=== PATIENT | male | born 1945 | race Caucasian/White ===

== ENCOUNTER 2017-08-26 08:45 | Outpatient (CLI) | payer MEDICARE, OTHER, SELFPAY | END 2017-08-26 09:45 | disposition home or self-care (01) | PROVIDERS: Visit Provider Allergy & Immunology | DX: J45.998 Other asthma (principal) | CPT/HCPCS: 96372; J2357 ==

== ENCOUNTER 2017-09-09 09:11 | Outpatient (CLI) | payer MEDICARE, OTHER, SELFPAY ==
[2017-09-09 09:30] VITALS: BMI 37.5
[2017-09-09 10:47] VITALS: BP 134/73; PULSE 78; RESP 18; TEMP 36.8; O2SAT 91
--- NOTE | 2017-09-09 10:51 | PC.NURSE ---
xolair injection given subcutaneous injection to right arm and left arm. dose divided into 2 doses.
--- NOTE | 2017-09-09 10:55 | PC.NURSE ---
xolair given as 2 subcutaneous injections, i injection to right arm and 1 to left arm.
== END 2017-09-09 10:15 | disposition home or self-care (01) ==
LOC: INF 09:13
PROVIDERS: Visit Provider Allergy & Immunology
DX: J45.998 Other asthma (principal)
CPT/HCPCS: 96372; J2357

== ENCOUNTER 2017-09-23 09:00 | Outpatient (CLI) | payer MEDICARE, OTHER, SELFPAY ==
[2017-09-23 09:24] VITALS: BMI 36.5
[2017-09-23 09:40] VITALS: BP 159/86; PULSE 77; RESP 18; O2SAT 95
== END 2017-09-23 09:55 | disposition home or self-care (01) ==
LOC: INF 09:11
PROVIDERS: Family Provider Allergy & Immunology; Visit Provider Allergy & Immunology
DX: J45.998 Other asthma (principal)
CPT/HCPCS: 96372; J2357

== ENCOUNTER 2017-10-07 10:00 | Outpatient (CLI) | payer MEDICARE, OTHER, SELFPAY ==
[2017-10-07 10:45] VITALS: BP 122/70; PULSE 66; RESP 20; TEMP 36.4; O2SAT 96
[2017-10-07 14:05] VITALS: BP 122/70; PULSE 68; RESP 20; TEMP 36.4; O2SAT 96
== END 2017-10-07 10:55 | disposition home or self-care (01) ==
LOC: INF 10:27
PROVIDERS: Family Provider Allergy & Immunology; Visit Provider Allergy & Immunology
DX: J45.998 Other asthma (principal)
CPT/HCPCS: 96372; J2357

== ENCOUNTER 2017-10-21 08:45 | Outpatient (CLI) | payer MEDICARE, SELFPAY ==
[2017-10-21 09:10] VITALS: BMI 36.5
[2017-10-21 09:30] VITALS: BP 130/78; PULSE 73; RESP 18; TEMP 36.9
[2017-10-21 09:48] VITALS: BP 130/78; PULSE 73; RESP 18; TEMP 36.9
== END 2017-10-21 09:48 | disposition home or self-care (01) ==
LOC: INF 08:52
PROVIDERS: Family Provider Allergy & Immunology; Visit Provider Allergy & Immunology
DX: J45.998 Other asthma (principal)
CPT/HCPCS: 96372; J2357

== ENCOUNTER 2017-12-09 09:15 | Outpatient (CLI) | payer MEDICARE, OTHER, SELFPAY ==
[2017-12-09 09:20] VITALS: BP 136/77; PULSE 76; RESP 18; TEMP 36.9; O2SAT 98
[2017-12-09 10:22] VITALS: BP 136/78; PULSE 76; RESP 18; TEMP 36.6; O2SAT 98
== END 2017-12-09 10:22 | disposition home or self-care (01) ==
LOC: INF 09:27
PROVIDERS: Family Provider Allergy & Immunology; Visit Provider Allergy & Immunology
DX: J45.998 Other asthma (principal)
CPT/HCPCS: 96372; J2357

== ENCOUNTER → 2017-12-21 13:03 | Outpatient (POV) | payer MEDICARE, SELFPAY ==
[2017-12-21 19:48] LABS: T4 (Thyroxine) 8.7 ug/dl (4.7-13.3); Thyroid Stimulating Hormone 1.52 uIU/ml (0.358-3.740); Triiodothryronine (T3) Uptake 34 % (31-39)
[2017-12-22 15:35] LABS: Free T4 (Free Thyroxine) 0.92 ng/dl (0.76-1.46)
[2017-12-23 12:58] LABS: Triiodothyronine (T3) Total 127 ng/dL (71-180)
[2017-12-28 06:16] LABS: AChR Binding Abs <0.03 nmol/L (0.00-0.24)
[2018-01-06 13:45] LABS: AChR Modulating Ab <12 % (0-20)
== END ==
PROVIDERS: Family Provider Allergy & Immunology
DX: D43.2 Neoplasm of uncertain behavior of brain, unspecified (principal); E05.00 Thyrotoxicosis with diffuse goiter without thyrotoxic crisis or storm
CPT/HCPCS: 36415; 84238; 84436; 84439; 84443; 84479; 84480

== ENCOUNTER 2017-12-23 09:22 | Outpatient (CLI) | payer MEDICARE, OTHER, SELFPAY ==
[2017-12-23 10:00] VITALS: BP 137/78; PULSE 81; RESP 18; TEMP 36.4; O2SAT 95
== END 2017-12-23 10:00 | disposition home or self-care (01) ==
LOC: INF 09:22
PROVIDERS: Family Provider Allergy & Immunology; Visit Provider Allergy & Immunology
DX: J45.998 Other asthma (principal)
CPT/HCPCS: 96372; J2357

== ENCOUNTER → 2017-12-26 08:38 | Outpatient (CLI) | payer MEDICARE, SELFPAY ==
[2017-12-26 09:01] LABS: Blood Urea Nitrogen 17 mg/dL (7-18); Creatinine,Serum 1.18 mg/dL (0.70-1.30); Estimated Glomerular Filt Rate 61 ml/min (>60); GFR (African American) 74 ML/MIN (>60)
== END ==
PROVIDERS: Family Provider Allergy & Immunology
DX: D49.6 Neoplasm of unspecified behavior of brain (principal); E05.00 Thyrotoxicosis with diffuse goiter without thyrotoxic crisis or storm
CPT/HCPCS: 36415; 82565; 84520

== ENCOUNTER 2018-01-06 09:00 | Outpatient (CLI) | payer MEDICARE, OTHER, SELFPAY ==
[2018-01-06 09:05] VITALS: BP 139/64; PULSE 86; RESP 18; TEMP 36.8; O2SAT 92
[2018-01-06 09:30] VITALS: BMI 36.5
[2018-01-06 09:50] VITALS: BP 139/64; PULSE 86; RESP 18; TEMP 36.8; O2SAT 92
--- NOTE | 2018-01-06 10:32 | PC.NURSE ---
injection given bilateral upper arm, bandaid applied
== END 2018-01-06 09:50 | disposition home or self-care (01) ==
LOC: INF 09:12
PROVIDERS: Family Provider Allergy & Immunology; Visit Provider Allergy & Immunology
DX: J45.998 Other asthma (principal)
CPT/HCPCS: 96372; J2357

== ENCOUNTER 2018-01-20 08:20 | Outpatient (CLI) | payer MEDICARE, OTHER, SELFPAY ==
[2018-01-20 08:55] VITALS: BP 124/73; PULSE 73; RESP 18; O2SAT 95
== END 2018-01-20 09:15 | disposition home or self-care (01) ==
LOC: INF 08:29
PROVIDERS: Family Provider Allergy & Immunology; Visit Provider Allergy & Immunology
DX: J45.998 Other asthma (principal)
CPT/HCPCS: 96372; J2357

== ENCOUNTER 2018-02-03 08:20 | Outpatient (CLI) | payer MEDICARE, OTHER, SELFPAY ==
[2018-02-03 09:00] VITALS: BP 130/76; PULSE 84; RESP 18; O2SAT 97
== END 2018-02-03 09:20 | disposition home or self-care (01) ==
LOC: INF 08:26
PROVIDERS: Family Provider Allergy & Immunology; Visit Provider Allergy & Immunology
DX: J45.998 Other asthma (principal)
CPT/HCPCS: 96372; J2357

== ENCOUNTER 2018-02-24 08:39 | Outpatient (CLI) | payer MEDICARE, OTHER, SELFPAY ==
[2018-02-24 08:57] VITALS: BP 146/80; PULSE 74; RESP 18; TEMP 36.7; O2SAT 98
== END 2018-02-24 09:16 | disposition home or self-care (01) ==
LOC: INF 08:39
PROVIDERS: Family Provider Allergy & Immunology; Visit Provider Allergy & Immunology
DX: J45.998 Other asthma (principal)
CPT/HCPCS: 96372; J2357

== ENCOUNTER → 2018-03-02 08:02 | Outpatient (CLI) | payer MEDICARE, OTHER, SELFPAY ==
--- NOTE | 2018-03-02 08:29 | CI_ITS ---
Cerebrovascular Exam Indications: Transient vision loss 368.12. 780.4 Dizziness and giddiness. IMPRESSIONS 1. Study suggests 20-49% stenosis involving the right internal carotid artery and the left internal carotid artery. 2. Unable to visualize bilateral veterbrals Carotid duplex study. Complete study and Doppler flow study including spectral analysis, color and hollis scale imaging. Height: Height: 172.7cm. Height: 68in. Weight: Weight: 108.9kg. Weight: 239.5lb. Body mass index: BMI: 36.5kg/m^2. Body surface area: BSA: 2.33m^2. Location: Vascular laboratory. Patient status: Outpatient. Tables: Arterial flow: + +--------+--------+ Location V sys V ed + +--------+--------+ Right CCA - proximal 99.3cm/s 17cm/s + +--------+--------+ Right CCA - distal 80.5cm/s 23.3cm/s + +--------+--------+ Right ECA 114cm/s -------- + +--------+--------+ Right ICA - proximal 106cm/s 23.9cm/s + +--------+--------+ Right ICA - mid 77.3cm/s 28.3cm/s + +--------+--------+ Right ICA - distal 62.9cm/s 22.6cm/s + +--------+--------+ Left CCA - proximal 98.7cm/s 21.4cm/s + +--------+--------+ Left CCA - distal 91.1cm/s 24.5cm/s + +--------+--------+ Left ECA 98.7cm/s -------- + +--------+--------+ Left ICA - proximal 63.8cm/s 26cm/s + +--------+--------+ Left ICA - mid 64.8cm/s 27cm/s + +--------+--------+ Left ICA - distal 78.1cm/s 27cm/s + +--------+--------+ Velocity ratios: + + + + + + Right, V sys Right, V ed Left, V sys Left, V ed + + + + + + Max ICA/dist CCA 1.32 1.21 0.86 1.1 + + + + + + (Report amended ) Electronically signed by: Moises Perkins [id number]
--- NOTE | 2018-03-02 09:07 | CT_ITS ---
CT head/brain wo/w con HISTORY: ITS.REASON: MONOCULAR DIPLOPIA OF LEFT EYE ORDERING PHYSICIAN: Rukhsana Egan MD PATIENT AGE: 72 years COMPARISON: None TECHNIQUE: Axial images obtained without and with 100 mL of 300. Brain and bone windows reviewed. All CT scans at the facility use one or more dose reduction, viz: automated exposure control; ma/kV adjustment per patient size (including targeted exams where dose is matched to indication; i.e. head); or iterative reconstruction technique. FINDINGS: No midline shift, mass effect, intracranial hemorrhage, hydrocephalus, or extra-axial fluid collection is evident. No enhancing lesions are evident. The occipital horn of the right ventricle is slightly prominent compared to the small occipital horn of the left lateral ventricle. This is a question clinical significance. No enhancing lesion or areas of encephalomalacia are evident. The calvarium has an unremarkable appearance. No mastoid effusion. No sinus air-fluid levels.. There is mild mucosal thickening of the left maxillary sinus with small air-fluid level and mild mucosal thickening of the ethmoid sinuses as well as the sphenoid sinuses. IMPRESSION: 1. No acute intracranial findings. 2. Asymmetry in the occipital horns of the lateral ventricles with the right being slightly prominent. This is of questionable clinical significance. MRI may further evaluate if clinically warranted. 3. Mild sinus disease
== END ==
PROVIDERS: Family Provider Allergy & Immunology; PCP Family Medicine; Visit Provider Family Medicine
DX: H53.2 Diplopia (principal)
CPT/HCPCS: 70470; 93880; Q9967

== ENCOUNTER 2018-03-10 09:00 | Outpatient (CLI) | payer MEDICARE, OTHER, SELFPAY ==
[2018-03-10 09:35] VITALS: BP 143/74; PULSE 78; RESP 18; TEMP 36.5; O2SAT 96
== END 2018-03-10 10:00 | disposition home or self-care (01) ==
LOC: INF 09:06
PROVIDERS: Family Provider Allergy & Immunology; PCP Family Medicine; Visit Provider Allergy & Immunology
DX: J45.998 Other asthma (principal)
CPT/HCPCS: 96372; J2357

== ENCOUNTER → 2018-03-15 14:04 | Outpatient (POV) | payer MEDICARE, SELFPAY | PROVIDERS: Family Provider Allergy & Immunology; PCP Family Medicine | DX: Z00.00 Encounter for general adult medical examination without abnormal findings (principal) ==

== ENCOUNTER 2018-03-24 09:15 | Outpatient (CLI) | payer MEDICARE, OTHER, SELFPAY ==
[2018-03-24 09:35] VITALS: BP 135/82; PULSE 83; RESP 18; O2SAT 95
== END 2018-03-24 09:55 | disposition home or self-care (01) ==
LOC: INF 09:25
PROVIDERS: Family Provider Allergy & Immunology; PCP Family Medicine; Visit Provider Allergy & Immunology
DX: J45.998 Other asthma (principal)
CPT/HCPCS: 96372; J2357

== ENCOUNTER 2018-04-07 08:45 | Outpatient (CLI) | payer MEDICARE, OTHER, SELFPAY ==
[2018-04-07 09:25] VITALS: BP 123/77; PULSE 78; RESP 18; O2SAT 96
== END 2018-04-07 09:25 | disposition home or self-care (01) ==
LOC: INF 08:45
PROVIDERS: Family Provider Allergy & Immunology; PCP Family Medicine; Visit Provider Allergy & Immunology
DX: J45.998 Other asthma (principal)
CPT/HCPCS: 96372; J2357

== ENCOUNTER 2018-04-21 08:46 | Outpatient (CLI) | payer MEDICARE, OTHER, SELFPAY ==
[2018-04-21 09:10] VITALS: BP 151/91; PULSE 77; RESP 18; TEMP 36.6; O2SAT 96
== END 2018-04-21 09:40 | disposition home or self-care (01) ==
LOC: INF 08:46
PROVIDERS: Family Provider Allergy & Immunology; PCP Family Medicine; Visit Provider Allergy & Immunology
DX: J45.998 Other asthma (principal)
CPT/HCPCS: 96372; J2357

== ENCOUNTER 2018-05-05 09:05 | Outpatient (CLI) | payer MEDICARE, OTHER, SELFPAY ==
[2018-05-05 09:40] VITALS: BP 156/82; PULSE 82; RESP 20; O2SAT 96
== END 2018-05-05 10:00 | disposition home or self-care (01) ==
LOC: INF 09:18
PROVIDERS: Family Provider Allergy & Immunology; PCP Family Medicine; Visit Provider Allergy & Immunology
DX: J45.998 Other asthma (principal)
CPT/HCPCS: 96372; J2357

== ENCOUNTER 2018-05-19 08:55 | Outpatient (CLI) | payer MEDICARE, OTHER, SELFPAY ==
[2018-05-19 09:20] VITALS: BP 140/90; PULSE 81; RESP 18; O2SAT 96
== END 2018-05-19 09:40 | disposition home or self-care (01) ==
LOC: INF 09:05
PROVIDERS: PCP Family Medicine; Visit Provider Allergy & Immunology
DX: J45.998 Other asthma (principal)
CPT/HCPCS: 96372; J2357

== ENCOUNTER 2018-06-02 09:00 | Outpatient (CLI) | payer MEDICARE, OTHER, SELFPAY ==
[2018-06-02 09:35] VITALS: BP 119/78; PULSE 80; RESP 18; TEMP 36.6; O2SAT 96
--- NOTE | 2018-06-02 13:53 | PC.NURSE ---
given in both arms
== END 2018-06-02 09:45 | disposition home or self-care (01) ==
LOC: INF 09:16
PROVIDERS: Family Provider Allergy & Immunology; PCP Family Medicine; Visit Provider Allergy & Immunology
DX: J45.998 Other asthma (principal)
CPT/HCPCS: 96372; J2357

== ENCOUNTER 2018-06-23 09:16 | Outpatient (CLI) | payer MEDICARE, OTHER, SELFPAY ==
[2018-06-23 09:18] VITALS: BP 117/72; PULSE 80; RESP 20; TEMP 36.9; O2SAT 96
--- NOTE | 2018-06-23 09:35 | PC.NURSE ---
given in both arms;
== END 2018-06-23 09:39 | disposition home or self-care (01) ==
LOC: INF 09:16
PROVIDERS: Visit Provider Allergy & Immunology
DX: J45.998 Other asthma (principal)
CPT/HCPCS: 96372; J2357

== ENCOUNTER 2018-07-07 09:00 | Outpatient (CLI) | payer MEDICARE, OTHER, SELFPAY ==
[2018-07-07 09:00] VITALS: BP 128/77; PULSE 68; RESP 20; TEMP 36.9; O2SAT 95
--- NOTE | 2018-07-07 12:05 | PC.NURSE ---
injection given in both arms
== END 2018-07-07 09:30 | disposition home or self-care (01) ==
LOC: INF 09:34
PROVIDERS: Visit Provider Allergy & Immunology
DX: J45.998 Other asthma (principal)
CPT/HCPCS: 96372; J2357

== ENCOUNTER 2018-07-19 08:53 | Outpatient (CLI) | payer MEDICARE, OTHER, SELFPAY ==
[2018-07-19 09:18] VITALS: BP 128/71; PULSE 86; RESP 18; TEMP 36.6; O2SAT 97
== END 2018-07-19 09:29 | disposition home or self-care (01) ==
LOC: INF 08:53
PROVIDERS: Visit Provider Allergy & Immunology
DX: J45.998 Other asthma (principal)
CPT/HCPCS: 96372; J2357

== ENCOUNTER 2018-08-04 09:25 | Outpatient (CLI) | payer MEDICARE, OTHER, SELFPAY ==
[2018-08-04 09:42] VITALS: BP 126/73; PULSE 83; RESP 18; TEMP 36.5
== END 2018-08-04 10:00 | disposition home or self-care (01) ==
LOC: INF 09:33
PROVIDERS: Visit Provider Allergy & Immunology
DX: J45.998 Other asthma (principal)
CPT/HCPCS: 96372; J2357

== ENCOUNTER 2018-10-06 09:00 | Outpatient (CLI) | payer MEDICARE, OTHER, SELFPAY ==
[2018-10-06 09:25] VITALS: BP 136/74; PULSE 89; RESP 18; TEMP 36.9; O2SAT 94
[2018-10-06 09:40] VITALS: BP 136/74; PULSE 89; RESP 18; TEMP 36.9; O2SAT 94
== END 2018-10-06 09:40 | disposition home or self-care (01) ==
LOC: INF 09:40
PROVIDERS: Visit Provider Allergy & Immunology
DX: J45.998 Other asthma (principal)
CPT/HCPCS: 96372; J2357

== ENCOUNTER 2018-10-17 09:18 | Outpatient (CLI) | payer MEDICARE, OTHER, SELFPAY ==
[2018-10-17 09:21] VITALS: BP 134/77; PULSE 69; RESP 18; TEMP 36.7; O2SAT 95; BMI 35.7
== END 2018-10-17 09:40 | disposition home or self-care (01) ==
LOC: INF 09:18
PROVIDERS: Visit Provider Allergy & Immunology
DX: J45.998 Other asthma (principal)
CPT/HCPCS: 96372; J2357

== ENCOUNTER 2018-11-03 09:00 | Outpatient (CLI) | payer MEDICARE, OTHER, SELFPAY ==
[2018-11-03 09:30] VITALS: BP 137/72; PULSE 95; RESP 18; O2SAT 96
== END 2018-11-03 09:45 | disposition home or self-care (01) ==
LOC: INF 09:07
PROVIDERS: Visit Provider Allergy & Immunology
DX: J45.998 Other asthma (principal)
CPT/HCPCS: 96372; J2357

== ENCOUNTER 2018-11-17 09:23 | Outpatient (CLI) | payer MEDICARE, OTHER, SELFPAY ==
[2018-11-17 10:00] VITALS: BP 137/73; PULSE 77; RESP 18; O2SAT 96
== END 2018-11-17 10:00 | disposition home or self-care (01) ==
LOC: INF 09:23
PROVIDERS: Visit Provider Allergy & Immunology
DX: J45.998 Other asthma (principal)
CPT/HCPCS: 96372; J2357

== ENCOUNTER 2018-12-01 09:29 | Outpatient (CLI) | payer MEDICARE, OTHER, SELFPAY ==
[2018-12-01 09:50] VITALS: BP 141/75; PULSE 83; RESP 18; TEMP 36.9; O2SAT 91
== END 2018-12-01 10:05 | disposition home or self-care (01) ==
LOC: INF 09:29
PROVIDERS: Visit Provider Allergy & Immunology
DX: J45.998 Other asthma (principal)
CPT/HCPCS: 96372; J2357

== ENCOUNTER 2018-12-29 08:40 | Outpatient (CLI) | payer MEDICARE, OTHER, SELFPAY ==
[2018-12-29 09:10] VITALS: BP 155/76; PULSE 79; RESP 18; TEMP 36.6; O2SAT 95
== END 2018-12-29 09:20 | disposition home or self-care (01) ==
LOC: INF 08:47
PROVIDERS: Visit Provider Allergy & Immunology
DX: J45.998 Other asthma (principal)
CPT/HCPCS: 96372; J2357

== ENCOUNTER 2019-01-12 08:55 | Outpatient (CLI) | payer MEDICARE, OTHER, SELFPAY ==
[2019-01-12 09:10] VITALS: BP 151/84; PULSE 77; RESP 18; TEMP 36.6; O2SAT 95
== END 2019-01-12 09:30 | disposition home or self-care (01) ==
LOC: INF 08:55
PROVIDERS: Visit Provider Allergy & Immunology
DX: J45.998 Other asthma (principal)
CPT/HCPCS: 96372; J2357

== ENCOUNTER 2019-01-26 09:13 | Outpatient (CLI) | payer MEDICARE, OTHER, SELFPAY ==
[2019-01-26 09:20] VITALS: BP 128/74; PULSE 68; RESP 20; TEMP 36.9; O2SAT 95
[2019-01-26 09:40] VITALS: BP 112/74; PULSE 68; RESP 20; TEMP 36.9; O2SAT 95
== END 2019-01-26 09:40 | disposition home or self-care (01) ==
LOC: INF 09:13
PROVIDERS: Visit Provider Allergy & Immunology
DX: J45.998 Other asthma (principal)
CPT/HCPCS: 96372; J2357

== ENCOUNTER 2019-02-09 09:29 | Outpatient (CLI) | payer MEDICARE, OTHER, SELFPAY ==
--- NOTE | 2019-02-09 09:31 | PC.NURSE ---
given in both arms xolair
[2019-02-09 09:33] VITALS: BP 145/75; PULSE 76; RESP 20; TEMP 36.7; O2SAT 95
== END 2019-02-09 09:36 | disposition home or self-care (01) ==
LOC: INF 09:29
PROVIDERS: Visit Provider Allergy & Immunology
DX: J45.998 Other asthma (principal)
CPT/HCPCS: 96372; J2357

== ENCOUNTER → 2019-02-21 14:21 | Outpatient (POV) | payer MEDICARE, OTHER, SELFPAY | DX: Z00.00 Encounter for general adult medical examination without abnormal findings (principal) ==

== ENCOUNTER 2019-03-09 09:00 | Outpatient (CLI) | payer MEDICARE, OTHER, SELFPAY ==
[2019-03-09 09:19] VITALS: BP 141/79; PULSE 80; RESP 20; TEMP 36.7; O2SAT 96
== END 2019-03-09 09:30 | disposition home or self-care (01) ==
LOC: INF 09:00
PROVIDERS: Visit Provider Allergy & Immunology
DX: J45.998 Other asthma (principal)
CPT/HCPCS: 96372; J2357

== ENCOUNTER 2019-03-23 09:05 | Outpatient (CLI) | payer MEDICARE, OTHER, SELFPAY ==
[2019-03-23 09:32] VITALS: BP 154/84; PULSE 83; RESP 18; O2SAT 97
== END 2019-03-23 09:32 | disposition home or self-care (01) ==
LOC: INF 09:05
PROVIDERS: Visit Provider Allergy & Immunology
DX: J45.998 Other asthma (principal)
CPT/HCPCS: 96372; J2357

== ENCOUNTER 2019-04-06 09:00 | Outpatient (CLI) | payer MEDICARE, OTHER, SELFPAY ==
[2019-04-06 09:15] VITALS: BP 157/77; PULSE 67; RESP 18; O2SAT 96
== END 2019-04-06 09:30 | disposition home or self-care (01) ==
LOC: INF 09:03
PROVIDERS: Visit Provider Allergy & Immunology
DX: J45.998 Other asthma (principal)
CPT/HCPCS: 96372; J2357

== ENCOUNTER 2019-04-20 08:58 | Outpatient (CLI) | payer MEDICARE, OTHER, SELFPAY ==
[2019-04-20 09:16] VITALS: BP 124/75; PULSE 74; RESP 18; O2SAT 96
== END 2019-04-20 09:30 | disposition home or self-care (01) ==
LOC: INF 09:04
PROVIDERS: Visit Provider Allergy & Immunology
DX: J45.998 Other asthma (principal)
CPT/HCPCS: 96372; J2357

== ENCOUNTER 2019-05-04 09:26 | Outpatient (CLI) | payer MEDICARE, OTHER, SELFPAY ==
[2019-05-04 09:34] VITALS: BP 132/76; PULSE 77; RESP 18; O2SAT 96
== END 2019-05-04 09:39 | disposition home or self-care (01) ==
LOC: INF 09:26
PROVIDERS: Visit Provider Allergy & Immunology
DX: J45.998 Other asthma (principal)
CPT/HCPCS: 96372; J2357

== ENCOUNTER 2019-05-18 09:20 | Outpatient (CLI) | payer MEDICARE, OTHER, SELFPAY ==
[2019-05-18 09:45] VITALS: BP 140/76; PULSE 81; RESP 20; O2SAT 95
== END 2019-05-18 10:05 | disposition home or self-care (01) ==
LOC: INF 09:34
PROVIDERS: Visit Provider Allergy & Immunology
DX: J45.998 Other asthma (principal)
CPT/HCPCS: 96372; J2357

== ENCOUNTER 2019-06-15 09:16 | Outpatient (CLI) | payer MEDICARE, OTHER, SELFPAY ==
[2019-06-15 09:35] VITALS: BP 159/80; PULSE 85; RESP 18; O2SAT 93
== END 2019-06-15 09:35 | disposition home or self-care (01) ==
LOC: INF 09:16
PROVIDERS: Visit Provider Allergy & Immunology
DX: J45.998 Other asthma (principal)
CPT/HCPCS: 96372; J2357

== ENCOUNTER 2019-06-29 09:15 | Outpatient (CLI) | payer MEDICARE, OTHER, SELFPAY ==
[2019-06-29 09:31] VITALS: BP 129/70; PULSE 73; RESP 18; TEMP 36.6; O2SAT 96
== END 2019-06-29 10:00 | disposition home or self-care (01) ==
LOC: INF 09:15
PROVIDERS: Visit Provider Allergy & Immunology
DX: J45.998 Other asthma (principal)
CPT/HCPCS: 96372; J2357

== ENCOUNTER 2019-07-13 09:00 | Outpatient (CLI) | payer MEDICARE, OTHER, SELFPAY ==
[2019-07-13 09:25] VITALS: BP 140/79; PULSE 79; RESP 18; O2SAT 98
== END 2019-07-13 09:40 | disposition home or self-care (01) ==
LOC: INF 09:08
PROVIDERS: Visit Provider Allergy & Immunology
DX: J45.998 Other asthma (principal)
CPT/HCPCS: 96372; J2357

== ENCOUNTER → 2019-07-18 14:15 | Outpatient (POV) | payer MEDICARE, OTHER, SELFPAY | DX: Z00.00 Encounter for general adult medical examination without abnormal findings (principal) ==

== ENCOUNTER 2019-08-03 09:10 | Outpatient (CLI) | payer MEDICARE, OTHER, SELFPAY ==
[2019-08-03 09:10] VITALS: BP 144/89; PULSE 89; RESP 20; TEMP 36.9; O2SAT 95
== END 2019-08-03 09:30 | disposition home health service (06) ==
LOC: INF 09:11
PROVIDERS: Visit Provider Nurse Practitioner
DX: J45.998 Other asthma (principal)
CPT/HCPCS: 96372; J2357

== ENCOUNTER 2019-08-17 09:02 | Outpatient (CLI) | payer MEDICARE, OTHER, SELFPAY ==
[2019-08-17 08:20] VITALS: BP 155/84; PULSE 82; RESP 20; TEMP 36.9; O2SAT 95
== END 2019-08-17 09:25 | disposition home or self-care (01) ==
LOC: INF 09:02
PROVIDERS: Visit Provider Allergy & Immunology
DX: J45.998 Other asthma (principal)
CPT/HCPCS: 96372; J2357

== ENCOUNTER 2019-08-31 08:55 | Outpatient (CLI) | payer MEDICARE, OTHER, SELFPAY ==
[2019-08-31 09:15] VITALS: BP 153/86; PULSE 80; RESP 20; O2SAT 94
== END 2019-08-31 09:28 | disposition home or self-care (01) ==
LOC: INF 09:03
PROVIDERS: Visit Provider Allergy & Immunology
DX: J45.998 Other asthma (principal)
CPT/HCPCS: 96372; J2357

== ENCOUNTER → 2019-09-14 09:00 | Outpatient (CLI) | payer MEDICARE, OTHER, SELFPAY ==
[2019-09-14 09:25] VITALS: BP 144/76; PULSE 77; RESP 18; O2SAT 95
== END ==
PROVIDERS: Visit Provider Nurse Practitioner
DX: J45.998 Other asthma (principal)
CPT/HCPCS: 96372; J2357

== ENCOUNTER 2019-09-27 09:06 | Outpatient (CLI) | payer MEDICARE, OTHER, SELFPAY ==
[2019-09-27 09:15] VITALS: BP 139/81; PULSE 70; RESP 20; TEMP 37.1; O2SAT 95
== END 2019-09-27 09:40 | disposition home or self-care (01) ==
LOC: INF 09:06
PROVIDERS: Visit Provider Allergy & Immunology
DX: J45.998 Other asthma (principal)
CPT/HCPCS: 96372; J2357

== ENCOUNTER 2019-10-12 09:18 | Outpatient (CLI) | payer MEDICARE, OTHER, SELFPAY ==
[2019-10-12 09:40] VITALS: BP 136/85; PULSE 75; RESP 20; TEMP 36.9; O2SAT 95
== END 2019-10-12 10:10 | disposition home or self-care (01) ==
LOC: INF 09:18
PROVIDERS: Visit Provider Allergy & Immunology
DX: J45.998 Other asthma (principal)
CPT/HCPCS: 96372; J2357

== ENCOUNTER 2019-10-26 09:26 | Outpatient (CLI) | payer MEDICARE, OTHER, SELFPAY ==
[2019-10-26 09:37] VITALS: BP 155/81; PULSE 84; RESP 18; TEMP 36.3; O2SAT 98
== END 2019-10-26 10:00 | disposition home or self-care (01) ==
LOC: INF 09:26
PROVIDERS: Visit Provider Allergy & Immunology
DX: J45.998 Other asthma (principal)
CPT/HCPCS: 96372; J2357

== ENCOUNTER 2019-11-09 09:05 | Outpatient (CLI) | payer MEDICARE, OTHER, SELFPAY ==
[2019-11-09 09:48] VITALS: BP 165/88; PULSE 74; RESP 20; O2SAT 98
== END 2019-11-09 09:48 | disposition home or self-care (01) ==
LOC: INF 09:05
PROVIDERS: Visit Provider Allergy & Immunology
DX: J45.998 Other asthma (principal)
CPT/HCPCS: 96372; J2357

== ENCOUNTER 2019-11-23 08:58 | Outpatient (CLI) | payer MEDICARE, OTHER, SELFPAY ==
[2019-11-23 09:30] VITALS: BP 125/78; PULSE 73; RESP 20; TEMP 37
== END 2019-11-23 09:30 | disposition home or self-care (01) ==
LOC: INF 08:58
PROVIDERS: Visit Provider Nurse Practitioner
DX: J45.998 Other asthma (principal)
CPT/HCPCS: 96372; J2357

== ENCOUNTER 2019-12-07 08:53 | Outpatient (CLI) | payer MEDICARE, OTHER, SELFPAY ==
[2019-12-07 08:53] VITALS: BP 162/96; PULSE 80; RESP 20; TEMP 36.9; O2SAT 95
== END 2019-12-07 09:23 | disposition home or self-care (01) ==
LOC: INF 08:54
PROVIDERS: Visit Provider Allergy & Immunology
DX: J45.998 Other asthma (principal)
CPT/HCPCS: 96372; J2357

== ENCOUNTER 2019-12-21 11:25 | Outpatient (CLI) | payer MEDICARE, OTHER, SELFPAY ==
[2019-12-21 11:45] VITALS: BP 147/84; PULSE 79; RESP 18; TEMP 36.6; O2SAT 97
== END 2019-12-21 11:55 | disposition home or self-care (01) ==
LOC: INF 11:30
PROVIDERS: Visit Provider Allergy & Immunology
DX: J45.998 Other asthma (principal)
CPT/HCPCS: 96372; J2357

== ENCOUNTER 2020-01-04 08:55 | Outpatient (CLI) | payer MEDICARE, OTHER, SELFPAY ==
[2020-01-04 08:58] VITALS: BP 148/88; PULSE 80; RESP 20; TEMP 36.9; O2SAT 95
--- NOTE | 2020-01-04 09:05 | PC.NURSE ---
GIVEN IN BOTH ARMS
== END 2020-01-04 09:30 | disposition home or self-care (01) ==
LOC: INF 08:55
PROVIDERS: Visit Provider Allergy & Immunology
DX: J45.998 Other asthma (principal)
CPT/HCPCS: 96372; 96374; J2357

== ENCOUNTER → 2020-01-09 13:34 | Outpatient (POV) | payer MEDICARE, OTHER, SELFPAY | DX: Z00.00 Encounter for general adult medical examination without abnormal findings (principal) ==

== ENCOUNTER 2020-01-18 08:45 | Outpatient (CLI) | payer MEDICARE, OTHER, SELFPAY ==
[2020-01-18 08:45] VITALS: BP 126/80; PULSE 68; RESP 20; TEMP 36.9; O2SAT 95
== END 2020-01-18 09:30 | disposition home or self-care (01) ==
LOC: INF 08:55
PROVIDERS: Visit Provider Allergy & Immunology
DX: J45.998 Other asthma (principal)
CPT/HCPCS: 96372; J2357

== ENCOUNTER 2020-02-01 08:45 | Outpatient (CLI) | payer MEDICARE, OTHER, SELFPAY ==
[2020-02-01 09:15] VITALS: BP 150/76; PULSE 80; RESP 20; TEMP 36.8
== END 2020-02-01 09:25 | disposition home or self-care (01) ==
LOC: INF 08:55
PROVIDERS: Visit Provider Allergy & Immunology
DX: J45.998 Other asthma (principal)
CPT/HCPCS: 96372; J2357

== ENCOUNTER 2020-02-15 08:10 | Outpatient (CLI) | payer MEDICARE, OTHER, SELFPAY ==
[2020-02-15 08:45] VITALS: BP 139/77; PULSE 83; RESP 20; TEMP 36.9; O2SAT 95
[2020-02-15 09:00] VITALS: BP 135/74; PULSE 77; RESP 20; TEMP 36.9; O2SAT 95
== END 2020-02-15 09:10 | disposition home or self-care (01) ==
LOC: INF 08:19
PROVIDERS: Visit Provider Allergy & Immunology
DX: J45.998 Other asthma (principal)
CPT/HCPCS: 96372; J2357

== ENCOUNTER 2020-02-29 08:00 | Outpatient (CLI) | payer MEDICARE, OTHER, SELFPAY ==
[2020-02-29 08:20] VITALS: BP 121/67; PULSE 80; RESP 18; TEMP 36.7
== END 2020-02-29 08:35 | disposition home or self-care (01) ==
LOC: INF 08:09
PROVIDERS: Visit Provider Allergy & Immunology
DX: J45.998 Other asthma (principal)
CPT/HCPCS: 96372; J2357

== ENCOUNTER 2020-03-14 09:20 | Outpatient (CLI) | payer MEDICARE, OTHER, SELFPAY ==
[2020-03-14 09:44] VITALS: BP 150/83; PULSE 88; RESP 18; TEMP 36.2; O2SAT 98
== END 2020-03-14 09:44 | disposition home or self-care (01) ==
LOC: INF 09:20
PROVIDERS: Visit Provider Allergy & Immunology
DX: J45.998 Other asthma (principal)
CPT/HCPCS: 96372; J2357

== ENCOUNTER → 2020-03-28 09:01 | Outpatient (CLI) | payer MEDICARE, OTHER, SELFPAY ==
[2020-03-28 09:20] VITALS: BP 112/78; PULSE 87; RESP 18; TEMP 36.6; O2SAT 96
== END ==
PROVIDERS: Visit Provider Allergy & Immunology
DX: J45.998 Other asthma (principal)
CPT/HCPCS: 96372; J2357

== ENCOUNTER 2020-04-10 08:46 | Outpatient (CLI) | payer MEDICARE, OTHER, SELFPAY ==
[2020-04-10 09:00] VITALS: BP 153/82; PULSE 74; RESP 18; TEMP 36.4; O2SAT 96
== END 2020-04-10 09:13 | disposition home or self-care (01) ==
LOC: INF 08:47
PROVIDERS: Visit Provider Allergy & Immunology
DX: J45.998 Other asthma (principal)
CPT/HCPCS: 96372; J2357

== ENCOUNTER → 2020-04-23 13:30 | Outpatient (CLI) | payer MEDICARE, OTHER, SELFPAY ==
--- NOTE | 2020-04-23 13:37 | CA_ITS ---
APPROVED REPORT EXAM: Comprehensive 2D, Doppler, and color-flow Echocardiogram Lip And Gate Builder: Luz Gentile RVT Ht: 5 ft 7 in Wt: 250lbs BSA: 2.22 BP: 132/67 mmHg Indications: EDEMA,HTN,HLD TDS 2D Dimensions LVOT 2.11 cm (M/F) 1.5-2.5 M-Mode Dimensions RVDd 3.71 cm (0.9-2.6) LVDd 4.70 cm (3.5-5.7) LVDs 2.33 cm (3.5-5.7) IVSd 0.80 cm (0.6-1.1) PWd 0.58 cm (0.6-1.1) EF (Teich) 81.70% FS 50.40% EDV (Teich) 102.40 mL ESV (Teich) 18.70 mL LV Diastology E/A Ratio 0.83 Mitral Valve MV A Velocity 79.00 (40-130 cm/s) Left Ventricle Left atrium is mildly enlarged, left ventricle is normal size, mild concentric left ventricular hypertrophy, visually estimated ejection fraction 55% with no regional wall motion abnormality, grade 1 diastolic dysfunction seen with tissue Doppler evidence of raise left atrial pressure. Right Ventricle Right atrium and right ventricular mildly enlarged with normal contractility. Aortic Valve Aortic valve is minimally thickened and fibrosed, there is no aortic stenosis or aortic insufficiency. Mitral Valve Mitral valve is minimally thickened, there is mild mitral regurgitation. Tricuspid Valve Tricuspid valve is grossly normal, there is mild tricuspid regurgitation, tricuspid regurgitation jet velocity is inadequate for calculation of the right ventricular systolic pressure. Pulmonic Valve Pulmonic valve is poorly visualized. Great Vessels Aortic root is normal size. Pericardium No significant pericardial effusion noted. Conclusion 1. Mild biatrial enlargement, normal left ventricular size, mild concentric left ventricular hypertrophy, visually estimated ejection fraction 55% with no regional wall motion abnormality, grade 1 diastolic dysfunction seen with tissue Doppler evidence of raise left atrial pressure. 2. Mildly enlarged right ventricle with normal contractility. 3. Mild mitral and tricuspid regurgitation. 4. No significant pericardial effusion noted. Electronically signed by : Willian Robbins, 04/24/2020 15:02:44
--- NOTE | 2020-04-23 14:11 | US_ITS ---
PROCEDURE: US KIDNEY CLINICAL INDICATION: EDEMA,PROTEINURIA COMPARISON: No exams were available for comparison FINDINGS: The right kidney is [id number]. No hydronephrosis, cortical thinning, or renal mass or perinephric fluid collection is evident. There is a small cyst along the upper pole of the right kidney at 1 cm by 1.5 cm The left kidney is [id number]. There is a small amount fluid along the lower pole of the left kidney anteriorly. There is some minimal cortical thinning of the left kidney. IMPRESSION: No hydronephrosis. Small right renal cyst. Small amount fluid is noted along the anterior aspect of the left kidney inferiorly with mild left renal cortical thinning. Dictated by: Moises Perkins MD 04/23/2020 15:50 Moises Perkins MD in [place] 04/23/2020 15:50
== END ==
PROVIDERS: PCP Family Medicine; Visit Provider Family Medicine
DX: R60.0 Localized edema (principal); R80.9 Proteinuria, unspecified
CPT/HCPCS: 76770; 93306

== ENCOUNTER 2020-04-25 08:50 | Outpatient (CLI) | payer MEDICARE, OTHER, SELFPAY ==
[2020-04-25 09:00] VITALS: BP 126/80; PULSE 84; RESP 20; TEMP 36.9; O2SAT 98
== END 2020-04-25 09:30 | disposition home or self-care (01) ==
LOC: INF 08:51
PROVIDERS: Visit Provider Allergy & Immunology
DX: J45.998 Other asthma (principal)
CPT/HCPCS: 96372; J2357

== ENCOUNTER 2020-05-09 08:51 | Outpatient (CLI) | payer MEDICARE, OTHER, SELFPAY ==
[2020-05-09 09:05] VITALS: BP 127/75; PULSE 80; RESP 18; TEMP 36.3; O2SAT 96
== END 2020-05-09 09:25 | disposition home or self-care (01) ==
LOC: INF 08:51
PROVIDERS: Visit Provider Allergy & Immunology
DX: J45.998 Other asthma (principal)
CPT/HCPCS: 96372; J2357

== ENCOUNTER 2020-05-23 08:50 | Outpatient (CLI) | payer MEDICARE, OTHER, SELFPAY ==
[2020-05-23 09:20] VITALS: BP 138/73; PULSE 77; RESP 18; TEMP 36.6; O2SAT 95
== END 2020-05-23 09:35 | disposition home or self-care (01) ==
LOC: INF 08:54
PROVIDERS: Visit Provider Allergy & Immunology
DX: J45.998 Other asthma (principal)
CPT/HCPCS: 96372; J2357

== ENCOUNTER 2020-06-06 08:35 | Outpatient (CLI) | payer MEDICARE, OTHER, SELFPAY ==
[2020-06-06 09:00] VITALS: BP 148/73; PULSE 85; RESP 18; TEMP 36.3; O2SAT 96
== END 2020-06-06 09:15 | disposition home or self-care (01) ==
LOC: INF 08:42
PROVIDERS: Visit Provider Allergy & Immunology
DX: J45.998 Other asthma (principal)
CPT/HCPCS: 96372; J2357

== ENCOUNTER 2020-06-19 09:30 | Outpatient (CLI) | payer MEDICARE, OTHER, SELFPAY ==
[2020-06-19 10:00] VITALS: BP 139/82; PULSE 78; RESP 18; TEMP 36.5
== END 2020-06-19 10:00 | disposition home or self-care (01) ==
LOC: INF 09:36
PROVIDERS: Visit Provider Allergy & Immunology
DX: J45.998 Other asthma (principal)
CPT/HCPCS: 96372; J2357

== ENCOUNTER 2020-07-04 08:45 | Outpatient (CLI) | payer MEDICARE, OTHER, SELFPAY ==
[2020-07-04 09:15] VITALS: BP 146/74; PULSE 82; RESP 20; TEMP 36.4; O2SAT 97
== END 2020-07-04 09:30 | disposition home or self-care (01) ==
LOC: INF 08:54
PROVIDERS: Visit Provider Allergy & Immunology
DX: J45.998 Other asthma (principal)
CPT/HCPCS: 96372; J2357

== ENCOUNTER 2020-07-21 08:40 | Outpatient (CLI) | payer MEDICARE, OTHER, SELFPAY ==
[2020-07-21 09:11] VITALS: BP 133/86; PULSE 74; RESP 20; TEMP 36.4; O2SAT 97
== END 2020-07-21 09:11 | disposition home or self-care (01) ==
LOC: INF 08:43
PROVIDERS: Visit Provider Allergy & Immunology
DX: J45.998 Other asthma (principal)
CPT/HCPCS: 96372; J2357

== ENCOUNTER 2020-08-08 08:58 | Outpatient (CLI) | payer MEDICARE, OTHER, SELFPAY ==
[2020-08-08 09:00] VITALS: BP 163/79; PULSE 68; RESP 20; TEMP 36.9; O2SAT 95
[2020-08-08 09:35] VITALS: BP 111/73; PULSE 68; RESP 20; TEMP 37.1; O2SAT 95
== END 2020-08-08 09:45 | disposition home or self-care (01) ==
LOC: INF 08:58
PROVIDERS: Visit Provider Allergy & Immunology
DX: J45.998 Other asthma (principal)
CPT/HCPCS: 96372; J2357

== ENCOUNTER 2020-08-20 08:40 | Outpatient (CLI) | payer MEDICARE, OTHER, SELFPAY ==
[2020-08-20 08:55] VITALS: BP 139/85; PULSE 79; RESP 20; TEMP 35.9; O2SAT 97
== END 2020-08-20 09:15 | disposition home or self-care (01) ==
LOC: INF 08:43
PROVIDERS: Visit Provider Allergy & Immunology
DX: J45.998 Other asthma (principal)
CPT/HCPCS: 96372; J2357

== ENCOUNTER 2020-09-05 08:35 | Outpatient (CLI) | payer MEDICARE, OTHER, SELFPAY ==
[2020-09-05 08:35] VITALS: BP 136/76; PULSE 87; RESP 20; TEMP 36.9; O2SAT 95
[2020-09-05 09:15] VITALS: BP 136/79; PULSE 87; RESP 20; TEMP 36.9; O2SAT 97
== END 2020-09-05 09:10 | disposition home or self-care (01) ==
LOC: INF 08:40
PROVIDERS: Visit Provider Allergy & Immunology
DX: J45.998 Other asthma (principal)
CPT/HCPCS: 96372; J2357

== ENCOUNTER 2020-09-19 08:54 | Outpatient (CLI) | payer MEDICARE, OTHER, SELFPAY ==
[2020-09-19 09:22] VITALS: BP 153/73; PULSE 74; RESP 18; TEMP 36.4; O2SAT 98
== END 2020-09-19 09:42 | disposition home or self-care (01) ==
LOC: INF 08:54
PROVIDERS: Visit Provider Allergy & Immunology
DX: J45.998 Other asthma (principal)
CPT/HCPCS: 96372; J2357

== ENCOUNTER → 2020-09-29 10:12 | Outpatient (CLI) | payer MEDICARE, OTHER, SELFPAY ==
[2020-09-29 10:16] LABS: Microscopic, Urine URINE MICROSCOPIC (MICROSCOPIC)
[2020-09-29 10:45] LABS: Appearance,Urine CLEAR (Clear); Bilirubin,Urine Negative (Negative); Blood, Urine Negative (Negative); Color,Urine YELLOW (Yellow); Glucose,Urine (UA) Negative (Negative); Ketones,Urine Negative (Negative); Leukocyte Esterase,Urine TRACE (Negative); Nitrate,Urine POSITIVE (Negative); Protein,Urine TRACE (Negative); Urobilinogen,Urine 0.2 EU/dl (0.2)
[2020-09-29 10:52] LABS: Creatinine,Urine Random 89 mg/dL (Not Estab.)
[2020-09-29 11:03] LABS: Basophils # 0.1 K/mm3 (0-0.2); Basophils % 1.1 % (0.1-2.0); Eosinophils # 0.2 K/mm3 (0.0-0.4); Eosinophils % 3.2 % (0.1-12.0); Hematocrit 45.9 % (42.0-52.0); Hemoglobin 15.7 g/dL (14.1-18.0); Lymphocytes # 2.9 K/mm3 (0.7-4.5); Lymphocytes % 42.4 % (10-50); Mean Corpuscular HGB Conc 34.1 g/dL (31.8-35.4); Mean Corpuscular Hemoglobin 30.6 pg (27.0-31.2); Mean Corpuscular Volume 89.7 fl (80-94); Mean Platelet Volume 7.8 fl (7.4-10.4); Monocytes # 0.3 K/mm3 (0.1-1.0); Monocytes % 3.9 % (1.7-9.3); Neutrophils # 3.4 K/mm3 (1.8-7.8); Neutrophils % 49.5 % (37.0-80.0); Platelet Count 261 K/mm3 (142-424); Red Blood Count 5.12 M/mm3 (4.60-6.20); White Blood Count 6.8 K/mm3 (4.8-10.8)
[2020-09-29 11:06] LABS: Albumin Level 4.6 g/dl (3.5-5.0); Anion Gap 13.4 mEq/L (5-15); Blood Urea Nitrogen 17 mg/dl (9-20); Calcium 9.7 mg/dl (8.4-10.2); Carbon Dioxide 24 mmol/L (22.0-30.0); Chloride 105 mmol/L (98-107); Estimated Glomerular Filt Rate 83 ml/min (>60); GFR (African American) 100 ML/MIN (>60); Glucose 155 mg/dl (74-100); Phosphorous 3.3 mg/dl (2.5-4.5); Potassium 4.4 mmoL/L (3.5-5.1); Sodium 138 mmol/L (136-145)
[2020-09-29 11:18] LABS: Intact Parathyroid Hormone 60.5 pg/mL (7.5-53.5)
[2020-09-29 11:24] LABS: 25-OH Vitamin D, Total 22.3 ng/mL (30-100)
[2020-09-29 11:34] LABS: Bacteria,Urine 2+ /lpf; RBC,Urine Occasional #/hpf (0-3)
== END ==
PROVIDERS: Visit Provider Internal Medicine Nephrology
DX: R80.9 Proteinuria, unspecified (principal); E55.9 Vitamin D deficiency, unspecified
CPT/HCPCS: 36415; 80069; 81001; 82306; 82570; 83970; 84155; 85025; 87086

== ENCOUNTER 2020-10-03 08:52 | Outpatient (CLI) | payer MEDICARE, OTHER, SELFPAY ==
[2020-10-03 09:18] VITALS: BP 144/70; PULSE 81; RESP 18; TEMP 36.4
== END 2020-10-03 09:18 | disposition home or self-care (01) ==
LOC: INF 08:52
PROVIDERS: Visit Provider Allergy & Immunology
DX: J45.998 Other asthma (principal)
CPT/HCPCS: 96372; J2357

== ENCOUNTER → 2020-10-06 13:20 | Outpatient (POV) | payer MEDICARE, OTHER, SELFPAY | PROVIDERS: Visit Provider Internal Medicine Nephrology | DX: Z00.00 Encounter for general adult medical examination without abnormal findings (principal) ==

== ENCOUNTER 2020-10-23 09:33 | Outpatient (CLI) | payer MEDICARE, OTHER, SELFPAY ==
[2020-10-23 09:45] VITALS: BP 142/78; PULSE 78; RESP 20; TEMP 36.9; O2SAT 95
--- NOTE | 2020-10-23 10:00 | PC.NURSE ---
given injections in both arms
== END 2020-10-23 10:00 | disposition home or self-care (01) ==
LOC: INF 09:33
PROVIDERS: Visit Provider Allergy & Immunology
DX: J45.998 Other asthma (principal)
CPT/HCPCS: 96372; J2357

== ENCOUNTER 2020-11-07 08:53 | Outpatient (CLI) | payer MEDICARE, OTHER, SELFPAY ==
[2020-11-07 09:06] VITALS: BP 137/86; PULSE 80; RESP 18; TEMP 36.6; O2SAT 97
== END 2020-11-07 09:20 | disposition home or self-care (01) ==
LOC: INF 08:53
PROVIDERS: Visit Provider Allergy & Immunology
DX: J45.40 Moderate persistent asthma, uncomplicated (principal)
CPT/HCPCS: 96372; J2357

== ENCOUNTER 2020-11-20 08:56 | Outpatient (CLI) | payer MEDICARE, OTHER, SELFPAY ==
[2020-11-20 09:15] VITALS: BP 139/72; PULSE 74; RESP 18; TEMP 36.6; O2SAT 100
== END 2020-11-20 09:30 | disposition home or self-care (01) ==
LOC: INF 08:56
PROVIDERS: Visit Provider Allergy & Immunology
DX: J45.40 Moderate persistent asthma, uncomplicated (principal)
CPT/HCPCS: 96372; J2357

== ENCOUNTER 2020-12-05 09:48 | Outpatient (CLI) | payer MEDICARE, OTHER, SELFPAY ==
[2020-12-05 10:05] VITALS: BP 155/86; PULSE 70; RESP 18; TEMP 36.4; O2SAT 98
== END 2020-12-05 10:20 | disposition home or self-care (01) ==
LOC: INF 09:48
PROVIDERS: Visit Provider Nurse Practitioner
DX: J45.40 Moderate persistent asthma, uncomplicated (principal)
CPT/HCPCS: 96372; J2357

== ENCOUNTER 2020-12-19 09:40 | Outpatient (CLI) | payer MEDICARE, OTHER, SELFPAY ==
[2020-12-19 09:49] VITALS: BP 165/94; PULSE 78; RESP 17; TEMP 36.8; O2SAT 97
== END 2020-12-19 10:14 | disposition home or self-care (01) ==
LOC: INF 09:47
PROVIDERS: Visit Provider Allergy & Immunology
DX: J45.40 Moderate persistent asthma, uncomplicated (principal)
CPT/HCPCS: 96372; J2357

== ENCOUNTER 2021-01-02 08:51 | Outpatient (CLI) | payer MEDICARE, OTHER, SELFPAY ==
[2021-01-02 09:20] VITALS: BP 141/68; PULSE 84; RESP 17; TEMP 36.8; O2SAT 95
[2021-01-02 09:25] VITALS: BP 141/68; PULSE 84; RESP 17; TEMP 36.8; O2SAT 95
== END 2021-01-02 09:27 | disposition home or self-care (01) ==
LOC: INF 08:51
PROVIDERS: Visit Provider Allergy & Immunology
DX: J45.40 Moderate persistent asthma, uncomplicated (principal)
CPT/HCPCS: 96372; J2357

== ENCOUNTER 2021-01-16 08:36 | Outpatient (CLI) | payer MEDICARE, OTHER, SELFPAY ==
[2021-01-16 08:46] VITALS: BP 146/78; PULSE 82; RESP 20; TEMP 36.9; O2SAT 94
[2021-01-16 09:10] VITALS: BP 151/79; PULSE 84; RESP 17; TEMP 36.9; O2SAT 96
== END 2021-01-16 09:12 | disposition home or self-care (01) ==
LOC: INF 08:36
PROVIDERS: Visit Provider Allergy & Immunology
DX: J45.40 Moderate persistent asthma, uncomplicated (principal)
CPT/HCPCS: 96372; J2357

== ENCOUNTER 2021-01-30 09:05 | Outpatient (CLI) | payer MEDICARE, OTHER, SELFPAY ==
[2021-01-30 08:55] VITALS: BP 166/76; PULSE 79; RESP 20; TEMP 36.9; O2SAT 95
== END 2021-01-30 09:30 | disposition home or self-care (01) ==
LOC: INF 09:21
PROVIDERS: Visit Provider Allergy & Immunology
DX: J45.40 Moderate persistent asthma, uncomplicated (principal)
CPT/HCPCS: 96372; J2357

== ENCOUNTER 2021-02-12 08:59 | Outpatient (CLI) | payer MEDICARE, OTHER, SELFPAY ==
[2021-02-12 09:24] VITALS: BP 160/85; PULSE 68; RESP 20; TEMP 36.9; O2SAT 95
--- NOTE | 2021-02-12 09:27 | PC.NURSE ---
injections given in each arm
== END 2021-02-12 09:28 | disposition home or self-care (01) ==
LOC: INF 08:59
PROVIDERS: Visit Provider Nurse Practitioner
DX: J45.40 Moderate persistent asthma, uncomplicated (principal)
CPT/HCPCS: 96372; J2357

== ENCOUNTER 2021-02-27 08:59 | Outpatient (CLI) | payer MEDICARE, OTHER, SELFPAY ==
[2021-02-27 09:20] VITALS: BP 147/80; PULSE 79; RESP 18; TEMP 36.7; O2SAT 97
== END 2021-02-27 09:30 | disposition home or self-care (01) ==
LOC: INF 08:59
PROVIDERS: Visit Provider Nurse Practitioner
DX: J45.40 Moderate persistent asthma, uncomplicated (principal)
CPT/HCPCS: 96372

== ENCOUNTER 2021-04-03 08:57 | Outpatient (CLI) | payer MEDICARE, OTHER, SELFPAY ==
[2021-04-03 08:57] VITALS: BP 156/74; PULSE 85; RESP 20; TEMP 36.9; O2SAT 95
[2021-04-03 10:20] VITALS: BP 155/74; PULSE 68; RESP 20; TEMP 36.9; O2SAT 95
== END 2021-04-03 09:15 | disposition home or self-care (01) ==
LOC: INF 08:57
PROVIDERS: Visit Provider Allergy & Immunology
DX: J45.40 Moderate persistent asthma, uncomplicated (principal)
CPT/HCPCS: 96372; J2357

== ENCOUNTER 2021-04-20 08:53 | Outpatient (CLI) | payer MEDICARE, OTHER, SELFPAY ==
--- NOTE | 2021-04-20 09:30 | PC.NURSE ---
given in both arms
[2021-04-20 09:35] VITALS: BP 133/74; PULSE 76; RESP 18; TEMP 36.6; O2SAT 96
== END 2021-04-20 09:55 | disposition home or self-care (01) ==
PROVIDERS: PCP Family Medicine; Visit Provider Allergy & Immunology
DX: J45.40 Moderate persistent asthma, uncomplicated (principal)
CPT/HCPCS: 96372; J2357

== ENCOUNTER 2021-05-01 08:45 | Outpatient (CLI) | payer MEDICARE, OTHER, SELFPAY ==
[2021-05-01 09:32] VITALS: BP 149/80; PULSE 76; RESP 17; TEMP 36.6; O2SAT 96
== END 2021-05-01 09:36 | disposition home or self-care (01) ==
LOC: INF 08:47
PROVIDERS: PCP Family Medicine; Visit Provider Allergy & Immunology
DX: J45.40 Moderate persistent asthma, uncomplicated (principal)
CPT/HCPCS: 96372; J2357

== ENCOUNTER 2021-05-15 08:48 | Outpatient (CLI) | payer MEDICARE, OTHER, SELFPAY ==
[2021-05-15 09:26] VITALS: BP 147/82; PULSE 82; RESP 17; TEMP 36.4; O2SAT 96
== END 2021-05-15 09:30 | disposition home or self-care (01) ==
LOC: INF 08:50
PROVIDERS: PCP Family Medicine; Visit Provider Allergy & Immunology
DX: J45.40 Moderate persistent asthma, uncomplicated (principal)
CPT/HCPCS: 96372; J2357

== ENCOUNTER → 2021-05-20 11:21 | Outpatient (CLI) | payer MEDICARE, OTHER, SELFPAY ==
--- NOTE | 2021-05-20 11:26 | XR_ITS ---
PROCEDURE: XR KNEE LT 3V CLINICAL INDICATION: LT KNEE PAIN COMPARISON: CR KNEE3L KNEE-3 VIEWS-LT from 12/27/2013 CR KNEE3R KNEE-3 VIEWS-RT from 12/27/2013 FINDINGS: No fracture or dislocation. No lytic or blastic change. There is normal mineralization. The may be a small suprapatellar effusion. Generalized vascular calcification is present. Minimal osteoarthritic changes are present at the medial compartment and patellofemoral joint. The upper shaft of the fibula is bowed medially. This is of uncertain etiology. Tib fib films may provide further evaluation. Please correlate with history of remote trauma Other findings:None. IMPRESSION: No acute finding. Mild osteoarthritic change with possible small knee joint effusion. Bowing of the fibular shaft medially of unknown clinical significance Dictated by: Moises Perkins MD 05/20/2021 11:52 Moises Perkins MD in [place] 05/20/2021 11:52
== END ==
PROVIDERS: PCP Family Medicine; Visit Provider Family Medicine
DX: M25.562 Pain in left knee (principal)
CPT/HCPCS: 73562

== ENCOUNTER 2021-05-29 11:15 | Outpatient (CLI) | payer MEDICARE, OTHER, SELFPAY ==
[2021-05-29 12:35] VITALS: BP 154/75; PULSE 89; RESP 17; TEMP 36.3; O2SAT 98
== END 2021-05-29 12:37 | disposition home or self-care (01) ==
LOC: INF 11:16
PROVIDERS: PCP Family Medicine; Visit Provider Allergy & Immunology
DX: J45.40 Moderate persistent asthma, uncomplicated (principal)
CPT/HCPCS: 96372; J2357

== ENCOUNTER 2021-06-12 08:41 | Outpatient (CLI) | payer MEDICARE, OTHER, SELFPAY ==
[2021-06-12 09:08] VITALS: BP 158/97; PULSE 88; RESP 18; TEMP 36.4; O2SAT 96
== END 2021-06-12 09:20 | disposition home or self-care (01) ==
LOC: INF 08:42
PROVIDERS: PCP Family Medicine; Visit Provider Allergy & Immunology
DX: J45.40 Moderate persistent asthma, uncomplicated (principal)
CPT/HCPCS: 96372; J2357

== ENCOUNTER 2021-06-26 09:30 | Outpatient (CLI) | payer MEDICARE, OTHER, SELFPAY ==
[2021-06-26 10:00] VITALS: BP 139/84; PULSE 87; RESP 18; TEMP 36.5; O2SAT 94
== END 2021-06-26 10:15 | disposition home or self-care (01) ==
LOC: INF 09:31
PROVIDERS: PCP Family Medicine; Visit Provider Allergy & Immunology
DX: J45.40 Moderate persistent asthma, uncomplicated (principal)
CPT/HCPCS: 96372; J2357

== ENCOUNTER 2021-07-10 08:56 | Outpatient (CLI) | payer MEDICARE, OTHER, SELFPAY ==
[2021-07-10 09:45] VITALS: BP 165/82; PULSE 85; RESP 17; TEMP 36.5; O2SAT 96
== END 2021-07-10 09:46 | disposition home or self-care (01) ==
LOC: INF 08:57
PROVIDERS: PCP Family Medicine; Visit Provider Nurse Practitioner
DX: J45.40 Moderate persistent asthma, uncomplicated (principal)
CPT/HCPCS: 96372; J2357

== ENCOUNTER 2021-07-27 09:11 | Outpatient (CLI) | payer MEDICARE, OTHER, SELFPAY ==
--- NOTE | 2021-07-27 09:44 | PC.NURSE ---
bilateral injections in arm
[2021-07-27 09:55] VITALS: BP 168/75; PULSE 83; RESP 20; TEMP 36.3; O2SAT 95
== END 2021-07-27 09:55 | disposition home or self-care (01) ==
LOC: INF 09:12
PROVIDERS: PCP Family Medicine; Visit Provider Allergy & Immunology
DX: J45.40 Moderate persistent asthma, uncomplicated (principal)
CPT/HCPCS: 96372; J2357

== ENCOUNTER 2021-08-07 08:57 | Outpatient (CLI) | payer MEDICARE, OTHER, SELFPAY ==
[2021-08-07 09:32] VITALS: BP 150/77; PULSE 84; RESP 18; TEMP 36.1; O2SAT 95
== END 2021-08-07 09:45 | disposition home or self-care (01) ==
LOC: INF 08:58
PROVIDERS: PCP Family Medicine; Visit Provider Allergy & Immunology
DX: J45.40 Moderate persistent asthma, uncomplicated (principal)
CPT/HCPCS: 96372; J2357

== ENCOUNTER → 2021-08-24 10:35 | Outpatient (CLI) | payer MEDICARE, OTHER, SELFPAY ==
[2021-08-24 10:38] VITALS: BP 150/78; PULSE 88; RESP 16; TEMP 36.6; O2SAT 100
== END ==
PROVIDERS: PCP Family Medicine; Visit Provider Allergy & Immunology
DX: J45.40 Moderate persistent asthma, uncomplicated (principal)
CPT/HCPCS: 96372; J2357

== ENCOUNTER → 2021-09-09 12:56 | Outpatient (CLI) | payer MEDICARE, OTHER, SELFPAY | PROVIDERS: PCP Family Medicine; Visit Provider Urology | DX: R97.20 Elevated prostate specific antigen [PSA] (principal); Z01.812 Encounter for preprocedural laboratory examination; Z11.52 Encounter for screening for COVID-19 | CPT/HCPCS: C9803; U0003; U0005 ==

== ENCOUNTER → 2021-09-10 13:42 | Outpatient (CLI) | payer MEDICARE, OTHER, SELFPAY ==
--- NOTE | 2021-09-10 13:56 | CT_ITS ---
FINAL REPORT CLINICAL HISTORY: bph/incomplete bladder empty FINDINGS: Axial CT images of the abdomen and pelvis were obtained without intravenous contrast. Coronal reformatted images were also obtained.This study was performed with techniques to keep radiation doses as low as reasonably achievable (ALARA). Individualized dose reduction techniques using automated exposure control or adjustment of mA and/or kV according to the patient's size were employed. Abdomen: There is mild scarring in the lung bases. There is scarring in the lower pole of the left kidney. There are 2 small posterior right renal masses with the largest measuring 13 mm. They cannot be accurately characterized without contrast but favor cysts. The liver, spleen and pancreas have an unremarkable, unenhanced appearance. No inflammatory process is identified. There is a small umbilical hernia containing fat. Pelvis: Images of the pelvis reveal no evidence of ureteral dilation or ureteral stone. The urinary bladder is lobular and significantly distended. Could be due to bladder outlet obstruction. The prostate is moderately enlarged. The appendix is normal. No abnormal fluid collection is identified. There are small bilateral inguinal hernias containing fat. There is a chronic calcification anterior to the right hip. IMPRESSION: Moderately enlarged prostate. Two small right renal masses as described. If indicated a renal mass protocol CT may be helpful. Reviewed, Interpreted and Dictated by Jordan Layton III, MD Transcribed by Ana Bey Authenticated by Jordan Layton III, MD on 09/10/2021 03:51:17 PM [facility]
== END ==
PROVIDERS: PCP Family Medicine; Visit Provider Urology
DX: N40.1 Benign prostatic hyperplasia with lower urinary tract symptoms (principal); R33.9 Retention of urine, unspecified
CPT/HCPCS: 74176

== ENCOUNTER 2021-09-11 08:05 | Day surgery (SDC) | payer MEDICARE, OTHER, SELFPAY ==
[2021-09-11 08:18] VITALS: BMI 38.8
[2021-09-11 08:20] VITALS: BP 166/82; PULSE 91; RESP 18; TEMP 36.9; O2SAT 97
[2021-09-11 09:45] VITALS: BP 150/96; PULSE 86; RESP 18; TEMP 36.6; O2SAT 97
[2021-09-11 10:00] VITALS: BP 150/96; PULSE 86; RESP 18; TEMP 36.6; O2SAT 97
--- NOTE | 2021-09-11 10:07 | US_ITS ---
FINAL REPORT TECHNIQUE: Ultrasound images of the kidneys and bladder were obtained. CLINICAL HISTORY: cyst vs mass on right kidney seen on recent CT FINDINGS: The right kidney measures 12.8 cm in length. There is no hydronephrosis. There are 2 small renal masses measuring 1.4 cm and 1.2 cm which are likely small cysts. There is no hydronephrosis. The left kidney measures 10.6 cm in length. It is normal in echogenicity. There is no hydronephrosis. The urinary bladder is unremarkable. IMPRESSION: 2 small right renal masses, likely small cysts. No hydronephrosis. Reviewed, Interpreted and Dictated by Jordan Layton III, MD Transcribed by Ana Bey Authenticated by Jordan Layton III, MD on 09/11/2021 12:01:58 PM [facility]
--- NOTE | 2021-09-11 11:30 | HMH.OPNOTE ---
Date of procedure: 09/11/21 Pre-op Diagnosis:: BPH, incomplete bladder emptying, Post-op Diagnosis:: BPH with incomplete bladder emptying Procedure performed:: Cystoscopy Surgeon:: Flex Hutchinson MD Anesthesia: local Estimated blood loss (mL): 0 Clinical Note:: 75-year-old white male referred for lower urinary tract symptoms. Bladder scan in the office showed a residual of [address] scan and cystoscopy were recommended. His CT shows a couple of small right-sided renal masses for which further evaluation is recommended. He presents for cystoscopy today. Operative findings:: Patient with trilobar hyperplasia but no evidence of a median lobe. There is severe trabeculation of the bladder base and a high capacity bladder. Operative note:: Patient taken to the cystoscopy suite after informed consent was obtained. On the stretcher he was prepped and draped in the standard surgical fashion and 2% lidocaine placed into the urethra and clamped. After 5 minutes the flexible cystoscope introduced into the urethral meatus. Passed to the prostatic urethra where there was bilobar hyperplasia present. The bladder was entered and examined in a systematic fashion. There is noted to be of high capacity and there was severe trabeculation along the bladder base. Ureteral orifices were in their normal anatomic position with clear efflux of urine. They were well away from the bladder neck. Retroflexion of the scope showed no evidence of a median lobe. The scope removed and patient tolerated the procedure well. We discussed the findings today which include BPH with possible bladder decompensation. We briefly discussed UroLift implant which may help with emptying but is not guaranteed. I am going to send him for renal ultrasound today to follow-up on the 2 small right renal masses noted on the CT scan and we will see him back next week for discussion of the ultrasound and UroLift. Condition: stable Disposition: same day Specimens:: None Complications:: None
[2022-05-27 10:56] LABS: POC Glucose,Bedside 202 (70-110)
== END 2021-09-11 10:00 | disposition home or self-care (01) ==
LOC: OUTP 08:06
PROVIDERS: PCP Family Medicine; Visit Provider Urology
DX: N40.1 Benign prostatic hyperplasia with lower urinary tract symptoms (principal); N13.8 Other obstructive and reflux uropathy; R97.20 Elevated prostate specific antigen [PSA]; N28.89 Other specified disorders of kidney and ureter; J45.909 Unspecified asthma, uncomplicated; E11.9 Type 2 diabetes mellitus without complications; E78.5 Hyperlipidemia, unspecified; I10 Essential (primary) hypertension; Z88.1 Allergy status to other antibiotic agents; Z79.84 Long term (current) use of oral hypoglycemic drugs; Z79.899 Other long term (current) drug therapy
CPT/HCPCS: 52000; 76770; 82962

== ENCOUNTER 2021-09-14 09:22 | Outpatient (CLI) | payer MEDICARE, OTHER, SELFPAY ==
[2021-09-14 09:49] VITALS: BP 164/79; PULSE 79; RESP 18; TEMP 36.5; O2SAT 96
== END 2021-09-14 10:10 | disposition home or self-care (01) ==
LOC: INF 09:23
PROVIDERS: PCP Family Medicine; Visit Provider Allergy & Immunology
DX: J45.40 Moderate persistent asthma, uncomplicated (principal)
CPT/HCPCS: 96372; J2357

== ENCOUNTER 2021-09-25 08:34 | Outpatient (CLI) | payer MEDICARE, OTHER, SELFPAY ==
[2021-09-25 09:00] VITALS: BP 125/82; PULSE 77; RESP 18; TEMP 36.2; O2SAT 99
== END 2021-09-25 09:15 | disposition home or self-care (01) ==
LOC: INF 08:35
PROVIDERS: PCP Family Medicine; Visit Provider Allergy & Immunology
DX: J45.40 Moderate persistent asthma, uncomplicated (principal)
CPT/HCPCS: 96372; J2357

== ENCOUNTER 2021-10-09 08:55 | Outpatient (CLI) | payer MEDICARE, OTHER, SELFPAY ==
[2021-10-09 09:15] VITALS: BP 157/97; PULSE 89; RESP 20; TEMP 36.4; O2SAT 95
== END 2021-10-09 09:15 | disposition home or self-care (01) ==
LOC: INF 08:57
PROVIDERS: PCP Family Medicine; Visit Provider Allergy & Immunology
DX: J45.40 Moderate persistent asthma, uncomplicated (principal)
CPT/HCPCS: 96372; J2357

== ENCOUNTER → 2021-10-14 09:26 | Outpatient (CLI) | payer MEDICARE, OTHER, SELFPAY | PROVIDERS: PCP Family Medicine; Visit Provider Urology | DX: N40.0 Benign prostatic hyperplasia without lower urinary tract symptoms (principal); Z01.812 Encounter for preprocedural laboratory examination; Z11.52 Encounter for screening for COVID-19 | CPT/HCPCS: C9803; U0003; U0005 ==

== ENCOUNTER 2021-10-16 08:31 | Day surgery (SDC) | payer MEDICARE, OTHER, SELFPAY ==
[2021-10-13 16:36] VITALS: BMI 39.1
[2021-10-16] VITALS (13 sets, daily range): BP systolic 111–171; BP diastolic 62–90; PULSE 69–89; RESP 14–20; TEMP 36.2–37.3; O2SAT 93–96
--- NOTE | 2021-10-16 09:50 | HMH.ANESCL ---
[facility] Anesthesia Checklist - Patient Identification Patient Identification: Arm Band - Structural Data Admitted From: Home Planned Operative Procedure/s: Urolift Consent for Planned Operative Procedure(s) Verified: Yes - NPO Status Verified Time NPO: 00:00 - Additional verifications Anesthesia Reactions: No Hx Blood Transfusions: No Blood Transfusion Reaction: No - Airway Assessment C-Spine Mobility Assessed: Yes TMJ Mobility Assessed: Yes Dentition: Edentulous - Neurological Assessment Level of Consciousness: Awake Hx Seizures: No Numbness or tingling in extremities: No - Anesthesia Plan Anesthesia Risk discussed: Yes Anesthesia Plan: Verified ASA Class: III Anesthesia Type: General [facility] History I have reviewed the patient's past medical history: Yes Medical History: Reports:: Asthma, Diabetes Mellitus Type 2, Hyperlipidemia, Hypertension Denies:: Cancer, Diabetes Mellitus Type 1, Internal Pacemaker, MRSA, Seizures *Have you ever received a pneumonia vaccine?: Yes *Have you received a flu vaccine this season?: Yes Other Medical History: Reports: Cataracts, Glaucoma. Denies: Blood Transfusion Reaction Anesthesia experience/problems:: None Other Surgeries: Yes: No Previous Surgery, Colonoscopy, EGD, Other. No: Pacemaker Amputation: No Fractures: No - *Social History Last grade of school completed: High school graduate Smoking Status: Never smoker Tobacco Type: pipe # Packs/Day (cigarettes): 0 Alcohol Intake: never Alcohol Intake Frequency:: holidays/special occasions only Substance Use Type: denies use *Occupational Status:: employed Housing: house Household Members: significant other *Travel in the last 8 weeks: None Family Hx:: Diabetes
--- NOTE | 2021-10-16 11:00 | P.PN_ITS ---
[facility] Anesthesia Record Part I Intake, IV Amount: 250 Estimated blood loss (mL): 0 Urine output (mL): 0 Blood Pressure: 111/62 SaO2: 93 Pulse Rate: 70 Respiratory Rate: 14 Temperature: 97.1 F Patient is:: Drowsy, Oral/Nasal airway Stable to PACU at:: 11:00
[2021-10-16 11:10] LABS: POC Glucose,Bedside 148 (70-110)
--- NOTE | 2021-10-16 11:33 | SUR.PHASEI ---
1129- detailed report called to nigel patton in post op.
--- NOTE | 2021-10-16 15:22 | HMH.OPNOTE ---
Date of procedure: 10/16/21 Pre-op Diagnosis:: BPH with obstruction Post-op Diagnosis:: BPH with obstruction Procedure performed:: Urolift x 6 implants Surgeon:: Flex Hutchinson MD SUPERVISOR BLASTING:: Maryjo Arambula Anesthesia: LMA Estimated blood loss (mL): 5 Clinical Note:: 75-year-old white male with history of diabetes has BPH with urinary obstruction. Previous cystoscopy has shown evidence of a high capacity bladder and by lobar hyperplasia. He presents for UroLift procedure today. We have discussed that he may have a decompensated bladder and may continue to have incomplete bladder emptying even after relief of the prostatic obstruction. Operative findings:: Large capacity bladder/by lobar hyperplasia Operative note:: Patient taken to the operating room after informed consent was obtained. Placed on the operating table in the supine position and general anesthesia administered. Preoperative antibiotics and sequential compression devices placed. He was then placed into the dorsal lithotomy position and prepped and draped in the standard surgical fashion. A 22 Reji passed into the urethra and into the bladder without difficulty. The bladder was examined in a systematic fashion. Again it was noted to be of high capacity. There were no cellules, diverticula. Mild to moderate trabeculation was noted. Ureteral orifices were in their normal anatomic position and well away from the bladder neck. There is no evidence of a median lobe. There was bilobar hyperplasia and a rather elongated prostatic urethra. The first Urolift implant was loaded onto the lens and placed back through the sheath. The first implant was placed on the patient's right side about 2 cm from the bladder neck and the anterior aspect of the urethra. A second implant was then loaded and placed in the corresponding position on the patient's left side and the anterior tissue. A third implant was then loaded and placed into the mid prostate anteriorly. Fourth implant was placed in the likewise position on the patient's left side. We then evaluated the prostatic urethra for possible fifth and sixth implant as it was quite long. The distal prostatic urethra appeared open but the more proximal prostatic urethra still appeared to have some obstructing tissue a little lower than the previously placed implants so 1/5 implant was loaded and placed in the patient's right side compressing the tissue near the bladder neck distally and firing the implant. The likewise procedure was done on the patient's left side. After these 2 were placed the prostatic urethra appeared to be open and there was a very nice result noted. Little bit of bleeding was noted from an implant site so the bladder was irrigated and a 22 Cymraes two-way catheter placed and 10 cc placed into the balloon into dependent drainage. Patient tolerated the procedure well no complications. Condition: stable Disposition: PACU Specimens:: None Complications:: None
--- NOTE | 2021-10-20 07:21 | P.PN_ITS ---
[facility] Anesthesia Record Part II Discharge Time: 11:30 Destination: Surgical Day Care (OP Surgery) PACU nurse assessment reviewed?: Yes Patient Condition:: Good Anesthesia Complications:: None Swallowing reflex intact?: Yes Cyanosis?: No Blood Pressure: 128/76 Pulse Rate: 72 Temperature: 97.3 F Mental Status: Alert & Oriented Pain level:: 0 Nausea and/or vomitting:: None Intake, IV Amount: 0
[2021-10-20 07:23] VITALS: BP 128/76; PULSE 72; TEMP 36.3
[2022-05-27 10:57] LABS: POC Glucose,Bedside 149 (70-110)
== END 2021-10-16 13:33 | disposition home or self-care (01) ==
LOC: OR 08:33
PROVIDERS: PCP Family Medicine; Visit Provider Urology
DX: N40.1 Benign prostatic hyperplasia with lower urinary tract symptoms (principal); R33.9 Retention of urine, unspecified; R97.20 Elevated prostate specific antigen [PSA]; N28.1 Cyst of kidney, acquired; J45.909 Unspecified asthma, uncomplicated; E11.9 Type 2 diabetes mellitus without complications; E78.5 Hyperlipidemia, unspecified; I10 Essential (primary) hypertension; Z83.3 Family history of diabetes mellitus; Z88.1 Allergy status to other antibiotic agents; Z79.899 Other long term (current) drug therapy
CPT/HCPCS: C9740; 82962; 96374; L8699

== ENCOUNTER 2021-10-23 09:35 | Outpatient (CLI) | payer MEDICARE, OTHER, SELFPAY ==
[2021-10-23 09:45] VITALS: BP 156/84; PULSE 78; RESP 18; TEMP 36.1; O2SAT 97
== END 2021-10-23 10:00 | disposition home or self-care (01) ==
LOC: INF 09:36
PROVIDERS: Visit Provider Nurse Practitioner
DX: J45.40 Moderate persistent asthma, uncomplicated (principal)
CPT/HCPCS: 96372; J2357

== ENCOUNTER → 2021-11-27 09:21 | Outpatient (CLI) | payer MEDICARE, OTHER, SELFPAY ==
[2021-11-27 09:29] LABS: Microscopic, Urine URINE MICROSCOPIC (MICROSCOPIC)
[2021-11-27 09:49] LABS: Basophils # 0.1 K/mm3 (0-0.2); Basophils % 1.2 % (0.1-2.0); Eosinophils # 0.2 K/mm3 (0.0-0.4); Eosinophils % 3.8 % (0.1-12.0); Hematocrit 43.9 % (42.0-52.0); Hemoglobin 14.8 g/dL (14.1-18.0); Lymphocytes # 1.6 K/mm3 (0.7-4.5); Lymphocytes % 28.1 % (10-50); Mean Corpuscular HGB Conc 33.7 g/dL (31.8-35.4); Mean Corpuscular Hemoglobin 30.3 pg (27.0-31.2); Mean Corpuscular Volume 89.9 fl (80-94); Mean Platelet Volume 8.2 fl (7.4-10.4); Monocytes # 0.3 K/mm3 (0.1-1.0); Monocytes % 4.5 % (1.7-9.3); Neutrophils # 3.6 K/mm3 (1.8-7.8); Neutrophils % 62.3 % (37.0-80.0); Platelet Count 248 K/mm3 (142-424); Red Blood Count 4.89 M/mm3 (4.60-6.20); Red Cell Distribution Width 14.3 % (11.5-17.5); White Blood Count 5.8 K/mm3 (4.8-10.8)
[2021-11-27 10:33] LABS: Albumin Level 4.4 g/dl (3.5-5.0); Blood Urea Nitrogen 13 mg/dl (9-20); Calcium 9.4 mg/dl (8.4-10.2); Carbon Dioxide 23 mmol/L (22.0-30.0); Chloride 104 mmol/L (98-107); Estimated Glomerular Filt Rate 95 ml/min (>60); GFR (African American) 115 ML/MIN (>60); Glucose 193 mg/dl (74-100); Phosphorous 3.6 mg/dl (2.5-4.5); Sodium 139 mmol/L (136-145)
[2021-11-27 10:43] LABS: Appearance,Urine CLEAR (Clear); Bilirubin,Urine Negative (Negative); Blood, Urine Negative (Negative); Color,Urine YELLOW (Yellow); Glucose,Urine (UA) Negative (Negative); Ketones,Urine Negative (Negative); Leukocyte Esterase,Urine Negative (Negative); Nitrate,Urine Negative (Negative); PH,Urine 6.5 (5.0-8.5); Protein,Urine 1+ (Negative); Specific Gravity, Urine 1.015 (1.005-1.030); Urobilinogen,Urine 0.2 EU/dl (0.2)
[2021-11-27 10:44] LABS: Intact Parathyroid Hormone 52.2 pg/mL (7.5-53.5)
[2021-11-27 10:51] LABS: Creatinine,Urine Random 59 mg/dL (Not Estab.)
== END ==
PROVIDERS: PCP Family Medicine; Visit Provider Internal Medicine Nephrology
DX: N18.2 Chronic kidney disease, stage 2 (mild) (principal); E55.9 Vitamin D deficiency, unspecified
CPT/HCPCS: 36415; 80069; 81001; 82306; 82570; 83970; 84155; 85025

== ENCOUNTER → 2021-12-03 14:00 | Outpatient (POV) | payer MEDICARE, OTHER, SELFPAY | PROVIDERS: Visit Provider Internal Medicine Nephrology | DX: Z00.00 Encounter for general adult medical examination without abnormal findings (principal) ==

== ENCOUNTER → 2022-05-04 09:32 | Outpatient (CLI) | payer MEDICARE, OTHER, SELFPAY ==
--- NOTE | 2022-05-04 13:01 | US_ITS ---
FINAL REPORT TECHNIQUE: Sonographic images were obtained of the retroperitoneum. CLINICAL HISTORY: renal cyst COMPARISON: September 11, 2021 FINDINGS: The right kidney measures 10.9 cm. The left kidney is somewhat small and measures 8.0 cm. There are 2 anechoic structures in the right kidney measuring 1.9 cm consistent with cysts. These are somewhat larger as compared to the prior exam. The spleen measures 10.6 cm. There is a presumed small amount of left perinephric fluid that is nonspecific. IMPRESSION: Right renal cysts. Small amount of nonspecific left perinephric fluid. Reviewed, Interpreted and Dictated by Jordan Layton III, MD Transcribed by Mark Dacosta Authenticated and [facility]
[2022-05-05 08:56] LABS: PSA, Free 0.55 ng/mL; Prostate Specific Ag 2.7 ng/mL (0.0-4.0)
== END ==
PROVIDERS: PCP Family Medicine; Visit Provider Urology
DX: R97.20 Elevated prostate specific antigen [PSA] (principal); N28.1 Cyst of kidney, acquired
CPT/HCPCS: 36415; 76770; 84153; 84154

== ENCOUNTER → 2022-11-29 08:14 | Outpatient (CLI) | payer MEDICARE, SELFPAY ==
[2022-11-29 08:29] LABS: Microscopic, Urine URINE MICROSCOPIC (MICROSCOPIC)
[2022-11-29 09:19] LABS: Appearance,Urine CLOUDY (Clear); Bilirubin,Urine Negative (Negative); Blood, Urine Negative (Negative); Color,Urine YELLOW (Yellow); Glucose,Urine (UA) Negative (Negative); Ketones,Urine Negative (Negative); Leukocyte Esterase,Urine 1+ (Negative); Nitrate,Urine Negative (Negative); Protein,Urine TRACE (Negative); Specific Gravity, Urine 1.025 (1.005-1.030); Urobilinogen,Urine 0.2 EU/dl (0.2)
[2022-11-29 09:30] LABS: Creatinine,Urine Random 231 mg/dL (Not Estab.)
[2022-11-29 09:31] LABS: Microalbumin/Creatinine Ratio 29.5
[2022-11-29 09:32] LABS: Basophils # 0.1 K/mm3 (0-0.2); Basophils % 1.2 % (0.1-2.0); Eosinophils # 0.2 K/mm3 (0.0-0.4); Eosinophils % 2.9 % (0.1-12.0); Hematocrit 44.5 % (42.0-52.0); Hemoglobin 14.4 g/dL (14.1-18.0); Lymphocytes # 2.4 K/mm3 (0.7-4.5); Lymphocytes % 30.4 % (10-50); Mean Corpuscular HGB Conc 32.3 g/dL (31.8-35.4); Mean Corpuscular Hemoglobin 28.7 pg (27.0-31.2); Mean Platelet Volume 7.7 fl (7.4-10.4); Monocytes # 0.4 K/mm3 (0.1-1.0); Neutrophils # 4.7 K/mm3 (1.8-7.8); Neutrophils % 60.4 % (37.0-80.0); Platelet Count 282 K/mm3 (142-424); Red Cell Distribution Width 14.6 % (11.5-17.5); White Blood Count 7.7 K/mm3 (4.8-10.8)
[2022-11-29 09:36] LABS: Bacteria,Urine 4+ /lpf; RBC,Urine Occasional #/hpf (0-3); Squamous Epithelial Cell,Urine Occasional #/hpf (0-5)
[2022-11-29 10:12] LABS: Albumin Level 4.4 g/dl (3.5-5.0); Anion Gap 14.1 mEq/L (5-15); Blood Urea Nitrogen 30 mg/dl (9-20); Calcium 9.4 mg/dl (8.4-10.2); Carbon Dioxide 27 mmol/L (22.0-30.0); Chloride 102 mmol/L (98-107); Estimated Glomerular Filt Rate 65 ml/min (>60); GFR (African American) 79 ML/MIN (>60); Glucose 135 mg/dl (74-100); Phosphorous 4.1 mg/dl (2.5-4.5); Potassium 4.1 mmoL/L (3.5-5.1); Sodium 139 mmol/L (136-145)
[2022-11-29 10:25] LABS: Intact Parathyroid Hormone 53.9 pg/mL (7.5-53.5)
[2022-11-29 10:31] LABS: 25-OH Vitamin D, Total 19.8 ng/mL (30-100)
== END ==
PROVIDERS: PCP Family Medicine; Visit Provider Internal Medicine Nephrology
DX: R80.1 Persistent proteinuria, unspecified (principal); N18.2 Chronic kidney disease, stage 2 (mild); E55.9 Vitamin D deficiency, unspecified; B96.89 Other specified bacterial agents as the cause of diseases classified elsewhere
CPT/HCPCS: 36415; 80069; 81001; 82043; 82306; 82570; 83970; 84155; 85025; 87086; 87088; 87186

== ENCOUNTER → 2022-12-02 12:34 | Outpatient (POV) | payer MEDICARE, SELFPAY | PROVIDERS: Visit Provider Internal Medicine Nephrology | DX: Z00.00 Encounter for general adult medical examination without abnormal findings (principal) ==

== ENCOUNTER 2023-11-24 08:55 | Outpatient (CLI) | payer MEDICARE, SELFPAY ==
[2023-11-24 09:04] LABS: Microscopic, Urine URINE MICROSCOPIC (MICROSCOPIC)
[2023-11-24 09:23] LABS: Hemoglobin 14.7 g/dL (14.1-18.0); Mean Corpuscular HGB Conc 33.4 g/dL (31.8-35.4); Mean Corpuscular Hemoglobin 30.6 pg (27.0-31.2); Mean Corpuscular Volume 91.7 fl (80-94); Platelet Count 251 K/mm3 (142-424); Red Cell Distribution Width 14.3 % (11.5-17.5); White Blood Count 8.4 K/mm3 (4.8-10.8)
[2023-11-24 09:34] LABS: Appearance,Urine CLEAR (Clear); Bilirubin,Urine Negative (Negative); Blood, Urine TRACE-I (Negative); Color,Urine YELLOW (Yellow); Glucose,Urine (UA) Negative (Negative); Ketones,Urine Negative (Negative); Leukocyte Esterase,Urine 1+ (Negative); Nitrate,Urine POSITIVE (Negative); Protein,Urine TRACE (Negative); Specific Gravity, Urine 1.025 (1.005-1.030); Urobilinogen,Urine 0.2 EU/dl (0.2)
[2023-11-24 10:27] LABS: Albumin Level 4.3 g/dl (3.5-5.0); Anion Gap 12.5 mEq/L (5-15); Blood Urea Nitrogen 24 mg/dl (9-20); Calcium 9.6 mg/dl (8.4-10.2); Carbon Dioxide 25 mmol/L (22.0-30.0); Chloride 105 mmol/L (98-107); Estimated Glomerular Filt Rate 82 ml/min (>60); GFR (African American) 100 ML/MIN (>60); Glucose 212 mg/dl (74-100); Phosphorous 4.1 mg/dl (2.5-4.5); Potassium 4.5 mmoL/L (3.5-5.1); Sodium 138 mmol/L (136-145)
[2023-11-24 10:36] LABS: Intact Parathyroid Hormone 64.7 pg/mL (7.5-53.5)
[2023-11-24 10:42] LABS: 25-OH Vitamin D, Total 21.1 ng/mL (30-100)
[2023-11-24 10:56] LABS: Bacteria,Urine 4+ /lpf; RBC,Urine Occasional #/hpf (0-3); Squamous Epithelial Cell,Urine Occasional #/hpf (0-5)
== END 2023-11-24 23:59 ==
LOC: LAB 08:56
PROVIDERS: PCP Family Medicine; Visit Provider Internal Medicine Nephrology
DX: N18.2 Chronic kidney disease, stage 2 (mild) (principal); E55.9 Vitamin D deficiency, unspecified; R80.9 Proteinuria, unspecified; Z79.899 Other long term (current) drug therapy; B96.29 Other Escherichia coli [E. coli] as the cause of diseases classified elsewhere
CPT/HCPCS: 36415; 80069; 81001; 82306; 83970; 85014; 85018; 85048; 85049; 87086

== ENCOUNTER 2023-11-25 16:08 | Outpatient (CLI) | payer MEDICARE, SELFPAY ==
[2023-11-25 18:09] LABS: Creatinine,Urine Random 62 mg/dL (Not Estab.)
== END 2023-11-25 23:59 ==
LOC: LAB 16:09
PROVIDERS: PCP Family Medicine; Visit Provider Internal Medicine Nephrology
DX: R80.9 Proteinuria, unspecified (principal); N18.2 Chronic kidney disease, stage 2 (mild); E55.9 Vitamin D deficiency, unspecified
CPT/HCPCS: 82570; 84156

== ENCOUNTER 2023-11-28 13:02 | Outpatient (POV) | payer MEDICARE, SELFPAY | END 2023-11-28 23:59 | disposition home or self-care (01) | LOC: SC 13:02 | PROVIDERS: Visit Provider Internal Medicine Nephrology | DX: Z00.00 Encounter for general adult medical examination without abnormal findings (principal) ==

== ENCOUNTER 2024-03-28 07:46 | Outpatient (CLI) | payer MEDICARE, SELFPAY ==
--- NOTE | 2024-03-28 07:50 | US_ITS ---
FINAL REPORT CLINICAL HISTORY: ABN LFT S COMPARISON: None FINDINGS: Sonographic images of the right upper quadrant were obtained. The pancreas is partially obscured. There is a 1 cm anechoic focus in the region of the head of the pancreas, which appears separate from the common bile duct.The liver has an unremarkable appearance.The gallbladder appears normal, other than a small septation, without evidence of gallstones.There is no evidence of biliary ductal dilatation.The common duct measures 3 mm. There is a 2.2 cm hypoechoic right renal cyst present, without evidence of hydronephrosis. IMPRESSION: 1 cm anechoic focus in the region of the head of the pancreas, would recommend CT with contrast for further evaluation. 2.2 cm hypoechoic right renal cyst. Reviewed, Interpreted and Dictated by Rubio Kim MD Transcribed by Ayaka Peace Authenticated and [facility]
== END 2024-03-28 23:59 | disposition home or self-care (01) ==
PROVIDERS: PCP Physician Assistant; Visit Provider Physician Assistant
DX: R79.89 Other specified abnormal findings of blood chemistry (principal)
CPT/HCPCS: 76705

== ENCOUNTER 2024-04-04 08:16 | Outpatient (CLI) | payer MEDICARE, SELFPAY ==
--- NOTE | 2024-04-04 08:28 | CT_ITS ---
FINAL REPORT CLINICAL HISTORY: ABN US, AREA SEEN ON PANCREAS COMPARISON: Ultrasound 03/28/2024 FINDINGS: CT OF THE ABDOMEN AND PELVIS WITH CONTRAST Axial CT images of the abdomen and pelvis were obtained after the administration of IV contrast. Coronal reformatted images were also obtained and reviewed. This study was performed with techniques to keep radiation doses as low as reasonably achievable (ALARA). Individualized dose reduction techniques using automated exposure control or adjustment of mA and/or kV according to the patient's size were employed. Abdomen: There is mild atelectasis or scarring in the lung bases. The heart is normal in size. The liver has an unremarkable appearance, without evidence of mass or biliary ductal dilatation. There is mild gallbladder wall thickening. The spleen is unremarkable. No adrenal mass is present. There is a 7 mm low-attenuation mass in the anterior pancreatic neck. Differential diagnosis includes cystic neoplasm or cyst. There are 2 small cysts in the posterior right kidney. No follow-up is recommended. There is moderate left renal scarring. The aorta is normal in caliber. There is no free fluid or adenopathy. There is a small umbilical hernia containing fat. Pelvis: The appendix is not well-visualized. Multiple colonic diverticula are noted. Bladder wall thickening is likely inflammatory. The prostate is diffusely enlarged with prostate seed implants. There is a small inguinal hernia containing fat. There is no evidence of mass or adenopathy. There is no evidence of bowel obstruction. IMPRESSION: 7 mm anterior pancreatic neck mass, cyst versus cystic neoplasm. Further evaluation with follow-up pancreatic protocol CT in 12 months or abdominal MRI recommended. Reviewed, Interpreted and Dictated by Jordan Layton III, MD Transcribed by Betsy Bowling Authenticated and [facility]
[2024-04-04] MEDS: IOPAMIDOL-370 (76%);100ML BOTTLE 75 ML IV (09:12)
[2024-04-04] MEDS: SODIUM CHLORIDE 0.9% 10ML SYR (RAD ONLY) 10 ML IV (09:12)
== END 2024-04-04 23:59 | disposition home or self-care (01) ==
LOC: RAD 08:16
PROVIDERS: PCP Family Medicine; Visit Provider Family Medicine
DX: R93.5 Abnormal findings on diagnostic imaging of other abdominal regions, including retroperitoneum (principal)
CPT/HCPCS: 74177; Q9967

== ENCOUNTER 2024-05-11 12:01 | Outpatient (CLI) | payer MEDICARE, SELFPAY ==
--- NOTE | 2024-05-11 12:09 | XR_ITS ---
FINAL REPORT CLINICAL HISTORY: WEAKNESS, pain COMPARISON: None FINDINGS: LEFT HIP: Two views of the left hip demonstrate no acute fracture or dislocation. Mild degenerative change of the left hip is present. The visualized bony structures are well aligned. Vascular calcifications are noted. Postoperative changes are present in the lower pelvis. IMPRESSION: Mild degenerative change of the left hip without acute bony abnormality. Reviewed, Interpreted and Dictated by Jordan Layton III, MD Transcribed by Ayaka Peace Authenticated and [facility]
--- NOTE | 2024-05-11 12:09 | XR_ITS ---
FINAL REPORT CLINICAL HISTORY: .weakness, pain COMPARISON: None FINDINGS: RIGHT HIP Two views of the right hip demonstrate no acute fracture or dislocation. Mild degenerative changes are present. The visualized bony structures are well aligned. Postoperative changes are noted in the lower pelvis. Vascular calcifications are present. IMPRESSION: Mild degenerative change of the right hip, without acute bony abnormality. Reviewed, Interpreted and Dictated by Jordan Layton III, MD Transcribed by Ayaka Peace Authenticated and [facility]
--- NOTE | 2024-05-11 12:09 | XR_ITS ---
FINAL REPORT CLINICAL HISTORY: .weakness, pain COMPARISON: None FINDINGS: 5 views of the lumbar spine were obtained. There is no evidence of fracture or dislocation. The vertebral alignment is normal. Mild and moderate degenerative changes present with multilevel osteophytes. Bilateral SI joint degenerative changes are present. Moderate vascular calcifications are noted. IMPRESSION: Mild and moderate degenerative changes are present with multilevel osteophytes. Bilateral SI joint degenerative changes are present as well. Reviewed, Interpreted and Dictated by Jordan Layton III, MD Transcribed by Ayaka Peace Authenticated and [facility]
== END 2024-05-11 23:59 | disposition home or self-care (01) ==
LOC: RAD 12:04
PROVIDERS: PCP Family Medicine; Visit Provider Physician Assistant
DX: R29.898 Other symptoms and signs involving the musculoskeletal system (principal); R29.6 Repeated falls
CPT/HCPCS: 72110; 73502

== ENCOUNTER 2024-05-16 14:55 | Outpatient (CLI) | payer MEDICARE, SELFPAY ==
[2024-05-16 16:08] LABS: Amylase 62 U/L (30-110)
[2024-05-16 16:10] LABS: Alanine Aminotransferase 186 U/L (12-78); Albumin Level 4.3 g/dl (3.5-5.0); Albumin/Globulin Ratio 1.3 (1.1-1.8); Alkaline Phosphatase 66 U/L (38-126); Aspartate Amino Transferase 160 U/L (17-59); Bilirubin,Total 0.6 mg/dl (0.2-1.3); Blood Urea Nitrogen 22 mg/dl (9-20); Calcium 9.8 mg/dl (8.4-10.2); Carbon Dioxide 28 mmol/L (22.0-30.0); Chloride 106 mmol/L (98-107); Estimated Glomerular Filt Rate 82 ml/min (>60); GFR (African American) 99 ML/MIN (>60); Globulin 3.3 g/dL (1.3-3.2); Glucose 53 mg/dl (74-100); Lipase 83 U/L (23-300); Sodium 142 mmol/L (136-145); Total Protein,Serum 7.6 g/dl (6.3-8.2)
[2024-05-18 11:32] LABS: CA 19-9 7 U/mL (0-35)
== END 2024-05-16 23:59 | disposition home or self-care (01) ==
LOC: LAB 15:14
PROVIDERS: PCP Family Medicine; Visit Provider Internal Medicine Gastroenterology
DX: K86.89 Other specified diseases of pancreas (principal); K86.2 Cyst of pancreas; R93.89 Abnormal findings on diagnostic imaging of other specified body structures; D37.8 Neoplasm of uncertain behavior of other specified digestive organs; E11.9 Type 2 diabetes mellitus without complications
CPT/HCPCS: 36415; 80053; 82150; 82656; 83690; 86301

== ENCOUNTER 2024-05-18 10:16 | Outpatient (CLI) | payer MEDICARE, SELFPAY ==
[2024-05-22 03:37] LABS: Pancreatic Elastase, Fecal >800 (>200)
== END 2024-05-18 23:59 | disposition home or self-care (01) ==
LOC: LAB 10:17
PROVIDERS: PCP Family Medicine; Visit Provider Internal Medicine Gastroenterology
DX: K86.89 Other specified diseases of pancreas (principal)
CPT/HCPCS: 82656

== ENCOUNTER 2024-05-25 08:15 | Outpatient (CLI) | payer MEDICARE, SELFPAY ==
[2024-05-25 09:16] LABS: Albumin Level 4.2 g/dl (3.5-5.0)
[2024-05-25 09:19] LABS: Alanine Aminotransferase 122 U/L (12-78); Alkaline Phosphatase 61 U/L (38-126); Aspartate Amino Transferase 89 U/L (17-59); Bilirubin,Direct 0.2 mg/dl (0.0-0.4); Bilirubin,Indirect 0.6 mg/dL (0.0-0.9); Bilirubin,Total 0.8 mg/dl (0.2-1.3); Bilirubin,Unconjugated 0.6 mg/dL (0.0-1.1); Total Protein,Serum 7.2 g/dl (6.3-8.2)
[2024-05-25 09:20] LABS: Iron 94 ug/dL (49-181)
[2024-05-25 09:29] LABS: Total Iron Binding Capacity 291 ug/dL (261-462)
[2024-05-25 09:55] LABS: Ferritin 57.3 ng/ml (17.9-464)
[2024-05-26 07:12] LABS: HCV Ab Non Reactive (Non Reactive); Hep Be Ag Negative (Negative); Hepatitis Be Antibody Non Reactive (Negative)
[2024-05-26 08:17] LABS: CA 19-9 8 U/mL (0-35)
[2024-05-26 10:11] LABS: Immunoglobulin G, Qn 1347 mg/dL (603-1613)
[2024-05-26 15:10] LABS: Actin (Smooth Muscle) Antibody 20 Units (0-19)
[2024-05-28 13:13] LABS: Anti-Centromere B Antibodies <0.2 AI (0.0-0.9); Anti-DNA (DS) Ab Qn 1 IU/mL (0-9); Anti-Jo-1 <0.2 AI (0.0-0.9); Anti-Smith Antibody <0.2 AI (0.0-0.9); Antichromatin Antibodies <0.2 AI (0.0-0.9); Antiscleroderma-70 Antibodies <0.2 AI (0.0-0.9); RNP Antibodies <0.2 AI (0.0-0.9); Sjogren's Anti-SS-A <0.2 AI (0.0-0.9); Sjogren's Anti-SS-B <0.2 AI (0.0-0.9)
[2024-05-29 06:20] LABS: Immunoglobulin A, Qn 253 mg/dL (61-437); Immunoglobulin M, Qn 45 mg/dL (15-143)
[2024-05-30 02:10] LABS: ALT (SGPT) P5P 113 IU/L (0-55); Alpha 2-Macroglobulins, Qn 208 mg/dL (110-276); Apolipoprotein A-1 138 mg/dL (101-178); Bilirubin, Total 0.2 mg/dL (0.0-1.2); GGT 22 IU/L (0-65); Haptoglobin 185 mg/dL (34-355); Necroinflammat Activity Grade A2-Moderate activity (.); Necroinflammat Activity Score 0.58 (0.00-0.17)
== END 2024-05-25 23:59 | disposition home or self-care (01) ==
LOC: LAB 08:17
PROVIDERS: PCP Family Medicine; Visit Provider Internal Medicine Gastroenterology
DX: D64.9 Anemia, unspecified (principal); K86.9 Disease of pancreas, unspecified; K86.2 Cyst of pancreas; R74.8 Abnormal levels of other serum enzymes; K75.4 Autoimmune hepatitis; K86.89 Other specified diseases of pancreas; R93.89 Abnormal findings on diagnostic imaging of other specified body structures
CPT/HCPCS: 36415; 80076; 81517; 82728; 82784; 83540; 83550; 86225; 86235; 86255; 86301; 86707; 86803; 87350

== ENCOUNTER 2024-06-28 08:14 | Outpatient (CLI) | payer MEDICARE, SELFPAY ==
[2024-06-28 09:07] LABS: Alanine Aminotransferase 98 U/L (12-78); Albumin Level 4.1 g/dl (3.5-5.0); Albumin/Globulin Ratio 1.5 (1.1-1.8); Alkaline Phosphatase 66 U/L (38-126); Anion Gap 12.1 mEq/L (5-15); Aspartate Amino Transferase 94 U/L (17-59); Bilirubin,Direct 0.2 mg/dl (0.0-0.4); Bilirubin,Total 0.7 mg/dl (0.2-1.3); Blood Urea Nitrogen 19 mg/dl (9-20); Calcium 9.8 mg/dl (8.4-10.2); Carbon Dioxide 26 mmol/L (22.0-30.0); Chloride 104 mmol/L (98-107); Estimated Glomerular Filt Rate 94 ml/min (>60); GFR (African American) 114 ML/MIN (>60); Globulin 2.8 g/dL (1.3-3.2); Glucose 134 mg/dl (74-100); Potassium 4.1 mmoL/L (3.5-5.1); Sodium 138 mmol/L (136-145); Total Protein,Serum 6.9 g/dl (6.3-8.2)
== END 2024-06-28 23:59 | disposition home or self-care (01) ==
PROVIDERS: PCP Family Medicine; Visit Provider Internal Medicine Gastroenterology
DX: R93.89 Abnormal findings on diagnostic imaging of other specified body structures (principal); K86.9 Disease of pancreas, unspecified
CPT/HCPCS: 80053; 82248

== ENCOUNTER 2024-08-17 08:30 | Outpatient (CLI) | payer MEDICARE, SELFPAY ==
[2024-08-17 09:21] LABS: Chloride 104 mmol/L (98-107)
[2024-08-17 09:22] LABS: Albumin Level 4.2 g/dl (3.5-5.0); Potassium 3.7 mmoL/L (3.5-5.1); Sodium 133 mmol/L (136-145)
[2024-08-17 09:24] LABS: Blood Urea Nitrogen 17 mg/dl (9-20); Estimated Glomerular Filt Rate 94 ml/min (>60); GFR (African American) 114 ML/MIN (>60)
[2024-08-17 09:25] LABS: Alanine Aminotransferase 63 U/L (12-78); Albumin/Globulin Ratio 1.4 (1.1-1.8); Alkaline Phosphatase 85 U/L (38-126); Anion Gap 5.7 mEq/L (5-15); Aspartate Amino Transferase 50 U/L (17-59); Bilirubin,Total 0.9 mg/dl (0.2-1.3); Calcium 9.7 mg/dl (8.4-10.2); Carbon Dioxide 27 mmol/L (22.0-30.0); Globulin 2.9 g/dL (1.3-3.2); Glucose 123 mg/dl (74-100); Total Protein,Serum 7.1 g/dl (6.3-8.2)
[2024-08-21 03:36] LABS: ALT (SGPT) P5P 62 IU/L (0-55); AST (SGOT) P5P 42 IU/L (0-40); Alpha 2-Macroglobulins, Qn 201 mg/dL (110-276); Apolipoprotein A-1 164 mg/dL (101-178); Bilirubin, Total 0.4 mg/dL (0.0-1.2); Cholesterol, Total 269 mg/dL (100-199); Fibrosis Score 0.28 (0.00-0.21); GGT 36 IU/L (0-65); Glucose 130 mg/dL (70-99); Haptoglobin 174 mg/dL (34-355); NASH Score 0.81 (0.00-0.25); Steatosis Score 0.79 (0.00-0.40); Triglycerides 304 mg/dL (0-149)
== END 2024-08-17 23:59 | disposition home or self-care (01) ==
LOC: LAB 08:32
PROVIDERS: PCP Family Medicine; Visit Provider Nurse Practitioner Family
DX: K75.4 Autoimmune hepatitis (principal)
CPT/HCPCS: 36415; 80053

== ENCOUNTER 2024-10-04 09:46 | Outpatient (CLI) | payer MEDICARE, SELFPAY ==
[2024-10-04 10:34] LABS: Alanine Aminotransferase 39 U/L (12-78); Albumin Level 4.4 g/dl (3.5-5.0); Albumin/Globulin Ratio 1.8 (1.1-1.8); Alkaline Phosphatase 85 U/L (38-126); Anion Gap 13.7 mEq/L (5-15); Aspartate Amino Transferase 36 U/L (17-59); Bilirubin,Total 0.4 mg/dl (0.2-1.3); Blood Urea Nitrogen 20 mg/dl (9-20); Carbon Dioxide 28 mmol/L (22.0-30.0); Chloride 99 mmol/L (98-107); Estimated Glomerular Filt Rate 94 ml/min (>60); GFR (African American) 114 ML/MIN (>60); Globulin 2.5 g/dL (1.3-3.2); Glucose 153 mg/dl (74-100); Potassium 3.7 mmoL/L (3.5-5.1); Sodium 137 mmol/L (136-145); Total Protein,Serum 6.9 g/dl (6.3-8.2)
== END 2024-10-04 23:59 | disposition home or self-care (01) ==
LOC: LAB 09:47
PROVIDERS: PCP Family Medicine; Visit Provider Nurse Practitioner Family
DX: K75.4 Autoimmune hepatitis (principal)
CPT/HCPCS: 36415; 80053

== ENCOUNTER 2024-10-16 07:38 | Outpatient (CLI) | payer MEDICARE, SELFPAY ==
--- NOTE | 2024-10-16 07:52 | CA_ITS ---
APPROVED REPORT EXAM: Comprehensive 2D, Doppler, and color-flow Echocardiogram Acute Dialysis Registered Nurse: JAGDISH Ponce, RVS Ht: 5 ft 7 in Wt: 228lbs BSA: 2.14 BP: 132/84 mmHg Indications: Edema, HTN, Pre-diabetic, HLD Echo Enhancing Agent Comments: Poor acoustics due to body habitus, Lung impedance 2D Dimensions Left Atrium 3.97 cm M: 3.0 - 4.0 LA Volume 84.40 mL LA Volume Index [id number] mL/m2 (M/F) 16-34 M-Mode Dimensions RVDd 2.85 cm (0.9-2.6) LA Diam 3.96 cm (1.9-4.0) LVDd 5.02 cm (3.5-5.7) LVDs 3.58 cm (3.5-5.7) IVSd 1.29 cm (0.6-1.1) PWd 1.00 cm (0.6-1.1) EF (Teich) 55.00% EPSs 0.77 cm FS 28.70% EDV (Teich) 119.30 mL TAPSE 2.51 (<1.7) ESV (Teich) 53.70 mL LV Diastology E Decel Time 262 (160-240 msec) E/A Ratio 0.96 MED A' 12.00 cm/s LAT A' 12.30 cm/s Aortic Valve [place] Index 1.51 cm2/m2 AoV Peak Jaquan. 140.0 (50-130 cm/s) AO Peak GR. 7.90 mmHg AO Mean GR. 3.90 (<5 mmHg) AO VTI 23.4 (18-25 cm) [place] (VTI) 3.31 (2.5-4.5 cm2) Mitral Valve MV A Velocity 67.0 (40-130 cm/s) E/A Ratio 0.96 Pulmonary Valve PV Peak Velocity 109.0 (50-150 cm/s) Left Ventricle The left ventricle is normal size. The left ventricular systolic function is normal. The left ventricular ejection fraction is within the normal range. There is increased LV wall thickness. There is normal LV segmental wall motion. Transmitral Doppler flow pattern suggests impaired LV relaxation. LVEF 60%. Right Ventricle Right ventricle is mildly dilated. The right ventricular systolic function is normal. Atria The left atrium size is normal. The right atrium size is normal. There is no Doppler evidence of interatrial shunt. Aortic Valve Aortic valve is mildly thickened. There is no aortic valvular stenosis. No aortic regurgitation is present. Mitral Valve The mitral valve is normal in structure. No evidence of mitral valve stenosis. Trace mitral regurgitation. Tricuspid Valve Tricuspid valve is grossly normal in structure and function. Trace tricuspid regurgitation. There is insufficient TR jet to estimate RVSP. Pulmonic Valve The pulmonary valve is normal in structure. Trace pulmonic regurgitation. Great Vessels The aortic root is normal in size. IVC is normal in size and collapses >50% with inspiration. Pericardium Trivial, anterior pericardial effusion is present. No echo indications of tamponade. Other Information Study Quality: Fair Conclusion Normal biventricular systolic function. Mild RV dilation. No significant valvular stenosis or regurgitation. Trivial, anterior pericardial effusion is present. No echo indications of tamponade. Electronically signed by : Aye Rangel MD 10/25/2024 13:22:46
== END 2024-10-16 23:59 | disposition home or self-care (01) ==
LOC: RT 07:40
PROVIDERS: PCP Family Medicine; Visit Provider Nurse Practitioner Family
DX: I51.7 Cardiomegaly (principal); R60.9 Edema, unspecified; R73.03 Prediabetes; E78.49 Other hyperlipidemia; R74.8 Abnormal levels of other serum enzymes
CPT/HCPCS: 93306

== ENCOUNTER 2024-11-02 08:20 | Outpatient (CLI) | payer MEDICARE, SELFPAY ==
[2024-11-02 09:55] LABS: Albumin Level 4.2 g/dl (3.5-5.0)
[2024-11-02 09:58] LABS: Alanine Aminotransferase 28 U/L (12-78); Alkaline Phosphatase 107 U/L (38-126); Aspartate Amino Transferase 25 U/L (17-59); Bilirubin,Direct 0.4 mg/dl (0.0-0.4); Bilirubin,Indirect 0.4 mg/dL (0.0-0.9); Bilirubin,Total 0.8 mg/dl (0.2-1.3); Bilirubin,Unconjugated 0.4 mg/dL (0.0-1.1); Chol/HDL Ratio 3.6 (1-3.5); Cholesterol 188 mg/dl (140-200); HDL Cholesterol 52 mg/dl (40-60); Total Protein,Serum 6.9 g/dl (6.3-8.2); Triglycerides 128 mg/dl (30-150); VLDL Cholesterol 26 mg/dL (0-40)
[2024-11-02 10:09] LABS: Direct LDL Cholesterol 100.46 mg/dL (100-129)
== END 2024-11-02 23:59 | disposition home or self-care (01) ==
LOC: LAB 08:21
PROVIDERS: PCP Family Medicine; Visit Provider Nurse Practitioner Family
DX: I11.9 Hypertensive heart disease without heart failure (principal); E78.49 Other hyperlipidemia; R74.8 Abnormal levels of other serum enzymes
CPT/HCPCS: 36415; 80061; 80076

== ENCOUNTER 2024-12-10 08:38 | Outpatient (CLI) | payer MEDICARE, SELFPAY ==
--- OUTSIDE RECORDS SUMMARY | 2024-12-10 08:41 | XMS_ITS ---
Author Organization Unknown Medications Date Medication Dosage DosageUnit StartDate StopDate StopReason Active DoseQuantity DoseUnit Dispense DispenseUnit Refills NdcCode DrugCode PharmacyId IsPrescription MappedMedication Srcstatus 12/03 00:00 :00 ALBUTEROL 0.083% 1 90 2 [id number] 052 P Taking 11/03 00:00 :00 ALBUTEROL 0.083% 1 90 2 [id number] 052 P Taking 08/10 00:00 :00 ALBUTEROL 0.083% 1 90 2 [id number] 052 P Taking 07/19 00:00 :00 ALBUTEROL 0.083% 1 90 2 [id number] 052 P Unknown Status 07/14 00:00 :00 ALBUTEROL 0.083% 1 90 2 [id number] 052 Start 07/14 00:00 :00 ALBUTEROL 0.083% 0 90 2 [id number] 052 Stop 07/13 00:00 :00 ALBUTEROL 0.083% 1 90 2 [id number] 052 P Unknown Status 07/01 00:00 :00 ALBUTEROL 0.083% 1 90 2 [id number] 052 Start 07/01 00:00 :00 ALBUTEROL 0.083% 0 90 2 [id number] 052 Stop 07/01 00:00 :00 ALBUTEROL 0.083% 1 90 2 [id number] 052 P Taking 03/18 00:00 :00 ALBUTEROL 0.083% 1 90 2 [id number] 052 P Taking 03/17 00:00 :00 ALBUTEROL 0.083% 1 90 2 [id number] 052 P Unknown Status 01/27 00:00 :00 ALBUTEROL 0.083% 1 90 2 [id number] 052 P Unknown Status 01/27 00:00 :00 ALBUTEROL 0.083% 1 90 2 [id number] 052 Taking 01/26 00:00 :00 ALBUTEROL 0.083% 1 90 2 [id number] 052 Start 01/26 00:00 :00 ALBUTEROL 0.083% 0 90 2 [id number] 052 Stop 01/23 00:00 :00 ALBUTEROL 0.083% 1 90 2 [id number] 052 P Unknown Status 01/22 00:00 :00 ALBUTEROL 0.083% 1 90 2 [id number] 052 Start 01/22 00:00 :00 ALBUTEROL 0.083% 0 90 5 [id number] 052 Stop 01/01 00:00 :00 ALBUTEROL 0.083% 1 90 5 [id number] 052 Taking 12/11 00:00 :00 ALBUTEROL 0.083% 1 90 5 [id number] 052 Taking 11/27 00:00 :00 Albuterol Sulfate 0.083% 0 90 2 P Not T aking 09/19 00:00 :00 Albuterol Sulfate 0.083% 1 90 2 P Takin g 06/01 00:00 :00 Albuterol Sulfate 0.083% 1 90 2 P Takin g 05/18 00:00 :00 Albuterol Sulfate 0.083% 1 90 2 P Takin g 05/15 00:00 :00 Albuterol Sulfate 0.083% 1 90 2 P Takin g 05/11 00:00 :00 Albuterol Sulfate 0.083% 1 90 2 P Takin g 03/21 00:00 :00 Albuterol Sulfate 0.083% 1 90 2 P Takin g 12/07 00:00 :00 Albuterol Sulfate 0.083% 1 90 2 P Takin g 06/09 00:00 :00 Albuterol Sulfate 0.083% 1 90 2 P Takin g 05/31 00:00 :00 Albuterol Sulfate 0.083% 1 90 2 P Takin g 03/09 00:00 :00 Albuterol Sulfate 0.083% 1 90 2 P Takin g 01/29 00:00 :00 Albuterol Sulfate 0.083% 1 90 2 P Takin g 11/27 00:00 :00 Allopurinol 100 MG Tablet 1 180 Tablet 2 [id number] 701 Taking 09/19 00:00 :00 Allopurinol 100 MG Tablet 1 180 Tablet 2 [id number] 701 Taking 06/01 00:00 :00 Allopurinol 100 MG Tablet 1 180 Tablet 2 [id number] 701 Taking 05/18 00:00 :00 Allopurinol 100 MG Tablet 1 180 Tablet 2 [id number] 701 Taking 05/15 00:00 :00 Allopurinol 100 MG Tablet 1 180 Tablet 2 [id number] 701 Taking 05/11 00:00 :00 Allopurinol 100 MG Tablet 1 180 Tablet 2 [id number] 701 Taking 03/21 00:00 :00 Allopurinol 100 MG Tablet 1 180 Tablet 2 [id number] 701 Taking 12/07 00:00 :00 Allopurinol 100 MG Tablet 1 180 Tablet 2 [id number] 701 Taking 06/09 00:00 :00 Allopurinol 100 MG Tablet 1 180 Tablet 2 71335310 701 Taking 05/31 00:00 :00 Allopurinol 100 MG Tablet 1 180 Tablet 2 52189117 701 Taking 03/09 00:00 :00 Allopurinol 100 MG Tablet 1 180 Tablet 2 50837281 701 Taking 01/29 00:00 :00 Allopurinol 100 MG Tablet 1 180 Tablet 2 24788516 701 Taking 12/03 00:00 :00 ALLOPURINOL 100 mg tablet 1 180 Tablet 2 [id number] 107 Taking 11/03 00:00 :00 ALLOPURINOL 100 mg tablet 1 180 Tablet 2 [id number] 107 Taking 08/10 00:00 :00 ALLOPURINOL 100 mg tablet 1 180 Tablet 2 [id number] 107 Taking 07/01 00:00 :00 ALLOPURINOL 100 mg tablet 1 180 Tablet 2 [id number] 107 Taking 03/18 00:00 :00 ALLOPURINOL 100 mg tablet 1 180 Tablet 2 [id number] 107 Taking 01/27 00:00 :00 ALLOPURINOL 100 mg tablet 1 180 Tablet 2 [id number] 107 Taking 01/01 00:00 :00 ALLOPURINOL 100 mg tablet 1 180 Tablet 2 [id number] 107 Taking 12/11 00:00 :00 ALLOPURINOL 100 mg tablet 1 180 Tablet 2 [id number] 107 Taking 11/27 00:00 :00 amLODIPine Besylate 5 MG Tablet 1 90 Tablet 1 [id number] 705 P Taking 10/08 00:00 :00 amLODIPine Besylate 5 MG Tablet 1 90 Tablet 1 [id number] 705 P Unknown Status 10/08 00:00 :00 amLODIPine Besylate 5 MG Tablet 1 90 Tablet 0 [id number] 705 Start 10/08 00:00 :00 amLODIPine Besylate 5 MG Tablet 0 90 Tablet 1 [id number] 705 Stop 09/19 00:00 :00 amLODIPine Besylate 5 MG Tablet 1 90 Tablet 1 [id number] 705 Taking 06/01 00:00 :00 amLODIPine Besylate 5 MG Tablet 1 90 Tablet 1 [id number] 705 Taking 05/18 00:00 :00 amLODIPine Besylate 5 MG Tablet 1 90 Tablet 1 [id number] 705 Taking 05/15 00:00 :00 amLODIPine Besylate 5 MG Tablet 1 90 Tablet 1 [id number] 705 Taking 05/11 00:00 :00 amLODIPine Besylate 5 MG Tablet 1 90 Tablet 1 [id number] 705 Taking 04/17 00:00 :00 amLODIPine Besylate 5 MG Tablet 1 90 Tablet 1 [id number] 705 Start 04/17 00:00 :00 amLODIPine Besylate 5 MG Tablet 0 90 2 0048 0716 710 Stop 03/21 00:00 :00 amLODIPine Besylate 5 MG Tablet 1 90 2 0048 0716 710 Taking 12/07 00:00 :00 amLODIPine Besylate 5 MG Tablet 1 90 2 0048 0716 710 Taking 07/15 00:00 :00 amLODIPine Besylate 5 MG Tablet 1 90 2 0048 0716 710 Start 07/15 00:00 :00 amLODIPine Besylate 5 MG Tablet 0 90 2 0048 0716 710 Stop 06/09 00:00 :00 amLODIPine Besylate 5 MG Tablet 1 90 2 0048 0716 710 Taking 05/31 00:00 :00 amLODIPine Besylate 5 MG Tablet 1 90 2 0048 0716 710 Taking 03/09 00:00 :00 amLODIPine Besylate 5 MG Tablet 1 90 2 0048 0716 710 Taking 01/29 00:00 :00 amLODIPine Besylate 5 MG Tablet 1 90 2 0048 0716 710 Start 12/31 00:00 :00 AMLODIPINE BESYLATE 5MG tablet 1 90 2 6787 7019 805 Start 12/31 00:00 :00 AMLODIPINE BESYLATE 5MG tablet 0 90 2 6787 7019 805 Stop 12/03 00:00 :00 AMLODIPINE BESYLATE 5MG tablet 1 90 2 6787 7019 805 Taking 11/03 00:00 :00 AMLODIPINE BESYLATE 5MG tablet 1 90 2 6787 7019 805 Taking 08/10 00:00 :00 AMLODIPINE BESYLATE 5MG tablet 1 90 2 6787 7019 805 Taking 07/01 00:00 :00 AMLODIPINE BESYLATE 5MG tablet 1 90 2 6787 7019 805 Taking 06/18 00:00 :00 AMLODIPINE BESYLATE 5MG tablet 1 90 2 6787 7019 805 Start 06/18 00:00 :00 AMLODIPINE BESYLATE 5MG tablet 0 6787 7019 805 Stop 03/18 00:00 :00 AMLODIPINE BESYLATE 5MG tablet 1 6787 7019 805 P Taking 01/27 00:00 :00 AMLODIPINE BESYLATE 5MG tablet 1 6787 7019 805 P Continue 01/27 00:00 :00 AMLODIPINE BESYLATE 5MG tablet 1 6787 7019 805 P Taking 01/01 00:00 :00 AMLODIPINE BESYLATE 5MG tablet 1 6787 7019 805 P Decrease 01/01 00:00 :00 AMLODIPINE BESYLATE 5MG tablet 1 90 2 6787 7019 805 Taking 12/22 00:00 :00 AMLODIPINE BESYLATE 5MG tablet 1 90 2 6787 7019 805 Start 12/22 00:00 :00 AMLODIPINE BESYLATE 5MG tablet 0 90 1 6787 7019 805 Stop 12/11 00:00 :00 AMLODIPINE BESYLATE 5MG tablet 1 6787 7019 805 Increase 12/11 00:00 :00 AMLODIPINE BESYLATE 5MG tablet 1 90 1 6787 7019 805 Taking 05/15 00:00 :00 Azelastine HCl 0.15 % Solution 12/03/2022 00:00:00 1 1 5 [id number] 2 683 P Taking 05/11 00:00 :00 Azelastine HCl 0.15 % Solution 12/03/2022 00:00:00 1 1 5 [id number] 2 683 P Taking 03/21 00:00 :00 Azelastine HCl 0.15 % Solution 12/03/2022 00:00:00 1 1 5 [id number] 2 683 P Taking 12/07 00:00 :00 Azelastine HCl 0.15 % Solution 12/03/2022 00:00:00 1 1 5 [id number] 2 683 P Taking 06/09 00:00 :00 Azelastine HCl 0.15 % Solution 12/03/2022 00:00:00 1 1 5 [id number] 2 683 P Taking 05/31 00:00 :00 Azelastine HCl 0.15 % Solution 12/03/2022 00:00:00 1 1 5 [id number] 2 683 P Taking 03/09 00:00 :00 Azelastine HCl 0.15 % Solution 12/03/2022 00:00:00 1 1 5 [id number] 2 683 P Taking 01/29 00:00 :00 Azelastine HCl 0.15 % Solution 12/03/2022 00:00:00 1 1 5 [id number] 2 683 P Start 12/03 00:00 :00 AZELASTINE NASAL 205.5 mcg/inh spray 12/03/2022 00:00:00 1 1 5 [id number] 0 684 P Start 06/09 00:00 :00 Bactrim DS 800-160 MG Tablet 03/18/2022 00:00:00 0 20 Tablet 0 05270 014 601 P Not Taking 05/31 00:00 :00 Bactrim DS 800-160 MG Tablet 03/09/2023 00:00:00 1 20 Tablet 0 24615 014 601 P Taking 05/31 00:00 :00 Bactrim DS 800-160 MG Tablet 03/18/2022 00:00:00 0 20 Tablet 0 10064 014 601 P Not Taking 03/09 00:00 :00 Bactrim DS 800-160 MG Tablet 03/09/2023 00:00:00 1 20 Tablet 0 02674 014 601 P Start 03/09 00:00 :00 Bactrim DS 800-160 MG Tablet 03/18/2022 00:00:00 0 20 Tablet 0 19982 014 601 P Not Taking 01/29 00:00 :00 Bactrim DS 800-160 MG Tablet 03/18/2022 00:00:00 0 20 Tablet 0 97565 014 601 P Not Taking 12/03 00:00 :00 BACTRIM DS 800 mg-160 mg tablet 03/18/2022 00:00:00 0 20 Tablet 0 68340 064 990 P Not Taking 11/03 00:00 :00 BACTRIM DS 800 mg-160 mg tablet 03/18/2022 00:00:00 0 20 Tablet 0 62165 064 990 P Not Taking 08/10 00:00 :00 BACTRIM DS 800 mg-160 mg tablet 03/18/2022 00:00:00 0 20 Tablet 0 00326 064 990 P Not Taking 07/01 00:00 :00 BACTRIM DS 800 mg-160 mg tablet 03/18/2022 00:00:00 0 20 Tablet 0 01438 064 990 P Not Taking 03/18 00:00 :00 BACTRIM DS 800 mg-160 mg tablet 03/18/2022 00:00:00 1 20 Tablet 0 11645 064 990 P Start 12/11 00:00 :00 BACTRIM DS 800 mg-160 mg tablet 08/13/2021 00:00:00 0 20 Tablet 0 55931 064 990 P Not Taking 11/27 00:00 :00 BIPAP 07/05/2022 00:00:00 1 0 P Taking 09/19 00:00 :00 BIPAP 07/05/2022 00:00:00 1 0 P Taking 06/01 00:00 :00 BIPAP 07/05/2022 00:00:00 1 0 P Taking 05/18 00:00 :00 BIPAP 07/05/2022 00:00:00 1 0 P Taking 05/15 00:00 :00 BIPAP 07/05/2022 00:00:00 1 0 P Taking 05/11 00:00 :00 BIPAP 07/05/2022 00:00:00 1 0 P Taking 03/21 00:00 :00 BIPAP 07/05/2022 00:00:00 1 0 P Taking 12/07 00:00 :00 BIPAP 07/05/2022 00:00:00 1 0 P Taking 06/09 00:00 :00 BIPAP 07/05/2022 00:00:00 1 0 P Taking 05/31 00:00 :00 BIPAP 07/05/2022 00:00:00 1 0 P Taking 03/09 00:00 :00 BIPAP 07/05/2022 00:00:00 1 0 P Taking 01/29 00:00 :00 BIPAP 07/05/2022 00:00:00 1 0 P Taking 12/03 00:00 :00 BIPAP 07/05/2022 00:00:00 1 0 P Taking 11/03 00:00 :00 BIPAP 07/05/2022 00:00:00 1 0 P Taking 08/10 00:00 :00 BIPAP 07/05/2022 00:00:00 1 0 P Taking 07/05 00:00 :00 BIPAP 07/05/2022 00:00:00 1 0 P Start 11/27 00:00 :00 CareTouch CPAP & BIPAP Hose MACHINE AND SUPPLIES 07/13/2022 00:00:00 1 1 P Taking 11/27 00:00 :00 CareTouch CPAP & BIPAP Hose MACHINE AND SUPPLIES 1 P T aking 09/19 00:00 :00 CareTouch CPAP & BIPAP Hose MACHINE AND SUPPLIES 07/13/2022 00:00:00 1 1 P Taking 09/19 00:00 :00 CareTouch CPAP & BIPAP Hose MACHINE AND SUPPLIES 1 P T aking 06/01 00:00 :00 CareTouch CPAP & BIPAP Hose MACHINE AND SUPPLIES 07/13/2022 00:00:00 1 1 P Taking 06/01 00:00 :00 CareTouch CPAP & BIPAP Hose MACHINE AND SUPPLIES 1 P T aking 05/18 00:00 :00 CareTouch CPAP & BIPAP Hose MACHINE AND SUPPLIES 07/13/2022 00:00:00 1 1 P Taking 05/18 00:00 :00 CareTouch CPAP & BIPAP Hose MACHINE AND SUPPLIES 1 P T aking 05/15 00:00 :00 CareTouch CPAP & BIPAP Hose MACHINE AND SUPPLIES 07/13/2022 00:00:00 1 1 P Taking 05/15 00:00 :00 CareTouch CPAP & BIPAP Hose MACHINE AND SUPPLIES 1 P T aking 05/11 00:00 :00 CareTouch CPAP & BIPAP Hose MACHINE AND SUPPLIES 07/13/2022 00:00:00 1 1 P Taking 05/11 00:00 :00 CareTouch CPAP & BIPAP Hose MACHINE AND SUPPLIES 1 P T aking 03/21 00:00 :00 CareTouch CPAP & BIPAP Hose MACHINE AND SUPPLIES 07/13/2022 00:00:00 1 1 P Taking 03/21 00:00 :00 CareTouch CPAP & BIPAP Hose MACHINE AND SUPPLIES 1 P T aking 12/07 00:00 :00 CareTouch CPAP & BIPAP Hose MACHINE AND SUPPLIES 07/13/2022 00:00:00 1 1 P Taking 12/07 00:00 :00 CareTouch CPAP & BIPAP Hose MACHINE AND SUPPLIES 1 P T aking 06/09 00:00 :00 CareTouch CPAP & BIPAP Hose MACHINE AND SUPPLIES 07/13/2022 00:00:00 1 1 P Taking 06/09 00:00 :00 CareTouch CPAP & BIPAP Hose MACHINE AND SUPPLIES 1 P T aking 05/31 00:00 :00 CareTouch CPAP & BIPAP Hose MACHINE AND SUPPLIES 07/13/2022 00:00:00 1 1 P Taking 05/31 00:00 :00 CareTouch CPAP & BIPAP Hose MACHINE AND SUPPLIES 1 P T aking 03/09 00:00 :00 CareTouch CPAP & BIPAP Hose MACHINE AND SUPPLIES 07/13/2022 00:00:00 1 1 P Taking 03/09 00:00 :00 CareTouch CPAP & BIPAP Hose MACHINE AND SUPPLIES 1 P T aking 01/29 00:00 :00 CareTouch CPAP & BIPAP Hose MACHINE AND SUPPLIES 07/13/2022 00:00:00 1 1 P Taking 01/29 00:00 :00 CareTouch CPAP & BIPAP Hose MACHINE AND SUPPLIES 1 P T aking 12/03 00:00 :00 CEFTIN 500mg 08/10/2022 00:00:00 0 14 0 0835375 9 400 P Not Taking 11/03 00:00 :00 CEFTIN 500mg 08/10/2022 00:00:00 0 14 0 0322994 9 400 P Not Taking 08/10 00:00 :00 CEFTIN 500mg 08/10/2022 00:00:00 1 14 0 4704820 9 400 P Start 11/27 00:00 :00 Cefuroxime Axetil 500 MG Tablet 11/27/2024 00:00:00 1 14 Tablet 57861 040 101 P Start 03/21 00:00 :00 Cefuroxime Axetil 250 MG Tablet 12/12/2023 00:00:00 0 20 Tablet 0 78991 040 001 P Discontinu ed 12/11 00:00 :00 Cefuroxime Axetil 250 MG Tablet 12/12/2023 00:00:00 1 20 Tablet 0 38585 040 001 P Start 06/09 00:00 :00 Cefuroxime Axetil 500MG 08/10/2022 00:00:00 0 14 0 P Not Efren barnett 05/31 00:00 :00 Cefuroxime Axetil 500MG 08/10/2022 00:00:00 0 14 0 P Not Efren barnett 03/09 00:00 :00 Cefuroxime Axetil 500MG 08/10/2022 00:00:00 0 14 0 P Not Efren barnett 01/29 00:00 :00 Cefuroxime Axetil 500MG 08/10/2022 00:00:00 0 14 0 P Not Efren barnett 11/27 00:00 :00 Chlorthalid one 25 MG Tablet 1 90 Tablet 1 678 49947 601 Taking 09/19 00:00 :00 Chlorthalid one 25 MG Tablet 1 90 Tablet 1 678 11055 601 Taking 08/27 00:00 :00 Chlorthalid one 25 MG Tablet 1 90 Tablet 1 678 91473 601 Start 08/27 00:00 :00 Chlorthalid one 25 MG Tablet 0 90 Tablet 1 678 11160 601 Stop 06/01 00:00 :00 Chlorthalid one 25 MG Tablet 1 90 Tablet 1 678 48729 601 Taking 05/18 00:00 :00 Chlorthalid one 25 MG Tablet 1 90 Tablet 1 678 57762 601 Taking 05/15 00:00 :00 Chlorthalid one 25 MG Tablet 1 90 Tablet 1 678 93313 601 Taking 05/11 00:00 :00 Chlorthalid one 25 MG Tablet 1 90 Tablet 1 678 17032 601 Taking 03/21 00:00 :00 Chlorthalid one 25 MG Tablet 1 90 Tablet 1 678 34543 601 Taking 02/06 00:00 :00 Chlorthalid one 25 MG Tablet 1 90 Tablet 1 678 44287 601 Start 02/06 00:00 :00 Chlorthalid one 25 MG Tablet 0 90 Tablet 0 678 93579 601 Stop 12/07 00:00 :00 Chlorthalid one 25 MG Tablet 1 90 Tablet 0 678 75688 601 Taking 11/07 00:00 :00 Chlorthalid one 25 MG Tablet 1 90 Tablet 0 678 63579 601 Start 11/07 00:00 :00 Chlorthalid one 25 MG Tablet 0 90 Tablet 0 678 87979 601 Stop 07/15 00:00 :00 Chlorthalid one 25 MG Tablet 1 90 Tablet 0 678 68624 601 Start 07/15 00:00 :00 Chlorthalid one 25 MG Tablet 0 90 Tablet 0 003 08464 201 Stop 06/09 00:00 :00 Chlorthalid one 25 MG Tablet 1 90 Tablet 0 003 58868 201 Taking 05/31 00:00 :00 Chlorthalid one 25 MG Tablet 1 90 Tablet 0 003 43629 201 Taking 04/04 00:00 :00 Chlorthalid one 25 MG Tablet 1 90 Tablet 0 003 03797 201 Start 04/04 00:00 :00 Chlorthalid one 25 MG Tablet 0 30 5 1362706 2 201 Stop 03/09 00:00 :00 Chlorthalid one 25 MG Tablet 1 30 5 6422275 2 201 Taking 01/29 00:00 :00 Chlorthalid one 25 MG Tablet 1 30 5 8848052 2 201 Start 01/05 00:00 :00 CHLORTHALID ONE 25 mg tablet 1 30 5 6060806 0 910 Start 01/05 00:00 :00 CHLORTHALID ONE 25 mg tablet 0 30 5 0228348 0 910 Stop 12/03 00:00 :00 CHLORTHALID ONE 25 mg tablet 1 30 5 2665877 0 910 Taking 11/03 00:00 :00 CHLORTHALID ONE 25 mg tablet 1 30 5 9081500 0 910 Taking 08/10 00:00 :00 CHLORTHALID ONE 25 mg tablet 1 30 5 4508551 0 910 Taking 08/04 00:00 :00 CHLORTHALID ONE 25 mg tablet 1 30 5 5257639 0 910 Start 08/04 00:00 :00 CHLORTHALID ONE 25 mg tablet 0 30 5 6523794 0 910 Stop 07/01 00:00 :00 CHLORTHALID ONE 25 mg tablet 1 30 5 3926407 0 910 P Taking 03/18 00:00 :00 CHLORTHALID ONE 25 mg tablet 1 30 5 2090930 0 910 P Taking 01/27 00:00 :00 CHLORTHALID ONE 25 mg tablet 1 30 5 3533883 0 910 P Unknown Status 01/27 00:00 :00 CHLORTHALID ONE 25 mg tablet 01/01/2022 00:00:00 1 30 0 4100113 0 910 P Taking 01/01 00:00 :00 CHLORTHALID ONE 25 mg tablet 01/01/2022 00:00:00 1 30 0 6649259 0 910 P Start 03/21 00:00 :00 Ciclopirox 8 % Solution 12/09/2023 00:00:00 0 6.6 mL 3 8150864 5 351 P Discontinu ed 12/07 00:00 :00 Ciclopirox 8 % Solution 12/09/2023 00:00:00 1 6.6 mL 3 9302284 5 351 P Start 12/03 00:00 :00 CO Q-10 100 mg capsule 1 4348862 2 816 Taking 11/03 00:00 :00 CO Q-10 100 mg capsule 1 9599065 2 816 Taking 08/10 00:00 :00 CO Q-10 100 mg capsule 1 5152772 2 816 Taking 07/01 00:00 :00 CO Q-10 100 mg capsule 1 5488064 2 816 Taking 03/18 00:00 :00 CO Q-10 100 mg capsule 1 7899259 2 816 Taking 01/27 00:00 :00 CO Q-10 100 mg capsule 1 5070099 2 816 Taking 01/01 00:00 :00 CO Q-10 100 mg capsule 1 6692796 2 816 Taking 12/11 00:00 :00 CO Q-10 100 mg capsule 1 5848514 2 816 Taking 11/27 00:00 :00 CoQ-10 100 MG Capsule 1 81429713 286 Taking 09/19 00:00 :00 CoQ-10 100 MG Capsule 1 62745840 286 Taking 06/01 00:00 :00 CoQ-10 100 MG Capsule 1 51824063 286 Taking 05/18 00:00 :00 CoQ-10 100 MG Capsule 1 56152632 286 Taking 05/15 00:00 :00 CoQ-10 100 MG Capsule 1 44852433 286 Taking 05/11 00:00 :00 CoQ-10 100 MG Capsule 1 59625598 286 Taking 03/21 00:00 :00 CoQ-10 100 MG Capsule 1 73511573 286 Taking 12/07 00:00 :00 CoQ-10 100 MG Capsule 1 27036971 286 Taking 06/09 00:00 :00 CoQ-10 100 MG Capsule 1 39723292 286 Taking 05/31 00:00 :00 CoQ-10 100 MG Capsule 1 84128005 286 Taking 03/09 00:00 :00 CoQ-10 100 MG Capsule 1 78559483 286 Taking 01/29 00:00 :00 CoQ-10 100 MG Capsule 1 48355013 286 Taking 11/27 00:00 :00 CPAP MACHINE AND SUPPLIES machine and supplies 1 P T aking 09/19 00:00 :00 CPAP MACHINE AND SUPPLIES machine and supplies 1 P T aking 06/01 00:00 :00 CPAP MACHINE AND SUPPLIES machine and supplies 1 P T aking 05/18 00:00 :00 CPAP MACHINE AND SUPPLIES machine and supplies 1 P T aking 05/15 00:00 :00 CPAP MACHINE AND SUPPLIES machine and supplies 1 P T aking 05/11 00:00 :00 CPAP MACHINE AND SUPPLIES machine and supplies 1 P T aking 03/21 00:00 :00 CPAP MACHINE AND SUPPLIES machine and supplies 1 P T aking 12/07 00:00 :00 CPAP MACHINE AND SUPPLIES machine and supplies 1 P C ontinue 12/07 00:00 :00 CPAP MACHINE AND SUPPLIES machine and supplies 1 P T aking 06/09 00:00 :00 CPAP MACHINE AND SUPPLIES machine and supplies 1 P C ontinue 06/09 00:00 :00 CPAP MACHINE AND SUPPLIES machine and supplies 1 P T aking 05/31 00:00 :00 CPAP MACHINE AND SUPPLIES machine and supplies 1 P T aking 03/09 00:00 :00 CPAP MACHINE AND SUPPLIES machine and supplies 1 P C ontinue 12/03 00:00 :00 CPAP MACHINE AND SUPPLIES machine and supplies 07/13/2022 00:00:00 1 1 P Taking 12/03 00:00 :00 CPAP MACHINE AND SUPPLIES machine and supplies 1 P T aking 11/03 00:00 :00 CPAP MACHINE AND SUPPLIES machine and supplies 1 P C ontinue 11/03 00:00 :00 CPAP MACHINE AND SUPPLIES machine and supplies 07/01/2022 00:00:00 1 1 0 P Taking 11/03 00:00 :00 CPAP MACHINE AND SUPPLIES machine and supplies 07/13/2022 00:00:00 1 1 P Taking 08/10 00:00 :00 CPAP MACHINE AND SUPPLIES machine and supplies 07/01/2022 00:00:00 1 1 0 P Taking 08/10 00:00 :00 CPAP MACHINE AND SUPPLIES machine and supplies 07/13/2022 00:00:00 1 1 P Taking 07/13 00:00 :00 CPAP MACHINE AND SUPPLIES machine and supplies 07/13/2022 00:00:00 1 1 P Start 07/01 00:00 :00 CPAP MACHINE AND SUPPLIES machine and supplies 07/01/2022 00:00:00 1 1 0 P Start 05/15 00:00 :00 CPAP SUPPLIES 01/03/2020 00:00:00 1 1 0 P Taking 05/11 00:00 :00 CPAP SUPPLIES 01/03/2020 00:00:00 1 1 0 P Taking 03/21 00:00 :00 CPAP SUPPLIES 01/03/2020 00:00:00 1 1 0 P Taking 12/07 00:00 :00 CPAP SUPPLIES 01/03/2020 00:00:00 1 1 0 P Taking 06/09 00:00 :00 CPAP SUPPLIES 01/03/2020 00:00:00 1 1 0 P Taking 05/31 00:00 :00 CPAP SUPPLIES 01/03/2020 00:00:00 1 1 0 P Taking 03/09 00:00 :00 CPAP SUPPLIES 01/03/2020 00:00:00 1 1 0 P Taking 01/29 00:00 :00 CPAP SUPPLIES 01/03/2020 00:00:00 1 1 0 P Taking 12/03 00:00 :00 CPAP SUPPLIES 01/03/2020 00:00:00 1 1 0 P Taking 11/03 00:00 :00 CPAP SUPPLIES 01/03/2020 00:00:00 1 1 0 P Taking 08/10 00:00 :00 CPAP SUPPLIES 01/03/2020 00:00:00 1 1 0 P Taking 07/01 00:00 :00 CPAP SUPPLIES 01/03/2020 00:00:00 1 1 0 P Taking 03/18 00:00 :00 CPAP SUPPLIES 01/03/2020 00:00:00 1 1 0 P Taking 01/27 00:00 :00 CPAP SUPPLIES 01/03/2020 00:00:00 1 1 0 P Taking 01/01 00:00 :00 CPAP SUPPLIES 01/03/2020 00:00:00 1 1 0 P Taking 12/11 00:00 :00 CPAP SUPPLIES 01/03/2020 00:00:00 1 1 0 P Taking 12/08 00:00 :00 Farxiga 5 MG Tablet 12/30/2023 00:00:00 1 30 2 7005600 0 530 P Start 05/15 00:00 :00 Fluticasone Furoate 27.5 MCG/SPR AY Suspension 1 Taking 05/11 00:00 :00 Fluticasone Furoate 27.5 MCG/SPR AY Suspension 1 Taking 03/21 00:00 :00 Fluticasone Furoate 27.5 MCG/SPR AY Suspension 1 Taking 12/07 00:00 :00 Fluticasone Furoate 27.5 MCG/SPR AY Suspension 1 Taking 06/09 00:00 :00 Fluticasone Furoate 27.5 MCG/SPR AY Suspension 1 Taking 05/31 00:00 :00 Fluticasone Furoate 27.5 MCG/SPR AY Suspension 1 Taking 03/09 00:00 :00 Fluticasone Furoate 27.5 MCG/SPR AY Suspension 1 Taking 01/29 00:00 :00 Fluticasone Furoate 27.5 MCG/SPR AY Suspension 1 Taking 12/03 00:00 :00 FLUTICASONE NASAL 27.5 mcg/inh spray 1 49667040 099 Taking 11/03 00:00 :00 FLUTICASONE NASAL 27.5 mcg/inh spray 1 [id number] 099 Taking 08/10 00:00 :00 FLUTICASONE NASAL 27.5 mcg/inh spray 1 [id number] 099 Continue 08/10 00:00 :00 FLUTICASONE NASAL 27.5 mcg/inh spray 1 [id number] 099 Taking 07/01 00:00 :00 FLUTICASONE NASAL 27.5 mcg/inh spray 1 [id number] 099 Taking 03/18 00:00 :00 FLUTICASONE NASAL 27.5 mcg/inh spray 1 [id number] 099 Taking 01/27 00:00 :00 FLUTICASONE NASAL 27.5 mcg/inh spray 1 [id number] 099 Taking 01/01 00:00 :00 FLUTICASONE NASAL 27.5 mcg/inh spray 1 [id number] 099 Taking 12/11 00:00 :00 FLUTICASONE NASAL 27.5 mcg/inh spray 1 [id number] 099 Taking 12/03 00:00 :00 Glimepiride 2 MG Tablet 1 90 Tablet 0 5 [id number] 105 Start 12/03 00:00 :00 Glimepiride 2 MG Tablet 0 90 Tablet 0 5 [id number] 105 Stop 11/27 00:00 :00 Glimepiride 2 MG Tablet 1 90 Tablet 0 5 [id number] 105 Taking 09/19 00:00 :00 Glimepiride 2 MG Tablet 1 90 Tablet 0 5 [id number] 105 Taking 09/07 00:00 :00 Glimepiride 2 MG Tablet 1 90 Tablet 0 5 [id number] 105 Start 09/07 00:00 :00 Glimepiride 2 MG Tablet 0 90 Tablet 0 5 [id number] 105 Stop 06/11 00:00 :00 Glimepiride 2 MG Tablet 1 90 Tablet 0 5 [id number] 105 Start 06/11 00:00 :00 Glimepiride 2 MG Tablet 0 90 Tablet 0 5 [id number] 105 Stop 06/01 00:00 :00 Glimepiride 2 MG Tablet 1 90 Tablet 0 5 [id number] 105 Taking 05/18 00:00 :00 Glimepiride 2 MG Tablet 1 90 Tablet 0 5 [id number] 105 Taking 05/15 00:00 :00 Glimepiride 2 MG Tablet 1 90 Tablet 0 5 [id number] 105 Taking 05/11 00:00 :00 Glimepiride 2 MG Tablet 1 90 Tablet 0 5 [id number] 105 Taking 03/21 00:00 :00 Glimepiride 2 MG Tablet 1 90 Tablet 0 5 [id number] 105 Taking 01/18 00:00 :00 Glimepiride 2 MG Tablet 1 90 Tablet 0 5 [id number] 105 Start 01/18 00:00 :00 Glimepiride 2 MG Tablet 0 90 1 [id number] 77 401 Stop 12/07 00:00 :00 Glimepiride 2 MG Tablet 1 90 1 [id number] 77 401 Taking 08/01 00:00 :00 Glimepiride 2 MG Tablet 1 90 1 [id number] 77 401 Start 08/01 00:00 :00 Glimepiride 2 MG Tablet 0 90 1 [id number] 77 401 Stop 06/09 00:00 :00 Glimepiride 2 MG Tablet 1 90 1 [id number] 77 401 Taking 05/31 00:00 :00 Glimepiride 2 MG Tablet 1 90 1 [id number] 77 401 Taking 03/09 00:00 :00 Glimepiride 2 MG Tablet 1 90 1 [id number] 77 401 Taking 01/29 00:00 :00 Glimepiride 2 MG Tablet 1 90 1 [id number] 77 401 Start 01/27 00:00 :00 GLIMEPIRIDE 2 mg tablet 1 90 1 [id number] 57 290 Start 01/27 00:00 :00 GLIMEPIRIDE 2 mg tablet 0 90 2 [id number] 57 290 Stop 12/03 00:00 :00 GLIMEPIRIDE 2 mg tablet 1 90 2 [id number] 57 290 Taking 11/03 00:00 :00 GLIMEPIRIDE 2 mg tablet 1 90 2 [id number] 57 290 Taking 08/10 00:00 :00 GLIMEPIRIDE 2 mg tablet 1 90 2 [id number] 57 290 Taking 07/14 00:00 :00 GLIMEPIRIDE 2 mg tablet 1 90 2 [id number] 57 290 Start 07/14 00:00 :00 GLIMEPIRIDE 2 mg tablet 0 90 2 [id number] 57 290 Stop 07/01 00:00 :00 GLIMEPIRIDE 2 mg tablet 1 90 2 [id number] 57 290 Taking 03/18 00:00 :00 GLIMEPIRIDE 2 mg tablet 1 90 2 [id number] 57 290 Taking 01/27 00:00 :00 GLIMEPIRIDE 2 mg tablet 1 90 2 [id number] 57 290 Taking 01/01 00:00 :00 GLIMEPIRIDE 2 mg tablet 1 90 2 [id number] 57 290 Taking 12/22 00:00 :00 GLIMEPIRIDE 2 mg tablet 1 90 2 [id number] 57 290 Start 12/22 00:00 :00 GLIMEPIRIDE 2 mg tablet 0 90 1 [id number] 57 290 Stop 12/11 00:00 :00 GLIMEPIRIDE 2 mg tablet 1 90 1 [id number] 57 290 Taking 03/21 00:00 :00 Jublia 10 % Solution 12/08/2023 00:00:00 0 1 5 [id number] 0 004 P Discontinu ed 12/07 00:00 :00 Jublia 10 % Solution 12/08/2023 00:00:00 1 1 5 [id number] 0 004 P Start 07/15 00:00 :00 Klor-Con M20 20 MEQ Tablet Extended Release 0 90 2 [id number] 901 Stop 06/09 00:00 :00 Klor-Con M20 20 MEQ Tablet Extended Release 1 90 2 [id number] 901 Taking 05/31 00:00 :00 Klor-Con M20 20 MEQ Tablet Extended Release 1 90 2 [id number] 901 Taking 03/09 00:00 :00 Klor-Con M20 20 MEQ Tablet Extended Release 1 90 2 [id number] 901 Taking 06/03 /2023 00:00 :00 Klor-Con M20 20 MEQ Tablet Extended Release 1 90 2 [id number] Start 01/05 00:00 :00 KLOR-CON M20 20 mEq tablet, extended release 1 90 2 [id number] 510 Start 01/05 00:00 :00 KLOR-CON M20 20 mEq tablet, extended release 0 90 1 [id number] 510 Stop 12/03 00:00 :00 KLOR-CON M20 20 mEq tablet, extended release 1 90 1 [id number] 510 Taking 11/03 00:00 :00 KLOR-CON M20 20 mEq tablet, extended release 1 90 1 [id number] 510 Taking 09/21 00:00 :00 KLOR-CON M20 20 mEq tablet, extended release 1 90 1 [id number] 510 Start 09/21 00:00 :00 KLOR-CON M20 20 mEq tablet, extended release 0 90 1 [id number] 510 Stop 08/10 00:00 :00 KLOR-CON M20 20 mEq tablet, extended release 1 90 1 [id number] 510 Taking 07/01 00:00 :00 KLOR-CON M20 20 mEq tablet, extended release 1 90 1 [id number] 510 Taking 06/18 00:00 :00 KLOR-CON M20 20 mEq tablet, extended release 1 90 1 [id number] 510 Start 06/18 00:00 :00 KLOR-CON M20 20 mEq tablet, extended release 0 90 1 [id number] 510 Stop 03/18 00:00 :00 KLOR-CON M20 20 mEq tablet, extended release 1 90 1 [id number] 510 Taking 03/15 00:00 :00 KLOR-CON M20 20 mEq tablet, extended release 1 90 1 [id number] 510 Start 03/15 00:00 :00 KLOR-CON M20 20 mEq tablet, extended release 0 90 1 [id number] 510 Stop 01/27 00:00 :00 KLOR-CON M20 20 mEq tablet, extended release 1 90 1 [id number] 510 Taking 01/01 00:00 :00 KLOR-CON M20 20 mEq tablet, extended release 1 90 1 [id number] 510 Taking 12/11 00:00 :00 KLOR-CON M20 20 mEq tablet, extended release 1 90 1 [id number] 510 Taking 12/07 00:00 :00 KLOR-CON M20 20 mEq tablet, extended release 1 90 1 [id number] 510 Start 12/07 00:00 :00 KLOR-CON M20 20 mEq tablet, extended release 0 90 1 [id number] 510 Stop 11/27 00:00 :00 Lasix 20 MG Tablet 1 45 1 [id number] 701 P Taking 10/08 00:00 :00 Lasix 20 MG Tablet 1 45 1 [id number] 701 P Unknown Status 09/19 00:00 :00 Lasix 20 MG Tablet 1 45 1 [id number] 701 Taking 06/01 00:00 :00 Lasix 20 MG Tablet 1 45 1 [id number] 701 Taking 05/18 00:00 :00 Lasix 20 MG Tablet 1 45 1 [id number] 701 Taking 05/15 00:00 :00 Lasix 20 MG Tablet 1 45 1 [id number] 701 Taking 05/11 00:00 :00 Lasix 20 MG Tablet 1 45 1 [id number] 701 Taking 03/21 00:00 :00 Lasix 20 MG Tablet 1 45 1 [id number] 701 Taking 03/19 00:00 :00 Lasix 20 MG Tablet 1 45 1 [id number] 701 Start 03/19 00:00 :00 Lasix 20 MG Tablet 0 45 1 [id number] 701 Stop 12/07 00:00 :00 Lasix 20 MG Tablet 1 45 1 [id number] 701 Taking 08/30 00:00 :00 Lasix 20 MG Tablet 1 45 1 [id number] 701 Start 08/30 00:00 :00 Lasix 20 MG Tablet 0 45 1 [id number] 701 Stop 06/09 00:00 :00 Lasix 20 MG Tablet 1 45 1 [id number] 701 Taking 05/31 00:00 :00 Lasix 20 MG Tablet 1 45 1 [id number] 701 Taking 03/09 00:00 :00 Lasix 20 MG Tablet 1 45 1 [id number] 701 Unknown Status 03/09 00:00 :00 Lasix 20 MG Tablet 1 [id number] 701 Taking 01/29 00:00 :00 Lasix 20 MG Tablet 1 [id number] 701 Taking 12/03 00:00 :00 LASIX 20MG tablet 1 [id number] 111 Taking 11/11 00:00 :00 LASIX 20MG tablet 1 [id number] 111 Decrease 11/03 00:00 :00 LASIX 20MG tablet 1 90 1 [id number] 111 Taking 09/21 00:00 :00 LASIX 20MG tablet 1 90 1 [id number] 111 Start 09/21 00:00 :00 LASIX 20MG tablet 0 90 1 [id number] 111 Stop 08/10 00:00 :00 LASIX 20MG tablet 1 90 1 [id number] 111 Taking 07/01 00:00 :00 LASIX 20MG tablet 1 90 1 [id number] 111 Taking 06/18 00:00 :00 LASIX 20MG tablet 1 90 1 [id number] 111 Start 06/18 00:00 :00 LASIX 20MG tablet 0 90 1 [id number] 111 Stop 03/18 00:00 :00 LASIX 20MG tablet 1 90 1 [id number] 111 Taking 03/15 00:00 :00 LASIX 20MG tablet 1 90 1 [id number] 111 Start 03/15 00:00 :00 LASIX 20MG tablet 0 90 1 [id number] 111 Stop 01/27 00:00 :00 LASIX 20MG tablet 1 90 1 [id number] 111 Taking 01/01 00:00 :00 LASIX 20MG tablet 1 90 1 [id number] 111 Taking 12/11 00:00 :00 LASIX 20MG tablet 1 90 1 [id number] 111 Taking 12/07 00:00 :00 LASIX 20MG tablet 1 90 1 [id number] 111 Start 12/07 00:00 :00 LASIX 20MG tablet 0 90 1 [id number] 111 Stop 11/27 00:00 :00 Leqvio 284 MG/1.5M L Solution Prefilled Syringe 09/20/2024 00:00:00 1 1 1 [id number] 0 060 P Taking 09/21 00:00 :00 Leqvio 284 MG/1.5M L Solution Prefilled Syringe 09/20/2024 00:00:00 1 1 1 [id number] 0 060 P Start 09/20 00:00 :00 Leqvio 284 MG/1.5M L Solution Prefilled Syringe 09/20/2024 00:00:00 1 1 1 [id number] 0 060 P Start 11/27 00:00 :00 Lisinopril 40 MG Tablet 1 90 Tablet 1 6 4762565 390 Taking 09/19 00:00 :00 Lisinopril 40 MG Tablet 1 90 Tablet 1 6 [id number] 390 Taking 08/27 00:00 :00 Lisinopril 40 MG Tablet 1 90 Tablet 1 6 [id number] 390 Start 08/27 00:00 :00 Lisinopril 40 MG Tablet 0 90 Tablet 1 6 [id number] 390 Stop 06/01 00:00 :00 Lisinopril 40 MG Tablet 1 90 Tablet 1 6 [id number] 390 Taking 05/18 00:00 :00 Lisinopril 40 MG Tablet 1 90 Tablet 1 6 [id number] 390 Taking 05/15 00:00 :00 Lisinopril 40 MG Tablet 1 90 Tablet 1 6 [id number] 390 Taking 05/11 00:00 :00 Lisinopril 40 MG Tablet 1 90 Tablet 1 6 6803224 390 Taking 03/21 00:00 :00 Lisinopril 40 MG Tablet 1 90 Tablet 1 6 [id number] 390 Taking 02/06 00:00 :00 Lisinopril 40 MG Tablet 1 90 Tablet 1 6 [id number] 390 Start 02/06 00:00 :00 Lisinopril 40 MG Tablet 0 90 Tablet 0 6 [id number] 390 Stop 12/07 00:00 :00 Lisinopril 40 MG Tablet 1 90 Tablet 0 6 [id number] 390 Taking 11/07 00:00 :00 Lisinopril 40 MG Tablet 1 90 Tablet 0 6 1553573 390 Start 11/07 00:00 :00 Lisinopril 40 MG Tablet 0 90 Tablet 0 6 [id number] 390 Stop 07/15 00:00 :00 Lisinopril 40 MG Tablet 1 90 Tablet 0 6 [id number] 390 Start 07/15 00:00 :00 Lisinopril 40 MG Tablet 0 90 Tablet 0 6 [id number] 390 Stop 06/09 00:00 :00 Lisinopril 40 MG Tablet 1 90 Tablet 0 6 [id number] 390 Taking 05/31 00:00 :00 Lisinopril 40 MG Tablet 1 90 Tablet 0 6 [id number] 390 Taking 04/04 00:00 :00 Lisinopril 40 MG Tablet 1 90 Tablet 0 6 [id number] 390 Start 04/04 00:00 :00 Lisinopril 40 MG Tablet 0 90 Tablet 1 0 [id number] 901 Stop 03/09 00:00 :00 Lisinopril 40 MG Tablet 1 90 Tablet 1 0 [id number] 901 Taking 01/29 00:00 :00 Lisinopril 40 MG Tablet 1 90 Tablet 1 0 1615785 901 Start 12/31 00:00 :00 LISINOPRIL 40 mg tablet 1 90 Tablet 1 6 [id number] 554 Start 12/31 00:00 :00 LISINOPRIL 40 mg tablet 0 90 Tablet 1 6 [id number] 554 Stop 12/03 00:00 :00 LISINOPRIL 40 mg tablet 1 90 Tablet 1 6 [id number] 554 Taking 11/03 00:00 :00 LISINOPRIL 40 mg tablet 1 90 Tablet 1 6 [id number] 554 Taking 09/21 00:00 :00 LISINOPRIL 40 mg tablet 1 90 Tablet 1 6 [id number] 554 Start 09/21 00:00 :00 LISINOPRIL 40 mg tablet 0 90 Tablet 1 6 [id number] 554 Stop 08/10 00:00 :00 LISINOPRIL 40 mg tablet 1 90 Tablet 1 6 [id number] 554 Taking 07/01 00:00 :00 LISINOPRIL 40 mg tablet 1 90 Tablet 1 6 [id number] 554 Taking 06/18 00:00 :00 LISINOPRIL 40 mg tablet 1 90 Tablet 1 6 [id number] 554 Start 06/18 00:00 :00 LISINOPRIL 40 mg tablet 0 90 Tablet 1 6 [id number] 554 Stop 03/18 00:00 :00 LISINOPRIL 40 mg tablet 1 90 Tablet 1 6 [id number] 554 Taking 03/15 00:00 :00 LISINOPRIL 40 mg tablet 1 90 Tablet 1 6 [id number] 554 Start 03/15 00:00 :00 LISINOPRIL 40 mg tablet 0 90 Tablet 1 6 [id number] 554 Stop 01/27 00:00 :00 LISINOPRIL 40 mg tablet 1 90 Tablet 1 6 [id number] 554 Taking 01/01 00:00 :00 LISINOPRIL 40 mg tablet 1 90 Tablet 1 6 [id number] 554 Taking 12/11 00:00 :00 LISINOPRIL 40 mg tablet 1 90 Tablet 1 6 [id number] 554 Taking 12/07 00:00 :00 LISINOPRIL 40 mg tablet 1 90 Tablet 1 6 [id number] 554 Start 12/07 00:00 :00 LISINOPRIL 40 mg tablet 0 90 Tablet 1 6 [id number] 554 Stop 12/03 00:00 :00 METFORMIN 500 mg tablet 1 180 Tablet 2 [id number] 259 Taking 11/08 00:00 :00 METFORMIN 500 mg tablet 1 180 Tablet 2 [id number] 259 Start 11/08 00:00 :00 METFORMIN 500 mg tablet 0 180 Tablet 2 [id number] 259 Stop 11/03 00:00 :00 METFORMIN 500 mg tablet 1 180 Tablet 2 [id number] 259 Taking 08/10 00:00 :00 METFORMIN 500 mg tablet 1 180 Tablet 2 [id number] 259 Taking 07/01 00:00 :00 METFORMIN 500 mg tablet 1 180 Tablet 2 [id number] 259 Taking 05/04 00:00 :00 METFORMIN 500 mg tablet 1 180 Tablet 2 [id number] 259 Start 05/04 00:00 :00 METFORMIN 500 mg tablet 0 180 2 [id number] 58 259 Stop 03/18 00:00 :00 METFORMIN 500 mg tablet 1 180 2 [id number] 58 259 Taking 01/27 00:00 :00 METFORMIN 500 mg tablet 1 180 2 [id number] 58 259 Taking 01/01 00:00 :00 METFORMIN 500 mg tablet 1 180 2 [id number] 58 259 Taking 12/11 00:00 :00 METFORMIN 500 mg tablet 1 180 2 [id number] 58 259 Taking 11/27 00:00 :00 metFORMIN HCl 500 MG Tablet 0 180 Tablet 1 [id number] 259 Not Taking 09/19 00:00 :00 metFORMIN HCl 500 MG Tablet 0 180 Tablet 1 [id number] 259 Not Taking 06/01 00:00 :00 metFORMIN HCl 500 MG Tablet 0 180 Tablet 1 [id number] 259 Not Taking 05/18 00:00 :00 metFORMIN HCl 500 MG Tablet 1 180 Tablet 1 [id number] 259 Taking 05/15 00:00 :00 metFORMIN HCl 500 MG Tablet 1 180 Tablet 1 [id number] 259 Taking 05/11 00:00 :00 metFORMIN HCl 500 MG Tablet 1 180 Tablet 1 [id number] 259 Taking 04/16 00:00 :00 metFORMIN HCl 500 MG Tablet 1 180 Tablet 1 [id number] 259 Start 04/16 00:00 :00 metFORMIN HCl 500 MG Tablet 0 180 Tablet 1 [id number] 259 Stop 03/21 00:00 :00 metFORMIN HCl 500 MG Tablet 1 180 Tablet 1 [id number] 259 Taking 12/07 00:00 :00 metFORMIN HCl 500 MG Tablet 1 180 Tablet 1 [id number] 259 Taking 10/24 00:00 :00 metFORMIN HCl 500 MG Tablet 1 180 Tablet 1 [id number] 259 Start 10/24 00:00 :00 metFORMIN HCl 500 MG Tablet 0 180 Tablet 1 [id number] 259 Stop 06/09 00:00 :00 metFORMIN HCl 500 MG Tablet 1 180 Tablet 1 [id number] 259 Taking 05/31 00:00 :00 metFORMIN HCl 500 MG Tablet 1 180 Tablet 1 [id number] 259 Taking 05/04 00:00 :00 metFORMIN HCl 500 MG Tablet 1 180 Tablet 1 [id number] 259 Start 05/04 00:00 :00 metFORMIN HCl 500 MG Tablet 0 180 Tablet 2 81751217 505 Stop 03/09 00:00 :00 metFORMIN HCl 500 MG Tablet 1 180 Tablet 2 [id number] 505 Taking 01/29 00:00 :00 metFORMIN HCl 500 MG Tablet 1 180 Tablet 2 [id number] 505 Taking 12/03 00:00 :00 MONTELUKAST 10 mg tablet 1 12293 017 590 Taking 11/03 00:00 :00 MONTELUKAST 10 mg tablet 1 45814 017 590 Taking 08/10 00:00 :00 MONTELUKAST 10 mg tablet 1 60938 017 590 Continue 08/10 00:00 :00 MONTELUKAST 10 mg tablet 1 30 47941 017 590 Taking 07/01 00:00 :00 MONTELUKAST 10 mg tablet 1 30 69156 017 590 Taking 03/18 00:00 :00 MONTELUKAST 10 mg tablet 1 30 14444 017 590 Taking 01/27 00:00 :00 MONTELUKAST 10 mg tablet 1 30 28001 017 590 Taking 01/01 00:00 :00 MONTELUKAST 10 mg tablet 1 30 76958 017 590 Taking 06/09 00:00 :00 Montelukast Sodium 10 MG Tablet 1 826167 80 806 Taking 05/31 00:00 :00 Montelukast Sodium 10 MG Tablet 1 698261 80 806 Taking 03/09 00:00 :00 Montelukast Sodium 10 MG Tablet 1 692897 80 806 Taking 01/29 00:00 :00 Montelukast Sodium 10 MG Tablet 1 836529 80 806 Taking 05/15 00:00 :00 NEBULIZER SET UP FOR ADULT 06/11/2021 00:00:00 1 1 P Taking 05/11 00:00 :00 NEBULIZER SET UP FOR ADULT 06/11/2021 00:00:00 1 1 P Taking 03/21 00:00 :00 NEBULIZER SET UP FOR ADULT 06/11/2021 00:00:00 1 1 P Taking 12/07 00:00 :00 NEBULIZER SET UP FOR ADULT 06/11/2021 00:00:00 1 1 P Taking 06/09 00:00 :00 NEBULIZER SET UP FOR ADULT 06/11/2021 00:00:00 1 1 P Taking 05/31 00:00 :00 NEBULIZER SET UP FOR ADULT 06/11/2021 00:00:00 1 1 P Taking 03/09 00:00 :00 NEBULIZER SET UP FOR ADULT 06/11/2021 00:00:00 1 1 P Taking 01/29 00:00 :00 NEBULIZER SET UP FOR ADULT 06/11/2021 00:00:00 1 1 P Taking 12/03 00:00 :00 NEBULIZER SET UP FOR ADULT 06/11/2021 00:00:00 1 1 P Taking 11/03 00:00 :00 NEBULIZER SET UP FOR ADULT 06/11/2021 00:00:00 1 1 P Taking 08/10 00:00 :00 NEBULIZER SET UP FOR ADULT 06/11/2021 00:00:00 1 1 P Taking 07/01 00:00 :00 NEBULIZER SET UP FOR ADULT 06/11/2021 00:00:00 1 1 P Taking 03/18 00:00 :00 NEBULIZER SET UP FOR ADULT 06/11/2021 00:00:00 1 1 P Taking 01/27 00:00 :00 NEBULIZER SET UP FOR ADULT 06/11/2021 00:00:00 1 1 P Taking 01/01 00:00 :00 NEBULIZER SET UP FOR ADULT 06/11/2021 00:00:00 1 1 P Taking 12/11 00:00 :00 NEBULIZER SET UP FOR ADULT 06/11/2021 00:00:00 1 1 P Taking 11/27 00:00 :00 NEBULIZER SUPPLIES 01/28/2021 00:00:00 1 1 0 P Taking 09/19 00:00 :00 NEBULIZER SUPPLIES 01/28/2021 00:00:00 1 1 0 P Taking 06/01 00:00 :00 NEBULIZER SUPPLIES 01/28/2021 00:00:00 1 1 0 P Taking 05/18 00:00 :00 NEBULIZER SUPPLIES 01/28/2021 00:00:00 1 1 0 P Taking 05/15 00:00 :00 NEBULIZER SUPPLIES 01/28/2021 00:00:00 1 1 0 P Taking 05/11 00:00 :00 NEBULIZER SUPPLIES 01/28/2021 00:00:00 1 1 0 P Taking 03/21 00:00 :00 NEBULIZER SUPPLIES 01/28/2021 00:00:00 1 1 0 P Taking 12/07 00:00 :00 NEBULIZER SUPPLIES 01/28/2021 00:00:00 1 1 0 P Taking 06/09 00:00 :00 NEBULIZER SUPPLIES 01/28/2021 00:00:00 1 1 0 P Taking 05/31 00:00 :00 NEBULIZER SUPPLIES 01/28/2021 00:00:00 1 1 0 P Taking 03/09 00:00 :00 NEBULIZER SUPPLIES 01/28/2021 00:00:00 1 1 0 P Taking 01/29 00:00 :00 NEBULIZER SUPPLIES 01/28/2021 00:00:00 1 1 0 P Taking 12/03 00:00 :00 NEBULIZER SUPPLIES 01/28/2021 00:00:00 1 1 0 P Taking 11/03 00:00 :00 NEBULIZER SUPPLIES 01/28/2021 00:00:00 1 1 0 P Taking 08/10 00:00 :00 NEBULIZER SUPPLIES 01/28/2021 00:00:00 1 1 0 P Taking 07/01 00:00 :00 NEBULIZER SUPPLIES 01/28/2021 00:00:00 1 1 0 P Taking 03/18 00:00 :00 NEBULIZER SUPPLIES 01/28/2021 00:00:00 1 1 0 P Taking 01/27 00:00 :00 NEBULIZER SUPPLIES 01/28/2021 00:00:00 1 1 0 P Taking 01/01 00:00 :00 NEBULIZER SUPPLIES 01/28/2021 00:00:00 1 1 0 P Taking 12/11 00:00 :00 NEBULIZER SUPPLIES 01/28/2021 00:00:00 1 1 0 P Taking 06/09 00:00 :00 PHENERGAN DM 08/10/2022 00:00:00 0 8 OZ 0 P Not Ta anibal 05/31 00:00 :00 PHENERGAN DM 08/10/2022 00:00:00 0 8 OZ 0 P Not Efren barnett 03/09 00:00 :00 PHENERGAN DM 08/10/2022 00:00:00 0 8 OZ 0 P Not Efren barnett 01/29 00:00 :00 PHENERGAN DM 08/10/2022 00:00:00 0 8 OZ 0 P Not Efren barnett 12/03 00:00 :00 PHENERGAN DM 08/10/2022 00:00:00 0 8 oz 0 3702519 8 654 P Not Taking 11/03 00:00 :00 PHENERGAN DM 08/10/2022 00:00:00 0 8 oz 0 2942388 8 654 P Not Taking 08/10 00:00 :00 PHENERGAN DM 08/10/2022 00:00:00 1 8 oz 0 4309903 8 654 P Start 11/27 00:00 :00 Potassium Chloride Vicki ER 20 MEQ Tablet Extended Release 1 90 Tablet 0 036804 32 511 Taking 11/21 00:00 :00 Potassium Chloride Vicki ER 20 MEQ Tablet Extended Release 1 90 Tablet 0 486001 32 511 Start 11/21 00:00 :00 Potassium Chloride Vicki ER 20 MEQ Tablet Extended Release 0 90 Tablet 1 033589 32 511 Stop 09/19 00:00 :00 Potassium Chloride Vicki ER 20 MEQ Tablet Extended Release 1 90 Tablet 1 816220 32 511 Taking 06/01 00:00 :00 Potassium Chloride Vicki ER 20 MEQ Tablet Extended Release 1 90 Tablet 1 153922 32 511 Taking 05/28 00:00 :00 Potassium Chloride Vicki ER 20 MEQ Tablet Extended Release 1 90 Tablet 1 469870 32 511 Start 05/28 00:00 :00 Potassium Chloride Vicki ER 20 MEQ Tablet Extended Release 0 90 Tablet 1 721120 32 511 Stop 05/18 00:00 :00 Potassium Chloride Vicki ER 20 MEQ Tablet Extended Release 1 90 Tablet 1 407914 32 511 Taking 05/15 00:00 :00 Potassium Chloride Vicki ER 20 MEQ Tablet Extended Release 1 90 Tablet 1 637202 32 511 Taking 05/11 00:00 :00 Potassium Chloride Vicki ER 20 MEQ Tablet Extended Release 1 90 Tablet 1 288432 32 511 Taking 03/21 00:00 :00 Potassium Chloride Vicki ER 20 MEQ Tablet Extended Release 1 90 Tablet 1 553249 32 511 Taking 12/07 00:00 :00 Potassium Chloride Vicki ER 20 MEQ Tablet Extended Release 1 90 Tablet 1 166612 32 511 Taking 11/15 00:00 :00 Potassium Chloride Vicki ER 20 MEQ Tablet Extended Release 1 90 Tablet 1 819015 32 511 Start 11/15 00:00 :00 Potassium Chloride Vicki ER 20 MEQ Tablet Extended Release 0 90 Tablet 0 382158 32 511 Stop 07/15 00:00 :00 Potassium Chloride Vicki ER 20 MEQ Tablet Extended Release 1 90 Tablet 0 933271 32 511 Start 05/15 00:00 :00 Rosuvastati n Calcium 20 MG Tablet 0 90 1 828 35074 090 Not Taking 05/11 00:00 :00 Rosuvastati n Calcium 20 MG Tablet 1 90 1 828 82884 090 Taking 03/21 00:00 :00 Rosuvastati n Calcium 20 MG Tablet 1 90 1 828 97760 090 Taking 12/07 00:00 :00 Rosuvastati n Calcium 20 MG Tablet 1 90 1 828 72339 090 Taking 11/22 00:00 :00 Rosuvastati n Calcium 20 MG Tablet 1 90 1 828 03796 090 Start 11/22 00:00 :00 Rosuvastati n Calcium 20 MG Tablet 0 90 1 828 37270 090 Stop 06/09 00:00 :00 Rosuvastati n Calcium 20 MG Tablet 1 90 1 828 94062 090 Taking 06/02 00:00 :00 Rosuvastati n Calcium 20 MG Tablet 1 90 1 828 65085 090 Start 06/02 00:00 :00 Rosuvastati n Calcium 20 MG Tablet 0 90 2 828 29046 090 Stop 05/31 00:00 :00 Rosuvastati n Calcium 20 MG Tablet 1 90 2 828 90880 090 Taking 03/09 00:00 :00 Rosuvastati n Calcium 20 MG Tablet 1 90 2 828 72346 090 Taking 01/29 00:00 :00 Rosuvastati n Calcium 20 MG Tablet 1 90 2 828 10931 090 Taking 12/03 00:00 :00 ROSUVASTATI N CALCIUM 20 mg tablet 1 90 2 722 53315 490 Taking 11/29 00:00 :00 ROSUVASTATI N CALCIUM 20 mg tablet 1 90 2 722 98172 490 Start 11/29 00:00 :00 ROSUVASTATI N CALCIUM 20 mg tablet 0 90 1 722 89420 490 Stop 11/03 00:00 :00 ROSUVASTATI N CALCIUM 20 mg tablet 1 90 1 722 11833 490 Taking 08/25 00:00 :00 ROSUVASTATI N CALCIUM 20 mg tablet 1 90 1 722 96019 490 Start 08/25 00:00 :00 ROSUVASTATI N CALCIUM 20 mg tablet 0 90 1 722 61477 490 Stop 08/10 00:00 :00 ROSUVASTATI N CALCIUM 20 mg tablet 1 90 1 722 33945 490 Taking 07/01 00:00 :00 ROSUVASTATI N CALCIUM 20 mg tablet 1 90 1 722 32671 490 Taking 05/24 00:00 :00 ROSUVASTATI N CALCIUM 20 mg tablet 1 90 1 722 29407 490 Start 05/24 00:00 :00 ROSUVASTATI N CALCIUM 20 mg tablet 0 90 1 722 36758 490 Stop 03/18 00:00 :00 ROSUVASTATI N CALCIUM 20 mg tablet 1 90 1 722 02049 490 Taking 02/17 00:00 :00 ROSUVASTATI N CALCIUM 20 mg tablet 1 90 1 722 70173 490 Start 02/17 00:00 :00 ROSUVASTATI N CALCIUM 20 mg tablet 0 90 1 722 00727 490 Stop 01/27 00:00 :00 ROSUVASTATI N CALCIUM 20 mg tablet 1 90 1 722 49198 490 Taking 01/01 00:00 :00 ROSUVASTATI N CALCIUM 20 mg tablet 1 90 1 722 69245 490 Taking 12/11 00:00 :00 ROSUVASTATI N CALCIUM 20 mg tablet 1 90 1 722 83755 490 Taking 11/27 00:00 :00 Symbicort 80-4.5 MCG/ACT Aerosol 0 62504993 220 Not Taking 09/19 00:00 :00 Symbicort 80-4.5 MCG/ACT Aerosol 1 30965268 220 Taking 06/01 00:00 :00 Symbicort 80-4.5 MCG/ACT Aerosol 1 71185280 220 Taking 05/18 00:00 :00 Symbicort 80-4.5 MCG/ACT Aerosol 1 42609970 220 Taking 05/15 00:00 :00 Symbicort 80-4.5 MCG/ACT Aerosol 1 52925048 220 Taking 05/11 00:00 :00 Symbicort 80-4.5 MCG/ACT Aerosol 1 40904061 220 Taking 03/21 00:00 :00 Symbicort 80-4.5 MCG/ACT Aerosol 1 71188593 220 Taking 12/07 00:00 :00 Symbicort 80-4.5 MCG/ACT Aerosol 1 60008313 220 Taking 06/09 00:00 :00 Symbicort 80-4.5 MCG/ACT Aerosol 1 81603410 220 Taking 05/31 00:00 :00 Symbicort 80-4.5 MCG/ACT Aerosol 1 99386072 220 Taking 03/09 00:00 :00 Symbicort 80-4.5 MCG/ACT Aerosol 1 96995312 220 Taking 01/29 00:00 :00 Symbicort 80-4.5 MCG/ACT Aerosol 1 62546609 220 Taking 12/03 00:00 :00 SYMBICORT 80 mcg-4.5 mcg/inh aerosol 1 01526311 228 Taking 11/03 00:00 :00 SYMBICORT 80 mcg-4.5 mcg/inh aerosol 1 30875498 228 Taking 08/10 00:00 :00 SYMBICORT 80 mcg-4.5 mcg/inh aerosol 1 03777305 228 Continue 08/10 00:00 :00 SYMBICORT 80 mcg-4.5 mcg/inh aerosol 1 07574461 228 Taking 07/01 00:00 :00 SYMBICORT 80 mcg-4.5 mcg/inh aerosol 1 55528251 228 Taking 03/18 00:00 :00 SYMBICORT 80 mcg-4.5 mcg/inh aerosol 1 16807327 228 Taking 01/27 00:00 :00 SYMBICORT 80 mcg-4.5 mcg/inh aerosol 1 58373947 228 Taking 01/01 00:00 :00 SYMBICORT 80 mcg-4.5 mcg/inh aerosol 1 61383016 228 Taking 12/11 00:00 :00 SYMBICORT 80 mcg-4.5 mcg/inh aerosol 1 21185547 228 Taking 06/09 00:00 :00 Tamsulosin HCl 0.4 MG Capsule 0 90 1 80484 002 510 Not Taking 05/31 00:00 :00 Tamsulosin HCl 0.4 MG Capsule 0 90 1 80875 002 510 Not Taking 03/09 00:00 :00 Tamsulosin HCl 0.4 MG Capsule 0 90 1 23703 002 510 Not Taking 01/29 00:00 :00 Tamsulosin HCl 0.4 MG Capsule 0 90 1 06283 002 510 Not Taking 12/03 00:00 :00 TAMSULOSIN HYDROCHLORI DE 0.4 mg capsule 0 90 1 36303 013 201 Not Taking 11/03 00:00 :00 TAMSULOSIN HYDROCHLORI DE 0.4 mg capsule 1 90 1 35410 013 201 Taking 09/02 00:00 :00 TAMSULOSIN HYDROCHLORI DE 0.4 mg capsule 1 90 1 31126 013 201 Start 09/02 00:00 :00 TAMSULOSIN HYDROCHLORI DE 0.4 mg capsule 0 90 1 54296 013 201 Stop 08/10 00:00 :00 TAMSULOSIN HYDROCHLORI DE 0.4 mg capsule 1 90 1 63413 013 201 Taking 07/01 00:00 :00 TAMSULOSIN HYDROCHLORI DE 0.4 mg capsule 1 90 1 60484 013 201 Taking 06/04 00:00 :00 TAMSULOSIN HYDROCHLORI DE 0.4 mg capsule 1 90 1 83535 013 201 Start 06/04 00:00 :00 TAMSULOSIN HYDROCHLORI DE 0.4 mg capsule 0 90 1 31240 013 201 Stop 03/18 00:00 :00 TAMSULOSIN HYDROCHLORI DE 0.4 mg capsule 1 90 1 40958 013 201 Taking 03/03 00:00 :00 TAMSULOSIN HYDROCHLORI DE 0.4 mg capsule 1 90 1 72834 013 201 Start 03/03 00:00 :00 TAMSULOSIN HYDROCHLORI DE 0.4 mg capsule 0 90 1 43665 013 201 Stop 01/27 00:00 :00 TAMSULOSIN HYDROCHLORI DE 0.4 mg capsule 1 90 1 38543 013 201 Taking 01/01 00:00 :00 TAMSULOSIN HYDROCHLORI DE 0.4 mg capsule 1 90 1 37236 013 201 Taking 12/11 00:00 :00 TAMSULOSIN HYDROCHLORI DE 0.4 mg capsule 1 90 1 57924 013 201 Taking 12/07 00:00 :00 TAMSULOSIN HYDROCHLORI DE 0.4 mg capsule 1 90 1 43342 013 201 Start 12/07 00:00 :00 TAMSULOSIN HYDROCHLORI DE 0.4 mg capsule 0 90 1 77639 013 201 Stop 12/11 00:00 :00 XOLAIR 150 mg powder for injection 1 0368938 4 062 Taking
--- OUTSIDE RECORDS SUMMARY | 2024-12-10 08:41 | XMS_ITS | Data Portability ---
Author Organization [facility] Address [address] [place] [address] Assessment No assessment recorded. Plan of Treatment Reminders Order Date Submit Date Provider Last Modified By Organization Details Last Modified Time Details Appointments OV EST 15 2024 09:45A M Flex Hutchinson Jr, MD Not available Not available Not available Lab urinalysi s, dipstick [address] [facility], [address] [place] [address], [phone], 11/18/2022 16:10:23 Referral None recorded. Procedures bladder scan (PROC) [address] [email or web address] [address], [phone], 12/07/2023 09:33:13 bladder scan (PROC) [address] [facility], [address] [place] [address], [phone], 11/18/2022 16:10:23 Surgeries None recorded. Imaging None recorded. Medication Orders None recorded. Patient TargetsNo targets recorded. Patient InstructionsNo instructions recorded. Reason for Referral None Reported. Results Created Date Observation Date Name Description Value Unit Range Abnormal Flag Note LastModifiedBy Organization Detail LastModifiedTime 11/19/1911/18/2022 urina lysis , dipst ick Leukocytes (reference range) small Not Available [address], [address], 11/18/2022 09:56:40 11/19/1911/18/2022 urina lysis , dipst ick Nitrite (reference range:) positi ve Not Available [address], [address], 11/18/2022 09:56:40 11/19/1911/18/2022 urina lysis , dipst ick Urobilinogen (reference range) 0.2 Not Available [address], [address], 11/18/2022 09:56:40 11/19/1911/18/2022 urina lysis , dipst ick Protein (reference range) negati ve Not Available [address], [address], 11/18/2022 09:56:40 11/19/1911/18/2022 urina lysis , dipst ick pH (reference range 5-8.5) 6.0 Not Available [address], [address], 11/18/2022 09:56:40 11/19/1911/18/2022 urina lysis , dipst ick Blood (reference range:) hemoly zed: Trace Not Available [address], [address], 11/18/2022 09:56:40 11/19/1911/18/2022 urina lysis , dipst ick Specific Casar (reference range) 1.020 Not Available [address], [address], 11/18/2022 09:56:40 11/19/1911/18/2022 urina lysis , dipst ick Ketone (reference range) negati ve Not Available [address], [address], 11/18/2022 09:56:40 11/19/19 23 11/18/2022 urina lysis , dipst ick Bilirubin (reference range) negati ve Not Available [facility] [address] [place] [address], [address], 11/18/2022 09:56:40 11/19/19 23 11/18/2022 urina lysis , dipst ick Glucose (reference range) negati ve Not Available [facility] [address] [place] [address], [address], 11/18/2022 09:56:40 11/19/1911/18/2022 bladd er scan (PROC ) Calculated Residual Urine: 109 ML Not Available [facility] [address] [place] [address], [address], 11/18/2022 09:56:42 12/07/19 24 12/07/2023 bladd er scan (PROC ) Calculated Residual Urine: 15 cc Not Available [facility] [address], [address], 12/07/2023 09:32:45 Result Notes None recorded. Problems Name Problem SNOMED Code Status Onset Date Resolution Date Notes Provider Name and Address Organization Details Recorded Time Benign prostatic hyperplasia 907384428 Active 2022 ROSSANA Perez [facility] [place] 3 10:44:49 Problem Notes None recorded. Medical Equipment None Reported. Allergies Allergen ID Allergen Name Allergen Category Reaction Reaction Severity Criticality Documentation Date Start Date Code Code System Note Provider Name and Address Organization Details Recorded Time 51895 Levaquin medicatio n Not available Not available Not available 11/17/2022 20570 2 RxNorm ROSSANA Perez [facility] [place] 3 10:42:55 Medications Name Sig Start Date Stop Date Status Note LastModified by Organization Details LastModified Time latanoprost 0.005 % eye drops INSTILL 1 DROP INTO EACH EYE AT BEDTIME EVERY NIGHT active Not Available Not Available No t Available metformin 500 mg tablet TAKE 1 TABLET BY MOUTH TWICE DAILY active Not Available Not Available No t Available promethazin e-DM 6.25 mg-15 mg/5 mL oral syrup TAKE 5 ML BY MOUTH 4 TIMES DAILY NEEDED FOR COUGH 11/18 completed Not Available Not Available Not Available albuterol sulfate 2.5 mg/3 mL (0.083 %) solution for nebulizatio n USE 1 VIAL (3 ML) IN NEBULIZER THREE TIMES DAILY NEEDED 11/18 completed Not Available Not Available Not Available chlorthalid one 25 mg tablet TAKE 1 TABLET BY MOUTH ONCE DAILY active Not Available Not Available No t Available amlodipine 5 mg tablet TAKE 1 TABLET BY MOUTH ONCE DAILY active Not Available Not Available No t Available allopurinol 100 mg tablet TAKE 2 TABLETS BY MOUTH ONCE DAILY 11/18 completed Not Available Not Available Not Available sulfamethox azole 800 mg-trimetho prim 160 mg tablet TAKE 1 TABLET BY MOUTH TWICE DAILY FOR 10 DAYS active Not Available Not Available No t Available glimepiride 2 mg tablet TAKE 1 TABLET BY MOUTH ONCE DAILY active Not Available Not Available No t Available ketorolac 0.5 % eye drops INSTILL 1 DROP 4 TIMES DAILY IN OPERATIVE EYE. TAPER DIRECTED 11/18 completed Not Available Not Available Not Available potassium chloride ER 20 mEq tablet,exte nded release(par t/cryst) TAKE 1 BY MOUTH ONCE DAILY active Not Available Not Available No t Available prednisolon e acetate 1 % eye drops,suspe nsion 11/18 completed Not Available Not Available Not Available gentamicin 0.3 % eye drops INSTILL 1 DROP 4 TIMES DAILY IN OPERATIVE EYE TAPER DIRECTED 11/18 completed Not Available Not Available Not Available tamsulosin 0.4 mg capsule TAKE 1 CAPSULE BY MOUTH ONCE DAILY active Not Available Not Available No t Available montelukast 10 mg tablet TAKE 1 TABLET BY MOUTH IN THE EVENING active Not Available Not Available No t Available furosemide 20 mg tablet TAKE 1/2 (ONE-HALF ) TABLET BY MOUTH ONCE DAILY active Not Available Not Available No t Available cefuroxime axetil 500 mg tablet TAKE 1 TABLET BY MOUTH TWICE DAILY 11/18 completed Not Available Not Available Not Available albuterol sulfate HFA 90 mcg/actuati on aerosol inhaler INHALE 2 PUFFS BY MOUTH EVERY 4 TO 6 HOURS NEEDED 11/17 completed Not Available Not Available Not Available lisinopril 40 mg tablet TAKE 1 TABLET BY MOUTH ONCE DAILY active Not Available Not Available No t Available cefdinir 300 mg capsule TAKE 1 CAPSULE BY MOUTH TWICE DAILY 11/18 completed Not Available Not Available Not Available fluticasone propionate 50 mcg/actuati on nasal spray,suspe nsion USE 1 TO 2 SPRAY(S) IN EACH NOSTRIL ONCE DAILY 11/18 completed Not Available Not Available Not Available rosuvastati n 20 mg tablet TAKE 1 TABLET BY MOUTH ONCE DAILY AT BEDTIME active Not Available Not Available No t Available Symbicort 80 mcg-4.5 mcg/actuati on HFA aerosol inhaler INHALE 2 PUFFS BY MOUTH TWICE DAILY WITH SPACER USE REGULARLY , RINSE MOUTH AFTER EACH USE 11/18 completed Not Available Not Available Not Available Arnuity Ellipta 200 mcg/actuati on powder for inhalation INHALE 1 PUFF BY MOUTH ONCE DAILY DIRECTED active Not Available Not Available No t Available Arnuity Ellipta 100 mcg/actuati on powder for inhalation INHALE 1 PUFF BY MOUTH ONCE DAILY DIRECTED active Not Available Not Available No t Available Vitals Date Recorded Body height Body weight Body mass index (BMI) Body temperature Provider Name and Address Organization Details Last Updated DateTime 11/18/2022 170.18 cm 748508.21 g 36.8 kg/m2 98 [degF] Aleah Jaramillo [facility] [place] 11/18/2022 09:04:16 Date Recorded Body height Body mass index (BMI) Body weight Body temperature Provider Name and Address Organization Details Last Updated DateTime 12/07/2023 167.64 cm 33.9 kg/m2 26734.4 g 97.5 [degF] Sydnee Mix [facility] [place] 12/07/2023 09:07:53 Social History Question Answer Notes LastModified by Organizat ion Details LastModified Time Tobacco Smoking Status Never Smoker Mariah solano [facility] [place] 11/17/2022 10:45:25 What Is Your Level Of Alcohol Consumption? None [email or web address] Information not available 11/17/2022 What Is Your Level Of Caffeine Consumption? Occasional Information not available 12/07/2023 Sex: Unknown Functional Status None recorded. Mental Status None recorded. Family History Nothing Reported Notes:mother old ag e father old age Medical History No medical history recorded. Past Encounters Encounter ID Performer Location Encounter Start Date Encounter Closed Date Diagnosis/Indication Diagnosis SNOMED-CT Code Diagnosis ICD10 Code Diagnosis Note [id number] Flex Hutchinson Jr, MD [facility] [place] [address] 11/18/2022 08:54:44 11/18/2022 09:53:08 Benign prostatic hyperplasia with outflow obstruction 800866243 N40.1 Patient with history of BPH status post UroLift without significan t improvemen t. His postvoid residual after your left was still 674 and there is believed to be bladder decompensa tion responsibl e. He continues to self cath 3 to 5 times a day with adequate residuals. Patient continues on tamsulosin and we discussed that he may discontinu e that. Simple renal cyst 176440 09 N28.1 patient with a history of the 2 simple renal cyst on his right kidney. They are rather small and we discussed benign nature and no further workup is necessary. Chronic ki dney disease 944373178 N18.9 patient to see his nephrologi st in 2 weeks. [id number] Flex Hutchinson Jr, MD [facility] [place] [address] [place] [address] 12/07/2023 08:50:17 12/07/2023 09:24:21 Benign prostatic hyperplasia with outflow obstruction 841986634 N40.1 Patient with history of BPH status post UroLift without significan t improvemen t. His postvoid residual after your left was still 674 and there is believed to be bladder decompensa tion responsibl e. He continues to self cath 6 to 7 times a day with residuals of 6-700 cc by report. We discontinu ed the tamsulosin last year. He is catheteriz ing without difficulty . 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 Recent nephrology visit reportedly stable. Simple renal cyst 278126 09 N28.1 patient with a history of the 2 simple renal cyst on his right kidney. They are rather small and we discussed benign nature and no further workup is necessary. Health Concerns Section Related Observation LastModified by Organization Detai ls LastModified Time None Recorded Concern Status LastModified by Organization Details LastModified Time None Recorded Advance Directives Directive None Recorded Payers Encounter Date Sequence Insurance Name Policy Number Policy Flowers Covered Member ID Flowers Member ID Guarantor Name 11/18/2022 1 [employer] (PPO) Bob Sharp [id number] Bob Sharp 11/18/2022 2 MED[place]ARE[place]ICARE[place] Bob D Sharp [id number] Bob Sharp 12/07/2023 1 [employer] (MEDICARE REPLACEMENT/A DVANTAGE - PPO) Bob Sharp [id number] Bob Rubio Notes Date Note Type Note Provider Name and Address Organization Details Recorded Time 11/18/2022 text/html Patient with his tory of BPH and urinary retention. He underwent a UroLift procedure in September 2021. follow-up revealed that his postvoid residual was still elevated at 674. His postvoid residual prior to the UroLift was 1 L. bladder decompensation was suspected and patient was taught how to catheterize at his last visit in April 2022. He states he catheterizes 3 to 5 times a day with residuals of 600-800 cc. His last PSA was 2.7 in April 2022.patient also with history of right-sided renal cyst most recent ultrasound was unchanged from previous Showing 2 anechoic structures in the right kidney measuring 1.9 cm consistent with cyst. We discussed the benign nature of simple renal cyst.Patient also with chronic kidney disease. 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 He states he voids very little between catheterizations. Flex Hutchinson Jr, MD [address] [place] [address], [address], [place], [address], [place] [facility] [place] & [place] 11/18/2022 15:32:30 12/07/2023 text/html Patient is a 77-year-old white male with a history of BPH and bladder decompensation. He underwent a UroLift procedure in September 2021. Follow-up revealed that his postvoid residual was still elevated at 674. His postvoid residual prior to the UroLift was 1 L. Patient was taught how to self cath and continues to do that without difficulty. He states he catheterize a 6 to 7 times a day with residuals of 6-700 cc. States he drinks a lot of water during his Day.Patient also with history of chronic kidney disease. He follows with Nephrology and states a recent visit reportedly showed his renal function is stable. Flex Hutchinson Jr, MD [address] [place] [address], [address], [place], [address], [facility] [place] [facility] [place] & [place] 12/07/2023 09:33:37
[2024-12-10 08:44] LABS: Microscopic, Urine URINE MICROSCOPIC (MICROSCOPIC)
[2024-12-10 09:09] LABS: Appearance,Urine CLEAR (Clear); Bilirubin,Urine Negative (Negative); Blood, Urine Negative (Negative); Color,Urine YELLOW (Yellow); Glucose,Urine (UA) Negative (Negative); Ketones,Urine Negative (Negative); Leukocyte Esterase,Urine 1+ (Negative); Nitrate,Urine POSITIVE (Negative); Protein,Urine Negative (Negative); Urobilinogen,Urine 0.2 EU/dl (0.2)
[2024-12-10 09:13] LABS: Hematocrit 41.3 % (42.0-52.0); Hemoglobin 13.9 g/dL (14.1-18.0); Mean Corpuscular HGB Conc 33.7 g/dL (31.8-35.4); Mean Corpuscular Hemoglobin 29.8 pg (27.0-31.2); Mean Corpuscular Volume 88.6 fl (80-94); Nucleated Red Blood Cells # 0 10^3/uL; Nucleated Red Blood Cells % 0 %; Platelet Count 341 K/mm3 (142-424); Red Blood Count 4.66 M/mm3 (4.60-6.20); Red Cell Distribution Width 13.2 % (11.5-17.5); Red Cell Distribution Width-SD 42.4 fL; White Blood Count 8.4 K/mm3 (4.8-10.8)
[2024-12-10 09:35] LABS: Creatinine,Urine Random 77 mg/dL (Not Estab.)
[2024-12-10 09:42] LABS: Chloride 104 mmol/L (98-107); Potassium 4.2 mmoL/L (3.5-5.1); Sodium 140 mmol/L (136-145)
[2024-12-10 09:45] LABS: Anion Gap 16.2 mEq/L (5-15); Blood Urea Nitrogen 20 mg/dl (9-20); Calcium 9.5 mg/dl (8.4-10.2); Carbon Dioxide 24 mmol/L (22.0-30.0); Estimated Glomerular Filt Rate 73 ml/min (>60); GFR (African American) 88 ML/MIN (>60); Glucose 165 mg/dl (74-100); Phosphorous 3.5 mg/dl (2.5-4.5)
[2024-12-10 09:53] LABS: Bacteria,Urine 4+ /lpf
[2024-12-10 10:04] LABS: 25-OH Vitamin D, Total 55.2 ng/mL (30-100)
== END 2024-12-10 23:59 | disposition home or self-care (01) ==
LOC: LAB 08:39
PROVIDERS: PCP Family Medicine; Visit Provider Internal Medicine Nephrology
DX: N18.2 Chronic kidney disease, stage 2 (mild) (principal)
CPT/HCPCS: 36415; 80069; 81001; 82306; 82570; 84156; 85027; 87086; 87088; 87186

== ENCOUNTER 2025-01-02 15:20 | Outpatient (CLI) | payer MEDICARE, SELFPAY ==
--- OUTSIDE RECORDS SUMMARY | 2025-01-02 15:22 | XMS_ITS | Data Portability ---
Author Organization [facility] and [facility] Ethel Address [address] [place] [address] Assessment No assessment recorded. Plan of Treatment Reminders Order Date Submit Date Provider Last Modified By Organization Details Last Modified Time Details Appointments OV EST 15 2025 10:45A M Flex Hutchinsno Jr, MD Not available Not available Not available Lab urinalysi s, dipstick [address] [facility], [address] [place] [address], [phone], 11/18/2022 16:10:23 Referral None recorded. Procedures bladder scan (PROC) 2023 024 [facility]5 [facility] [address], [phone], 12/07/2023 09:33:13 bladder scan (PROC) [address] [facility], [address] [place] [address], [phone], 11/18/2022 16:10:23 Surgeries None recorded. Imaging None recorded. Medication Orders None recorded. Patient TargetsNo targets recorded. Patient InstructionsNo instructions recorded. Reason for Referral None Reported. Results Created Date Observation Date Name Description Value Unit Range Abnormal Flag Note LastModifiedBy Organization Detail LastModifiedTime 11/19/1911/18/2022 urina lysis , dipst ick Leukocytes (reference range) small Not Available [address], [address], 11/18/2022 09:56:40 11/19/1911/18/2022 urina lysis , dipst ick Nitrite (reference range:) positi ve Not Available [address], [address], 11/18/2022 09:56:40 11/19/1911/18/2022 urina lysis , dipst ick Urobilinogen (reference range) 0.2 Not Available [address], [address], 11/18/2022 09:56:40 11/19/1911/18/2022 urina lysis , dipst ick Protein (reference range) negati ve Not Available [address], [address], 11/18/2022 09:56:40 11/19/1911/18/2022 urina lysis , dipst ick pH (reference range 5-8.5) 6.0 Not Available [address], [address], 11/18/2022 09:56:40 11/19/1911/18/2022 urina lysis , dipst ick Blood (reference range:) hemoly zed: Trace Not Available [address], [address], 11/18/2022 09:56:40 11/19/1911/18/2022 urina lysis , dipst ick Specific [place] (reference range) 1.020 Not Available [address], [address], 11/18/2022 09:56:40 11/19/1911/18/2022 urina lysis , dipst ick Ketone (reference range) negati ve Not Available [address], [address], 11/18/2022 09:56:40 11/19/19 23 11/18/2022 urina lysis , dipst ick Bilirubin (reference range) negati ve Not Available [facility] [address] [place] [address], [phone], 11/18/2022 09:56:40 11/19/19 23 11/18/2022 urina lysis , dipst ick Glucose (reference range) negati ve Not Available [facility] [address] [place] [address], [address], 11/18/2022 09:56:40 11/19/1911/18/2022 bladd er scan (PROC ) Calculated Residual Urine: 109 ML Not Available [facility] [address] [place] [address], [address], 11/18/2022 09:56:42 12/07/19 24 12/07/2023 bladd er scan (PROC ) Calculated Residual Urine: 15 cc Not Available [facility] [address], [address], 12/07/2023 09:32:45 Result Notes None recorded. Problems Name Problem SNOMED Code Status Onset Date Resolution Date Notes Provider Name and Address Organization Details Recorded Time Benign prostatic hyperplasia 227483062 Active 2022 ROSSANA Perez [facility] [place] [facility] [place] 3 10:44:49 Problem Notes None recorded. Medical Equipment None Reported. Allergies Allergen ID Allergen Name Allergen Category Reaction Reaction Severity Criticality Documentation Date Start Date Code Code System Note Provider Name and Address Organization Details Recorded Time 39943 Levaquin medicatio n Not available Not available Not available 11/17/2022 04930 2 RxNorm ROSSANA Perez [facility] [place] [facility] [place] 3 10:42:55 Medications Name Sig Start Date Stop Date Status Note LastModified by Organization Details LastModified Time latanoprost 0.005 % eye drops INSTILL 1 DROP INTO EACH EYE EVERY DAY AT BEDTIME active Not Available Not Available [...] completed Not Available Not Available Not Available atorvastati n 10 mg tablet TAKE 1 TABLET BY MOUTH ONCE DAILY active Not Available Not Available No t Available chlorthalid one 25 mg tablet TAKE [...] TAKE 1 TABLET BY MOUTH ONCE DAILY FOR 90 DAYS active Not Available Not Available No t Available ketorolac 0.5 % eye drops INSTILL 1 DROP 4 TIMES DAILY IN OPERATIVE EYE. TAPER DIRECTED 11/18 completed Not Available Not Available Not Available potassium chloride ER 20 mEq tablet,exte nded release(par t/cryst) TAKE 1 TABLET BY MOUTH ONCE DAILY FOR 90 DAYS active Not Available Not Available No [...] Not Available Not Available No t Available budesonide DR - ER 3 mg capsule,del ayed,extend ed release TAKE 3 CAPSULES BY MOUTH ONCE DAILY active Not Available Not Available No t Available cefuroxime axetil 500 mg tablet TAKE 1 TABLET BY MOUTH EVERY 12 HOURS active Not Available Not Available No t Available albuterol sulfate HFA 90 mcg/actuati on aerosol inhaler INHALE 2 PUFFS BY MOUTH EVERY 4 TO 6 HOURS NEEDED DIRECTED active Not Available Not Available No t Available lisinopril 40 mg tablet TAKE 1 [...] Details Last Updated DateTime 11/18/2022 170.18 cm 418533.21 g 36.8 kg/m2 98 [degF] Aleah Gaffneys [facility] [place] 11/18/2022 09:04:16 Date Recorded Body height Body mass index (BMI) Body weight Body temperature Provider Name and Address Organization Details Last Updated DateTime 12/07/2023 167.64 cm 33.9 kg/m2 25234.4 g 97.5 [degF] Sydnee Baldwinant [facility] [place] 12/07/2023 09:07:53 Date Recorded Body height Body mass index (BMI) Body weight Body temperature Provider Name and Address Organization Details Last Updated DateTime 12/19/2024 167.64 cm 33.9 kg/m2 00705.4 g 98.1 [degF] Domo Call [facility] [place] 12/19/2024 09:44:54 Social History Question Answer Notes LastModified by Organizat ion Details LastModified Time Tobacco Smoking Status Never Smoker Mariah solano, [facility] [place] 11/17/2022 10:45:25 What Is Your Level Of Alcohol Consumption? None [email or web address] Information not available 11/17/2022 What Is Your Level Of Caffeine Consumption? Occasional [email or web address] Information not available 12/07/2023 Sex: Unknown Functional Status None recorded. Mental Status None recorded. Family History Nothing Reported Notes:mother old ag e father old age Medical History No medical history recorded. Past Encounters Encounter ID Performer Location Encounter Start Date Encounter Closed Date Diagnosis/Indication Diagnosis SNOMED-CT Code Diagnosis ICD10 Code Diagnosis Note [id number] Flex Hutchinson Jr, MD [facility] [address] [place] [phone] 11/18/2022 08:54:44 11/18/2022 09:53:08 Benign prostatic hyperplasia with outflow obstruction 590477191 N40.1 Patient with history of BPH status [...] may discontinu e that. Simple renal cyst 620419 09 N28.1 patient with a history of the 2 simple renal cyst on his right kidney. They are rather small and we discussed benign nature and no further workup is necessary. Chronic ki dney disease 486150915 N18.9 patient to see his nephrologi st in 2 weeks. [id number] Flex Hutchinson Jr, MD [facility] [place] [address] [place] [address] 12/07/2023 08:50:17 12/07/2023 09:24:21 Benign prostatic hyperplasia with outflow obstruction 822114410 N40.1 Patient with history of BPH status [...] ing without difficulty . Hypotonic urinary bladder 141591027 N31.2 see above Chronic ki dney disease 337324554 N18.9 patient with history of chronic kidney disease likely secondary to his bladder outlet obstructio n. Recent nephrology visit reportedly stable. Simple renal cyst 298708 09 N28.1 patient with a history of the 2 simple renal cyst on his right kidney. They are rather small and we discussed benign nature and no further workup is necessary. [id number] Flex Hutchinson Jr, MD [facility] [address] [phone] 12/19/2024 09:33:58 12/19/2024 10:14:55 Benign prostatic hyperplasia with outflow obstruction 194888105 N40.1 N13.8 Patient with history of BPH status post UroLift without significan t improvemen t. His postvoid residual was still 674 and there is believed to be bladder decompensa tion responsibl e. He continues to self cath 4-5 times a day with residuals of 300-400 cc by report. We discontinu ed the tamsulosin last year. He is catheteriz ing without difficulty . 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 They are rather small and we discussed benign nature and no further workup is necessary. Chronic ki dney disease stage 2 910610509 N18.2 Patient's creatinine has improved significan tly with intermitte nt self catheteriz ation. Recent creatinine was 0.8 in August 2024. Prostate s pecific antigen above reference range 449219168 R97.20 Patient with PSA of 4.5 in August 2024. This is stable from November 2023. We discussed that this level is within normal limits for his age and we will continue monitoring . Health Concerns Section Related Observation LastModified by Organization Detai ls LastModified Time None Recorded Concern Status LastModified by Organization Details LastModified Time None Recorded Advance Directives Directive None Recorded Payers Insurance Date Sequence Insurance Name Policy Number Policy Flowers Covered Member ID Flowers Member ID Guarantor Name 12/19/2024 2 MED[place]ARE[place]ARE[place] Bob Rubio [id number] Bob Rubio 12/19/2024 1 [employer] (PPO) Bob Rubio [id number] Bob Rubio 12/19/2024 1 [employer] (MEDICARE REPLACEMENT/A DVANTAGE - PPO) Bob Rubio [id number] Bob Rubio 07/08/2022 SLIDING FEE SCHEDULE - DISCOUNT Bob Rubio Notes Date Note Type Note [...] He is set up to see his leadership program associate in 2 weeks. He states he voids very little between catheterizations. Flex Hutchinson Jr, MD [address] [place] [address], [address], [place], [address], [place] [facility] [place] [facility] [place] 11/18/2022 15:32:30 12/07/2023 text/html Patient is a [...] function is stable. Flex Hutchinson Jr, MD [address] [place] [address], [address], [place], [address], [facility] 12/07/2023 09:33:37 12/19/2024 text/html Patient is a 79-year-old white male with history of BPH and decompensated bladder. Returns today in routine follow-up. He continues to catheterize 4 to 5 times a day without difficulty. He states his residuals are 3-400 cc. States he drinks plenty of water during the day. States his chronic kidney disease has improved with self catheterization. Recent creatinine was 0.8.PSA in August 2024 was 4.5 which is the same as it was in November 2023. Flex Hutchinson Jr, MD [address] [facility], [address], [place], [address], [place] [facility] [place] [facility] [place] 12/19/2024 15:42:58
[2025-01-02 16:48] LABS: Alanine Aminotransferase 24 U/L (12-78); Albumin Level 4.6 g/dl (3.5-5.0); Albumin/Globulin Ratio 1.6 (1.1-1.8); Alkaline Phosphatase 91 U/L (38-126); Anion Gap 10.5 mEq/L (5-15); Aspartate Amino Transferase 23 U/L (17-59); Bilirubin,Total 0.6 mg/dl (0.2-1.3); Blood Urea Nitrogen 23 mg/dl (9-20); Carbon Dioxide 26 mmol/L (22.0-30.0); Chloride 106 mmol/L (98-107); Estimated Glomerular Filt Rate 82 ml/min (>60); GFR (African American) 99 ML/MIN (>60); Globulin 2.8 g/dL (1.3-3.2); Glucose 91 mg/dl (74-100); Potassium 3.5 mmoL/L (3.5-5.1); Sodium 139 mmol/L (136-145); Total Protein,Serum 7.4 g/dl (6.3-8.2)
== END 2025-01-02 23:59 | disposition home or self-care (01) ==
LOC: LAB 15:21
PROVIDERS: PCP Family Medicine; Visit Provider Nurse Practitioner Family
DX: K75.4 Autoimmune hepatitis (principal); K86.9 Disease of pancreas, unspecified; R74.8 Abnormal levels of other serum enzymes
CPT/HCPCS: 36415; 80053

== ENCOUNTER 2025-04-03 14:39 | Outpatient (CLI) | payer MEDICARE, SELFPAY ==
--- OUTSIDE RECORDS SUMMARY | 2025-04-03 14:42 | XMS_ITS | Clinical Summary ---
Author Organization Healthcare Address [address] [place] [address] Care Team Providers Care Autoglazier Name Role Phone Moris Egan MD Primary Care Provider [phone] Allergies Active Allergy Reactions Criticality Noted Date Comments Levofloxacin Itching,Swelling High 10/01/2020 Statins Unknown - Patient st ates they do not know rxn details Low 10/01/2020 Medications amLODIPine (Norvasc) 5 MG tablet Take by mouth 1 (one) time each day. Active glimepiride (Amaryl) 2 MG tablet Take 1 tablet (2 mg) by mouth 1 (one) time each day before breakfast. Active potassium chloride CR (Klor-Con M20) 20 MEQ ER tablet Take 1 tablet (20 mEq) by mouth 1 (one) time each day. Do not crush or chew. Active furosemide (Lasix) 20 MG tablet Take by mouth 1 (one) time each day. Active lisinopril 40 MG tablet Take 1 tablet (40 mg) by mouth 1 (one) time each day. Active tamsulosin (Flomax) 0.4 MG 24 hr capsule Take 0.4 mg by mouth every night. Active albuterol 108 (90 Base) MCG/ACT inhaler 04/01/2021 Act percy fluticasone (Flonase) 50 MCG/ACT nasal spray USE 1 TO 2 SPRAY(S) IN EACH NOSTRIL ONCE DAILY 08/04/2021 Active latanoprost (Xalatan) 0.005 % ophthalmic solution INSTILL 1 DROP INTO EACH EYE IN THE EVENING 11/09/2021 Active chlorthalidone (Hygroton) 25 MG tablet Take 1 tablet (25 mg) by mouth 1 (one) time each day. 11/27/2022 Active atorvastatin (Lipitor) 10 MG tablet Take 1 tablet by mouth daily. Active Active Problems Problem Noted Date Diagnosed Date Other hyperlipidemia 12/14/2024 Benign prostatic hyperplasia without lower urinary tract symptoms 12/14/2024 Severe obesity (BMI 35.0-39.9) with comorbidity 11/28/2023 Persistent proteinuria 12/03/2021 Type 2 diabetes mellitus wit h chronic kidney disease, without long-term current use of insulin 12/03/2021 CKD (chronic kidney disease) stage 2, GFR 60-89 ml/min 10/06/2020 Hypertension 10/01/2020 Microalbuminuria 09/11/2020 Immunizations Immunization Administration Dates Next Due Influenza, high-dose, quadrivalent 05/29/2020,,05/27/2016 Pneumococcal Conjugate PCV 13 05/27/2016 Pneumococcal Polysaccharide PPV23 11/22/2017 Tdap 11/22/2017 Family History Medical History Relation Name Comments Conversions - Other Father Head inj ury Hypertension Father Diabetes Mother Heart attack Mother Osteoporosis Mother Relation Name Status Comments Father Mother Social History Tobacco Use Types Packs/Day Years Used Date Smoking Tobacco: Never Passive Smoke Exposure: Never Smokeless Tobacco: Never Tobacco Cessation:Counseling Given: Not Answered PHQ-2 Answer Date Recorded Patient Health Questionnaire-2 Score 0 11/28/2023 Sex and Gender Information Value Date Recorded Sex Assigned at Not on file Legal Sex Male 8:28 PM EDT Gender Identity Not on file Sexual Orientation Not on file Last Filed Vital Signs Vital Sign Reading Time Taken Comments Blood Pressure 122/82 12/14/2024 11:53 AM EDT Pulse 84 12/14/2024 11:53 AM EDT Temperature 36.7 C (98 F) 12/14/2024 11:53 AM EDT Respiratory Rate 20 12/14/2024 11:53 AM EDT Oxygen Saturation 94% 11/28/2023 12:48 PM EDT Inhaled Oxygen Concentration - - Weight 102 kg (225 lb) 12/14/2024 11:53 AM EDT Height 167.6 cm (5' 6 ) 12/14/2024 11:53 AM EDT Body Mass Index 36.32 12/14/2024 11:53 AM EDT Plan of Treatment Upcoming Encounters Date Type Department Care Team (Late st Contact Info) Description 12/27/2025 11:40 AM EDT Office Visit Psychiatric [address] ROSSANA Shetty [phone] Espinoza Lopez MD [address] [place] [phone] Health Maintenance Due Date Last Done Comments [facility]-Diabetes: Hemoglobin A1C 1945 [facility]-Hepatitis C Screening 1945 [facility]-Medicare Annual Wellness (AWV) 1945 [facility]-Infant/Child/Adol SDOH Screenings 1945 Diabetes: Dental Exam 12/16/1957 [facility]- SDOH Screenings 12/16/1965 [facility]-Adult SDOH Screenings 12/16/1965 [facility]-Zoster Vaccines (1 of 2) 12/16/1997 [facility]-RSV Vaccine: 60+ Years or (1 - 1-dose 75+ series) 12/16/2022 [id number] Vaccine (3 - season) 2024 07/29/2021, 11/05/2020 [facility]-Depression Screening 11/27/2024 11/28/2023 [facility]-Influenza Vaccine (#1) 04/29/202506/11, 05/29/2020, 06/20/2017, Additional history exists [facility]-DTaP,Tdap,and Td Vaccines (2 - Td or Tdap) 11/23/2027 11/22/2017 [facility]-Pneumococcal Vaccine: 50+ Years Completed 11/22/2017, 11/17/2016, 05/27/2016 FIT-DNA Discontinued 07/03/2023 [facility]-Colorectal Cancer Screening Discontinued [facility]-Obesity Intervention Completed 025, 11/28/2023, 12/02/2022 CT Colonography Discontinued Colonoscopy Discontinued FIT Discontinued FOBT Discontinued HPV Vaccines Aged Out No longer eligi ble based on patient's age to complete this topic Sigmoidoscopy Discontinued [facility]-HIB Vaccines Aged Out No longer e ligible based on patient's age to complete this topic [facility]-Hepatitis A Vaccines Aged Out No longer eligible based on patient's age to complete this topic [facility]-IPV Vaccines Aged Out No longer e ligible based on patient's age to complete this topic [facility]-Rotavirus Vaccines Aged Out No lo nger eligible based on patient's age to complete this topic Insurance [facility] MEDICARE [phone] (Work) [address] [id number] Advance Directives Documents on File Type Date Recorded Patient Supervising Bailiff Expl anation Advance Directives and Living Will 12/07/2021 10:54 AM Bob Rubio living [email or web address] Advance Directives and Living Will 12/03/2021 2:20 PM Care Teams Autoglazier Relationship Specialty Start Date End Date Moris Egan MD [address] [place] [address] PCP - General 01/09/21
[2025-04-03 16:10] LABS: Alanine Aminotransferase 25 U/L (12-78); Albumin Level 4.3 g/dl (3.5-5.0); Albumin/Globulin Ratio 1.5 (1.1-1.8); Alkaline Phosphatase 89 U/L (38-126); Anion Gap 13.1 mEq/L (5-15); Aspartate Amino Transferase 27 U/L (17-59); Bilirubin,Total 0.6 mg/dl (0.2-1.3); Blood Urea Nitrogen 24 mg/dl (9-20); Calcium 9.4 mg/dl (8.4-10.2); Carbon Dioxide 26 mmol/L (22.0-30.0); Chloride 100 mmol/L (98-107); Creatinine,Serum 0.70 mg/dl (0.66-1.25); Estimated Glomerular Filt Rate 109 ml/min (>60); GFR (African American) 132 ML/MIN (>60); Globulin 2.8 g/dL (1.3-3.2); Glucose 275 mg/dl (74-100); Potassium 4.1 mmoL/L (3.5-5.1); Sodium 135 mmol/L (136-145); Total Protein,Serum 7.1 g/dl (6.3-8.2)
== END 2025-04-03 23:59 | disposition home or self-care (01) ==
LOC: LAB 14:40
PROVIDERS: PCP Family Medicine; Visit Provider Nurse Practitioner Family
DX: K75.4 Autoimmune hepatitis (principal)
CPT/HCPCS: 36415; 80053